=== PATIENT | female | born 1935 | race Caucasian/White ===

== ENCOUNTER 2020-07-17 13:30 | Observation (INO) | payer MEDICARE, SELFPAY ==
[2020-07-17] VITALS (10 sets, daily range): BP systolic 105–162; BP diastolic 58–91; PULSE 61–74; RESP 14–27; TEMP 36.1–36.6; O2SAT 99–100; BMI 19.9
--- NOTE | ~2020-07-17 | XR_ITS ---
EXAMINATION: XR foot RT min 3V DATE: 07/18/2020 15:45 INDICATION: Right foot pain TECHNIQUE: Dorsoplantar, lateral, and 2 oblique views of the right foot were obtained. COMPARISON: None. FINDINGS: The bones are osteopenic which limits the sensitivity for fracture however none is seen. 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 Moderate to severe osteoarthri tis is also noted in the midfoot. The soft tissues are unremarkable. IMPRESSION: 1. No acute osseous abnormality, sensitivity limited by osteopenia. Reviewed, dictated and finalized at location A.
--- NOTE | ~2020-07-17 | CT_ITS ---
EXAMINATION: CT brain wo con DATE: 07/17/2020 14:10 INDICATION: Head injury. TECHNIQUE: Computed tomography (CT) of the head was performed without intravenous contrast. The mA wa s adjusted according to patient size. Iterative reconstruction technique was employed. The dose-lengt h product was 605.33 mGy-cm. COMPARISON: None FINDINGS: There are scattered areas of low attenuation in the cerebral white matter. There is no intr acranial hemorrhage, acute infarction, or abnormal intracranial mass lesion. The ventricles are mariana l in size. There is mild mucosal thickening in the paranasal sinuses. The mastoid air cells are mariana l. There is right lateral scalp soft tissue swelling. IMPRESSION: 1. Extensive nonspecific cerebral white matter disease, which likely represents chronic small vessel ischemic disease. Reviewed, dictated and finalized at location A.
--- NOTE | ~2020-07-17 | XR_ITS ---
EXAMINATION: XR knee RT 3V DATE: 07/18/2020 15:45 INDICATION: Right knee pain TECHNIQUE: Three views of the right knee were obtained. COMPARISON: None. FINDINGS: Alignment is normal. No fracture or osteochondral lesion. There is moderate tricompartmenta l osteoarthritis. No joint effusion/synovitis. Calcified atherosclerosis is noted. IMPRESSION: 1. No acute osseous abnormality. Reviewed, dictated and finalized at location A.
--- NOTE | ~2020-07-17 | CT_ITS ---
EXAMINATION: CT cervical spine wo con EXAM DATE: 07/17/2020 14:10 INDICATION: Head injury with neck pain. TECHNIQUE: Spiral CT of the cervical spine was performed without contrast. Axial images were reviewe d. Coronal and sagittal reformatted images cervical spine were also reviewed. The dose-length produc t (DLP) for this examination was 144.06 mGy-cm. The exposure was tailored according to patient size (auto mA exposure control), and iterative reconstruction (ASIR) was used as additional dose reduction technique. There is no prior study for comparison. FINDINGS: There is mild reversal of the normal cervical lordosis which may be degenerative, positiona l or spasm. 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 There is fusion of the C6-7 vertebral bodies which most likely is degenerative. There is severe d isc disease at C5-6 and C7-T1, moderate to severe at the 2 levels above. Advanced cervical arthropath y. There is no evidence of acute cervical fracture. The odontoid process is intact. Pre-dens space is normal. Prevertebral soft tissue is normal. There are no soft tissue abnormalities identified. The re is no disc space widening or traumatic vertebral body subluxation suspected. Vertebral body and d isc heights are well-maintained. A detailed level by level evaluation of spondylosis can be added a s addendum if requested. IMPRESSION: 1. No acute cervical fracture. 2. Reversal of normal cervical lordosis. 3. Advanced spondylosis. Reviewed, dictated and finalized at location A.
--- NOTE | 2020-07-17 13:34 | ECG_ITS ---
Measurements Intervals [place] Rate: 56 P: -26 MI: 142 QRS: 66 QRSD: 73 T: 40 QT: 408 QTc: 394 Interpretive Statements SINUS BRADYCARDIA WITH SINUS ARRHYTHMIA BASELINE ARTIFACT- I, II, III, AVR, AVL, AVF BORDERLINE ECG Electronically Signed On 07-17-2020 15:46:18 CDT by Dameon Gerard D.O.
--- NOTE | 2020-07-17 14:13 | ED.FALL ---
HPI - Fall General Chief Complaint: Fall Stated Complaint: fall Time Seen by Provider: 07/17/20 13:30 Source: patient Mode of arrival: EMS Limitations: no limitations History of Present Illness HPI Narrative: 85-year-old female Patient indicates that she tripped over a rug in her kitchen and fell and hit the cabinets on the way down She denied being ill before hand, experiencing any dizziness or other distress that might have triggered the episode She seems to have weathered it pretty well, she does have a little bit of neck pain and an increase in the pain of her right leg which has been there for quite a while and which she believes was related to her attempts to repair her garbage disposal But there is no new numbness or weakness, she did not lose consciousness, she does not have a headache, and she does not take blood thinners Related Data Allergies Allergy/AdvReac Type Severity Reaction Status Date / Time aspirin Allergy Unknown Stomach Verified 07/17/20 13:48 cramps iron Allergy Unknown Unknown Verified 07/17/20 13:48 Penicillins Allergy Unknown Blister Verified 07/17/20 13:48 [employer] AdvReac Severe STOMACH Uncoded 07/17/20 13:48 PAIN Review of Systems Review of Systems: All systems reviewed & are unremarkable except as noted in HPI and below Constitutional: Constitutional: Reports no additional constitutional complaints, Denies chills, Denies fever(s) and Denies headache(s) Eyes: Eyes: Reports no additional eye complaints and Denies change in vision ENT: Denies headache(s) and Denies sore throat Cardiovascular: Cardiovascular: Denies chest pain and Denies dyspnea Respiratory: Respiratory: Denies cough and Denies dyspnea Gastrointestinal: Gastrointestinal: Denies abdominal pain, Denies diarrhea and Denies vomiting Genitourinary: Genitourinary: Denies urinary frequency and Denies dysuria Musculoskeletal: Musculoskeletal: Reports back pain, Denies deformity, Reports arthralgias, Reports joint swelling and Denies numbness Integumentary/Breasts: Skin/Breast: Denies rash and Denies wounds Neurologic: Denies headache(s), Denies focal weakness and Denies numbness Psychiatric: Psychiatric: Reports no additional psychiatric complaints Endocrine: Endocrine: Reports no additional endocrine complaints Hematologic/Lymphatic: Hematologic/Lymphatic: Reports no additional hematologic/lymphatic complaints Allergic/Immunologic: Allergic/Immunologic: Reports no additional allergic/immunologic complaints PMFSH Family History Family History Grandparent Family history of cardiovascular disease Cerebrovascular accident Father Family history of malignant neoplasm, Onset Age: 71 Mother Family history of chronic obstructive pulmonary disease, Onset Age: 88 Social History Social History Smoking status: Never smoker Alcohol intake: never Exam Const: General: cooperative, no acute distress and alert Nutritional Appearance: thin Orientation/consciousness: patient oriented x3 (alert) Other: Elderly, frail HENMT: Head: normal to inspection, normocephalic and atraumatic Ears: external ears normal General nose exam: no epistaxis Other: Hard of hearing Eyes: Conjunctivae: conjunctivae normal Pupils: Equal, round and reactive pupils present EOM: EOMs intact bilaterally Neck: Neck: normal visual inspection, supple and no JVD Chest: Other: She has some slight left-sided rib tenderness which is persistent since sustaining a couple fractures a number of years ago Resp: Effort & Inspection: normal respiratory effort and not labored Auscultation: clear to auscultation bilaterally and other (BS =) Cardio: Rate: regular rate Rhythm: regular rhythm Heart sounds: no murmurs GI: GI Palp: Yes Soft to palpation and No Tenderness to palpation present (GI) Other: Soft, nontender :
[2020-07-17 14:59] LABS: Basophils Percent Auto 0.2 % (0.2-1.2); Eosinophils Percent Auto 0.2 % (0-4.4); Hematocrit 40.2 % (37.0-47.0); Hemoglobin 12.8 g/dL (12.0-15.0); Immature Granulocyte Absolute 0.08 K/mm3 (0.00-0.031); Immature Granulocyte Percent A 0.6 % (0-0.5); Lymphocytes Absolute Auto 0.75 K/mm3 (0.9-3.2); Lymphocytes Percent Auto 5.2 % (18.3-44.2); Mean Corpuscular HGB Conc 31.8 g/dl (32-36); Mean Corpuscular Hemoglobin 31.7 pg (26-34); Mean Corpuscular Volume 99.5 fl (80-100); Mean Platelet Volume 9.6 fl (7.4-10.4); Monocytes Absolute Auto 0.9 K/mm3 (0.1-0.6); Monocytes Percent Auto 5.9 % (2.6-8.5); Neutrophils Absolute Auto 12.7 K/mm3 (1.3-6.7); Neutrophils Percent Auto 87.9 % (45.5-73.1); Platelet Count Result 175 k/mm3 (150-375); Red Blood Count 4.04 M/mm3 (4.2-5.4); Red Cell Distribution Width 13.2 % (11.5-14.5); White Blood Count 14.5 K/mm3 (4.5-10.0)
[2020-07-17 15:08] LABS: Anion Gap 2 mmol/L (8-16); Blood Urea Nitrogen 17 mg/dL (7-17); Calcium 8.9 mg/dL (8.4-10.2); Carbon Dioxide 29 mmol/L (22-30); Chloride 106 mmol/L (98-107); Estimated CRCL calculation 29 ml/min; Estimated Glomerular Filt Rate 47; Glucose 102 mg/dL (65-105); Potassium 4.2 mmol/L (3.4-5.0); Sodium 137 mmol/L (137-145)
[2020-07-17 15:27] LABS: Troponin I 0.149 ng/mL (0.000-0.034)
[2020-07-17 16:32] LABS: Add Urine Microscopic? YES; Appearance Urine Cloudy (Clear); Bilirubin Urine Negative (Negative); Blood Urine Negative (Negative); Color Urine Yellow (Yellow); Glucose Urine UA Negative (Negative); Ketones Urine Negative (Negative); Leukocyte Esterase Ur Trace LEU/UL (Negative); Mucus Urine Rare /lpf; Nitrate Urine Positive (Negative); Protein Urine 1+ mg/dL (Negative); RBC Urine 0-2 /hpf (0-2); Squamous Epithelial Cell Urine Occasional /hpf (Few); Urobilinogen Urine Negative mg/dL (<2.0)
[2020-07-17 18:04] LABS: Troponin I 0.255 ng/mL (0.000-0.034)
--- NOTE | 2020-07-17 21:01 | PC.NURSE ---
This patient, Sally Farias, was admitted to IMU Room 207-01. Patient/family oriented to hospital policies and general routines including ID bracelet, bed and alarms, visiting hours, pain management, procedures, bathroom and other care routines, personal items, smoking policy, room service/diet, and visiting hours. Information on how to activate the Rapid Response Team has been discussed. Patient/Family are encouraged to report perceived risks to care and to ask questions if they do not understand what they are told or what they should do.
[2020-07-17 22:06] LABS: Troponin I 0.352 ng/mL (0.000-0.034)
--- NOTE | 2020-07-17 22:31 | PM.IMHP ---
H&P: HPI History of Present Illness Date/Time: 07/17/20 22:31 this is a 85-year-old female patient who resides home alone. The patient stated that she had gotten up and was getting ready to go shopping with her daughter. The patient stated that she grabs some food for the birds and was going to feed him. She said she slipped on a rug and fell down. She was having some back pain and felt that she could get up off the floor. She denies hitting her head or losing any consciousness. She denied any shortness of breath or any chest pain. The patient stated that she was not able to get off the floor and she crawled over to where the phone was not knocked the phone off the hook and was able to call somebody to come help her. Her cervical spine CT was read as no acute cranial fracture reversal of normal cervical lordosis. Advanced spondylosis. Head CT was read as extensive nonspecific cerebral white matter disease, which likely represents chronic small vessel ischemic disease. White count was noted to be 14.5. Creatinine 1.1. GFR 47. Troponin 0.149 at baseline. Second troponin was 0.255. Third troponin 0.352. This could possibly just be from the fall. The patient was not short of breath or having any chest pain. The patient's EKG was read as sinus bradycardia with sinus arrhythmia. The patient is being admitted to observation on the date of service of 07/17/2020. Chief Complaint: Fall Review of Systems Review of Systems: All systems reviewed & are unremarkable except as noted in HPI and below Constitutional: Constitutional: Reports as per HPI and Reports no additional constitutional complaints Eyes: Eyes: Reports as per HPI and Reports no additional eye complaints ENT: Reports system reviewed and no additional complaints, except as documented and Reports Normal hearing present Cardiovascular: Cardiovascular: Reports no additional cardiovascular complaints Respiratory: Respiratory: Reports no additional respiratory complaints and Reports no additional respiratory complaints Gastrointestinal: Gastrointestinal: Reports as per HPI and Reports no additional gastrointestinal complaints Musculoskeletal: Musculoskeletal: Reports no additional musculoskeletal complaints Integumentary/Breasts: Skin/Breast: Reports system reviewed and no additional complaints, except as docu and Reports as per HPI Neurologic: Reports system reviewed and no additional complaints, except as documented, Reports as per HPI and Reports Normal hearing present Psychiatric: Psychiatric: Reports no additional psychiatric complaints and Reports as per HPI Endocrine: Endocrine: Reports no additional endocrine complaints Hematologic/Lymphatic: Hematologic/Lymphatic: Reports no additional hematologic/lymphatic complaints Allergic/Immunologic: Allergic/Immunologic: Reports no additional allergic/immunologic complaints [facility] Past Medical History Medical History (Updated 07/17/20 @ 22:38 by Judi Olivia NP) Basal cell carcinoma Surgical History Surgical History (Updated 07/17/20 @ 22:38 by Judi Olivia NP) History of removal of pigmented skin lesion Right forearm Hx of cholecystectomy Family History Family History Grandparent Family history of cardiovascular disease Cerebrovascular accident Father Family history of malignant neoplasm, Onset Age: 71 Mother Family history of chronic obstructive pulmonary disease, Onset Age: 88 Social History Social History (Updated 07/17/20 @ 22:41 by Judi Olivia NP) Social History: The patient lives home alone. She is . She was a homemaker. She is a lifelong nonsmoker. She does not use any marijuana or illicit drugs. She does use any alcohol. She has 2 children which her daughters. She is listed as a full code. Her daughters are the durable power civil rights attorney for healthcare. Smoking status: Never smoker Alcohol intake: never Subs
[2020-07-17 22:47] LABS: Creatine Kinase 324 U/L (30-135)
[2020-07-18] VITALS (12 sets, daily range): BP systolic 104–134; BP diastolic 49–61; PULSE 54–85; RESP 12–18; TEMP 36.2–37.1; O2SAT 99–100
[2020-07-18 13:14] LABS: Basophils Percent Auto 0.4 % (0.2-1.2); Eosinophils Absolute Auto 0.1 K/mm3 (0-0.3); Eosinophils Percent Auto 1.1 % (0-4.4); Hematocrit 39.7 % (37.0-47.0); Hemoglobin 12.7 g/dL (12.0-15.0); Immature Granulocyte Absolute 0.05 K/mm3 (0.00-0.031); Immature Granulocyte Percent A 0.5 % (0-0.5); Lymphocytes Absolute Auto 1.52 K/mm3 (0.9-3.2); Lymphocytes Percent Auto 16.3 % (18.3-44.2); Mean Corpuscular Hemoglobin 31.8 pg (26-34); Mean Corpuscular Volume 99.3 fl (80-100); Mean Platelet Volume 9.4 fl (7.4-10.4); Monocytes Absolute Auto 0.7 K/mm3 (0.1-0.6); Monocytes Percent Auto 7.9 % (2.6-8.5); Neutrophils Absolute Auto 6.9 K/mm3 (1.3-6.7); Neutrophils Percent Auto 73.8 % (45.5-73.1); Platelet Count Result 177 k/mm3 (150-375); Red Cell Distribution Width 13.2 % (11.5-14.5); White Blood Count 9.3 K/mm3 (4.5-10.0)
[2020-07-18 13:26] LABS: Alanine Aminotransferase 13 U/L (4-35); Albumin Level 3.6 g/dL (3.5-5.1); Alkaline Phosphatase 95 U/L (38-126); Anion Gap 5 mmol/L (8-16); Aspartate Amino Transferase 32 U/L (14-36); Bilirubin,Total 1.3 mg/dL (0.2-1.3); Blood Urea Nitrogen 18 mg/dL (7-17); Calcium 8.8 mg/dL (8.4-10.2); Carbon Dioxide 25 mmol/L (22-30); Chloride 106 mmol/L (98-107); Estimated CRCL calculation 26 ml/min; Estimated Glomerular Filt Rate 43; Glucose 89 mg/dL (65-105); Potassium 4.2 mmol/L (3.4-5.0); Sodium 136 mmol/L (137-145)
[2020-07-18 13:47] LABS: Troponin I 0.685 ng/mL (0.000-0.034)
--- NOTE | 2020-07-18 15:12 | PM.IMPN ---
Progress Note: A&P Assessment and Plan (1) Elevated troponin: Code(s): R77.8 - Other specified abnormalities of plasma proteins Status: Acute Assessment and Plan: Could be related to the fall. Order CK and TRop, Hydrate Pt. Consult cardiology emmy if necessary (2) Fall as cause of accidental injury at home as place of occurrence: Code(s): W19.XXXA - Unspecified fall, initial encounter; Y92.009 - Unspecified place in unspecified non-institutional (private) residence as the place of occurrence of the external cause Status: Acute Assessment and Plan: The patient stated she accidentally slipped on a rug. CT brain negative (3) Vitamin D deficiency: Code(s): E55.9 - Vitamin D deficiency, unspecified Status: Acute Assessment and Plan: Continue with vitamin-D Subjective Date/time seen: 07/18/20 15:12 Interval history: 85-year-old female patient who resides home alone. The patient stated that she had gotten up and was getting ready to go shopping with her daughter. Troponin slightly going up.Tele Shows some bradycardia, Rpt TRop in AM. Some concerns of bursitis I will order xray of foot and knee. Review of Systems Review of Systems: All systems reviewed & are unremarkable except as noted in HPI and below Exam Const: General: cooperative, healthy appearing, comfortable, no acute distress, well developed, alert, awake and Physically active Nutritional Appearance: average body habitus and thin Orientation/consciousness: oriented to person, oriented to place, oriented to time and patient oriented x3 Limitations: no limitations (Hard of hearing) Chest: Chest palpation & inspection: normal inspection of the chest Resp: Effort & Inspection: normal respiratory effort Auscultation: clear to auscultation bilaterally Percussion: percussion normal Cardio: Palpation: normal PMI Rate: regular rate Rhythm: regular rhythm Heart sounds: S1 normal heart sound present and S2 normal heart sound present Peripheral pulses: Peripheral pulses 2+ throughout GI: Inspection: normal to inspection Auscultation: normal bowel sounds Skin: General skin exam: normal color Lesions: no lesions Rashes: no rashes Trauma: no lacerations or abrasions Wounds: no wounds Hair: normal Nails: normal Neuro: General: oriented to person, oriented to place, oriented to time and patient oriented x3 Cranial nerves: Yes Equal, round and reactive pupils present and Yes hard of hearing Cognition (Neuro): normal cognition Speech: normal speech Objective Data Vital Signs Vital Signs: Vital Signs - 24 hr 07/17/20 16:00 07/17/20 18:22 07/17/20 19:00 Temperature Pulse Rate 74 63 68 Respiratory Rate 19 14 27 H Blood Pressure 137/58 L 127/64 Pulse Oximetry 100 100 100 07/17/20 19:01 07/17/20 20:38 07/17/20 20:40 Temperature 36.1 C L Pulse Rate 64 64 61 Respiratory Rate 23 H 19 16 Blood Pressure 159/59 H 162/64 H 130/67 Pulse Oximetry 100 99 100 07/17/20 21:00 07/17/20 22:00 07/18/20 00:00 Temperature 36.2 C L Pulse Rate 66 68 Respiratory Rate 16 Blood Pressure 107/59 L Pulse Oximetry 99 99 07/18/20 02:00 07/18/20 04:00 07/18/20 06:00 Temperature 36.3 C L Pulse Rate 68 61 59 L Respiratory Rate 16 Blood Pressure 133/53 L Pulse Oximetry 99 07/18/20 08:00 07/18/20 10:00 07/18/20 11:48 Temperature 37.1 C 37.1 C Pulse Rate 55 L 79 70 Respiratory Rate 18 12 Blood Pressure 117/59 L 104/49 L Pulse Oximetry 100 100 07/18/20 12:00 07/18/20 14:00 Temperature Pulse Rate 64 74 Respiratory Rate Blood Pressure Pulse Oximetry Intake/Output Intake/Output: Intake & Output 07/15/20 07/16/20 07/17/20 07/18/20 23:59 23:59 23:59 23:59 Intake Total 240 Output Total 300 Balance -60 Meds/Results Medications: Active Medications Generic Name Dose Route Start Last Admin Trade Name Freq PRN Reason Stop Dose Admin Acetaminophen 650
--- NOTE | 2020-07-18 22:09 | PC.NURSE ---
This patient, Sally Farias, was received from IMU on 07/18/20 at 2200. Patient/family oriented to unit policies and routines. Report received from ESTEPHANIA Hill. Pt pleasant and resting comfortably.
--- NOTE | 2020-07-18 22:35 | PC.NURSE ---
This patient, Sally Farias, was transferred to [[id number] ] on 07/18/20 at 2200. Personal belongings sent with patient. Report given to [Mariah BEST ]. Appropriate documentation sent with patient.
[2020-07-19] VITALS (11 sets, daily range): BP systolic 115–153; BP diastolic 52–90; PULSE 57–77; RESP 16–20; TEMP 36.1–36.6; O2SAT 99–100
[2020-07-19 08:29] LABS: Creatine Kinase 184 U/L (30-135)
[2020-07-19 08:46] LABS: Troponin I 0.239 ng/mL (0.000-0.034)
--- NOTE | 2020-07-19 11:51 | PM.IMPN ---
Progress Note: A&P Assessment and Plan (1) Elevated troponin: Code(s): R77.8 - Other specified abnormalities of plasma proteins Status: Acute Assessment and Plan: Could be related to the fall. Order CK and TRop, Hydrate Pt. TRop minimal raise (2) Fall as cause of accidental injury at home as place of occurrence: Code(s): W19.XXXA - Unspecified fall, initial encounter; Y92.009 - Unspecified place in unspecified non-institutional (private) residence as the place of occurrence of the external cause Status: Acute Assessment and Plan: The patient stated she accidentally slipped on a rug. CT brain negative Some bursitis in r knee continue theraphy (3) Vitamin D deficiency: Code(s): E55.9 - Vitamin D deficiency, unspecified Status: Acute Assessment and Plan: Continue with vitamin-D Subjective Date/time seen: 07/19/20 11:51 Interval history: 85-year-old female patient who resides home alone. The patient stated that she had gotten up and was getting ready to go shopping with her daughter. Troponin slightly going up.Trop slightly elevation non cardiac ? after fall. Some concerns of bursitis I will order xray of foot and knee. Ongoing pain in R knee, Pt to have some therapy and hydration today home tomorrow. Review of Systems Review of Systems: All systems reviewed & are unremarkable except as noted in HPI and below Exam Narrative: Exam Narrative: Mild disorientation, TTP over R knee, dry tongue and mouth Const: General: cooperative, healthy appearing, comfortable, no acute distress, well developed, alert, awake and Physically active Nutritional Appearance: average body habitus and thin Orientation/consciousness: oriented to person, oriented to place, oriented to time and patient oriented x3 Limitations: no limitations (Hard of hearing) HENMT: Head: normal to inspection, No palpable skull fracture present and normocephalic Ears: external ears normal and hearing grossly impaired bilaterally General nose exam: Normal external nose present and Normal nares present Eyes: General: appearance normal, both eyes and all related structures Alignment and Position: alignment normal Periorbital: periorbital findings normal Eyelids: eyelids normal Conjunctivae: conjunctivae normal Sclera: sclerae normal Cornea: corneas normal Pupils: Equal, round and reactive pupils present EOM: EOMs intact bilaterally Neck: Neck: normal visual inspection, full ROM, no lymphadenopathy, trachea midline and supple Thyroid: thyroid normal Carotids: normal carotid upstroke Lymphatic: no lymphadenopathy noted Chest: Chest palpation & inspection: normal inspection of the chest Resp: Effort & Inspection: normal respiratory effort Auscultation: clear to auscultation bilaterally Percussion: percussion normal Cardio: Palpation: normal PMI Rate: regular rate Rhythm: regular rhythm Heart sounds: S1 normal heart sound present and S2 normal heart sound present Peripheral pulses: Peripheral pulses 2+ throughout GI: Inspection: normal to inspection Auscultation: normal bowel sounds Neuro: Cranial nerves: Yes hard of hearing Psych: Judgement: Good judgement present (Psych) Objective Data Vital Signs Vital Signs: Vital Signs - 24 hr 07/18/20 12:00 07/18/20 14:00 07/18/20 16:00 Temperature 36.4 C Pulse Rate 64 74 85 Respiratory Rate 12 Blood Pressure 134/61 Pulse Oximetry 100 07/18/20 18:00 07/18/20 20:00 07/19/20 00:00 Temperature 36.2 C L 36.1 C L Pulse Rate 76 68 66 Respiratory Rate 16 20 Blood Pressure 104/50 L 144/58 H Pulse Oximetry 99 100 07/19/20 04:00 07/19/20 08:00 07/19/20 10:00 Temperature 36.3 C L 36.5 C Pulse Rate 70 57 L 75 Respiratory Rate 18 18 Blood Pressure 137/52 L 120/52 L Pulse Oximetry 100 100 Intake/Output Intake/Output: Intake & Output 07/16/20 07/17/20 07/18/20 07/19/20 23:59 23:59 23:59 23:59 Intake Total 490 240 Output
[2020-07-19] MEDS: SODIUM CHLORIDE 0.9% IV 1,000 ML 100 ML IV CONT ×2 (12:18→22:58)
[2020-07-20] VITALS (11 sets, daily range): BP systolic 111–154; BP diastolic 51–69; PULSE 60–74; RESP 14–20; TEMP 36.1–36.6; O2SAT 93–100
[2020-07-20] MEDS: SODIUM CHLORIDE 0.9% IV 1,000 ML 100 ML IV CONT ×2 (09:16→21:08)
--- NOTE | 2020-07-20 12:48 | PM.IMPN ---
Progress Note: A&P Assessment and Plan (1) Elevated troponin: Code(s): R77.8 - Other specified abnormalities of plasma proteins Status: Acute Assessment and Plan: Could be related to the fall. Pt has been hydrated sufficiently. (2) Fall as cause of accidental injury at home as place of occurrence: Code(s): W19.XXXA - Unspecified fall, initial encounter; Y92.009 - Unspecified place in unspecified non-institutional (private) residence as the place of occurrence of the external cause Status: Acute Assessment and Plan: The patient stated she accidentally slipped on a rug. CT brain negative ? early dementia (3) Vitamin D deficiency: Code(s): E55.9 - Vitamin D deficiency, unspecified Status: Acute Assessment and Plan: Continue with vitamin-D (4) Bursitis: Code(s): M71.9 - Bursopathy, unspecified Status: Acute Assessment and Plan: R knee pain and bursitis causing recurrent falls at home, consult orthopedics, cont THeraphy. Subjective Date/time seen: 07/20/20 12:48 Interval history: 85-year-old female patient who resides home alone. The patient stated that she had gotten up and was getting ready to go shopping with her daughter. Troponin slightly going up.Trop slightly elevation non cardiac ? after fall. Some concerns of bursitis I will order xray of foot and knee. Ongoing pain in R knee, Pt to have some therapy will consult orthopedics, daughter concerned that she is not able to walk with knee pain and worried whether she can discharge home. Review of Systems Review of Systems: All systems reviewed & are unremarkable except as noted in HPI and below Exam Narrative: Exam Narrative: Mild disorientation, TTP over R knee, dry tongue and mouth, very confused at times and paranoid Const: General: cooperative, healthy appearing, comfortable, no acute distress, well developed, alert, awake and Physically active Nutritional Appearance: average body habitus and thin Orientation/consciousness: oriented to person, oriented to place, oriented to time and patient oriented x3 Limitations: no limitations (Hard of hearing) Cardio: Palpation: normal PMI Rate: regular rate Rhythm: regular rhythm Heart sounds: S1 normal heart sound present and S2 normal heart sound present Peripheral pulses: Peripheral pulses 2+ throughout GI: Inspection: normal to inspection Auscultation: normal bowel sounds Skin: Hair: normal Nails: normal Neuro: General: oriented to person, oriented to place, oriented to time and patient oriented x3 Cranial nerves: Yes Equal, round and reactive pupils present and Yes hard of hearing Cognition (Neuro): normal cognition Objective Data Vital Signs Vital Signs: Vital Signs - 24 hr 07/19/20 14:00 07/19/20 16:00 07/19/20 17:30 Temperature 36.6 C 36.6 C Pulse Rate 77 71 60 Respiratory Rate 18 20 Blood Pressure 115/90 153/58 H Pulse Oximetry 99 100 07/19/20 18:00 07/19/20 20:00 07/19/20 20:14 Temperature 36.6 C 36.5 C Pulse Rate 76 58 L 69 Respiratory Rate 18 16 Blood Pressure 120/72 147/83 H Pulse Oximetry 99 100 07/20/20 02:00 07/20/20 03:56 07/20/20 04:00 Temperature 36.4 C L Pulse Rate 63 60 61 Respiratory Rate 18 Blood Pressure 154/52 H Pulse Oximetry 99 07/20/20 06:00 07/20/20 08:00 07/20/20 10:00 Temperature 36.5 C 36.4 C Pulse Rate 62 62 69 Respiratory Rate 20 18 Blood Pressure 123/51 L 118/57 L Pulse Oximetry 100 100 Intake/Output Intake/Output: Intake & Output 07/17/20 07/18/20 07/19/20 07/20/20 23:59 23:59 23:59 23:59 Intake Total 490 2010 1320 Output Total 300 250 400 Balance 190 1760 920 Meds/Results Medications: Active Medications Generic Name Dose Route Start Last Admin Trade Name Mikelq PRN Reason Stop Dose Admin Acetaminophen 650 mg 07/17/20 16:09 Acetaminophen 325 Mg Tablet PO Q4H PRN Mild Pain (1-3) or Fever Ceftriaxone Sodium/Dextrose
--- NOTE | 2020-07-20 14:51 | PM.CNOR ---
Assessment and Plan Assessment and plan (1) Degenerative joint disease of knee: Qualifiers: Osteoarthritis type: primary Laterality: right Qualified Code(s): M17.11 - Unilateral primary osteoarthritis, right knee Code(s): M17.10 - Unilateral primary osteoarthritis, unspecified knee Status: Acute Assessment and Plan: Radiographs of the right knee from July 18 reveal moderate tricompartmental osteoarthritis. Alignment is normal. No fracture or osteochondral lesion. No joint effusion/synovitis. On exam, no prepatellar swelling. No redness, warmth. No abrasion. No evidence of prepatellar bursitis at this time. No knee joint effusion noted. Patient does have a notable flexion contracture of 10-15?. She has mild medial joint line tenderness with palpation. Discussed condition, nature, etiology and course of natural history. Conservative and operative treatment options reviewed as well as risks and benefits of each. Today we did discuss cortisone injection of the right knee for pain relief given osteoarthritis on radiographs for the patient declines. She states that her knee does not hurt her enough for an injection at this point. She would benefit from physical therapy for lower extremity strengthening. Recommend use of walker or cane for balance given history of multiple falls. The patient would benefit from quadriceps strengthening. The patient may follow up in the outpatient orthopedic clinic if she would like to proceed with cortisone injection for right knee arthritis. Again, no evidence of active prepatellar bursitis or signs of a prepatellar bursa infection. Thank you for allowing us to assist in the care of this patient. Patient may follow up in our outpatient orthopedic clinic. History of Present Illness HPI Consult date: 07/20/20 Requesting physician: Gladys Mon MD Consult reason: other (Right Knee Bursitis ) Chief complaint: nstemi Narrative: 85-year-old female admitted [facility] status post fall at July 17. Orthopedic consult requested today by hospitalist Dr. Mon for right knee bursitis and pain. Per patient and medical record, the patient fell at home after slipping on a rug when getting ready to go shopping with her daughter. The patient denies loss of consciousness. Negative cervical spine CT. Per the medical record, the patient attributes her recurrent falls to right knee pain. A right knee and right foot radiograph was obtained on July 18. Right foot radiographs reveals advanced osteoarthritis at the first metatarsophalangeal joint, moderate to severe osteoarthritis noted in the midfoot and no evidence of fracture. Radiographs of the right knee revealed moderate tricompartmental osteoarthritis., no joint effusion/synovitis. patient reports intermittent right knee pain. She reports having recently had a right knee bursitis after hitting her knee on something in her kitchen. Per patient report, she did her primary care physician who diagnosed her with a bursitis and told her to rub the area. There is no evidence of this visit within the chart. No previous indication for right knee prepatellar bursitis. Today, the patient reports mild knee pain. She denies difficulty with ambulation due to her knee pain. Review of Systems Constitutional: Constitutional: Reports no additional constitutional complaints, Denies excessive sweating, Denies fever(s) and Denies weight gain Eyes: Eyes: Reports no additional eye complaints and Denies change in vision ENT: Reports system reviewed and no additional complaints, except as documented and Reports Normal hearing present Cardiovascular: Cardiovascular: Denies chest pain, Denies diaphoresis, Denies leg ulcers and Denies dyspnea on exertion Respiratory: Respiratory: Reports no additional respiratory complaints, Denies cough and Denies dyspnea on exertion Gastrointestinal: Gastrointestinal: Reports no additional gastrointestinal complaints
[2020-07-21 02:00] VITALS: BP 140/67; PULSE 70; RESP 14; TEMP 36.7; O2SAT 96
[2020-07-21 05:47] VITALS: BP 149/69; PULSE 90; RESP 14; TEMP 37.1; O2SAT 97
[2020-07-21] MEDS: SODIUM CHLORIDE 0.9% IV 1,000 ML 100 ML IV CONT (08:03)
[2020-07-21 10:00] VITALS: BP 115/53; PULSE 61; RESP 18; TEMP 35.9; O2SAT 100
--- NOTE | 2020-07-21 13:37 | PM.DS ---
DS: Admitting Diagnosis Admitting Diagnosis Admitting Diagnosis: Chief Complaint: Fall DS: Discharge Diagnosis Discharge Diagnosis (1) Elevated troponin: Code(s): R77.8 - Other specified abnormalities of plasma proteins Status: Acute Assessment and Plan: Could be related to the fall. Pt has been hydrated sufficiently. (2) Fall as cause of accidental injury at home as place of occurrence: Code(s): W19.XXXA - Unspecified fall, initial encounter; Y92.009 - Unspecified place in unspecified non-institutional (private) residence as the place of occurrence of the external cause Status: Acute Assessment and Plan: The patient stated she accidentally slipped on a rug. CT brain negative ? early dementia (3) Vitamin D deficiency: Code(s): E55.9 - Vitamin D deficiency, unspecified Status: Acute Assessment and Plan: Continue with vitamin-D (4) Bursitis: Code(s): M71.9 - Bursopathy, unspecified Status: Deleted Assessment and Plan: R knee pain and bursitis causing recurrent falls at home, consult orthopedics, cont THeraphy. DS: Summary Hospital Course Reason for hospitalization: this is a 85-year-old female patient who resides home alone. The patient stated that she had gotten up and was getting ready to go shopping with her daughter. The patient stated that she grabs some food for the birds and was going to feed him. She said she slipped on a rug and fell down. She was having some back pain and felt that she could get up off the floor. She denies hitting her head or losing any consciousness. She denied any shortness of breath or any chest pain. The patient stated that she was not able to get off the floor and she crawled over to where the phone was not knocked the phone off the hook and was able to call somebody to come help her. Her cervical spine CT was read as no acute cranial fracture reversal of normal cervical lordosis. Advanced spondylosis. Head CT was read as extensive nonspecific cerebral white matter disease, which likely represents chronic small vessel ischemic disease. White count was noted to be 14.5. Creatinine 1.1. GFR 47. Troponin 0.149 at baseline. Second troponin was 0.255. Third troponin 0.352. This could possibly just be from the fall. The patient was not short of breath or having any chest pain. The patient's EKG was read as sinus bradycardia with sinus arrhythmia. The patient is being admitted to observation on the date of service of 07/17/2020. Chief Complaint: Fall Hospital Course: Patient remained clinically stable was able to participate physical therapy, discharge the patient to nursing patient to follow-up with primary care as soon as possible Status at Discharge Functional status at discharge: uses cane/walker Overall status at discharge: patient is back to baseline Time Spent with Patient Time attestation: Total time spent providing and/or coordinating discharge services: Patient was seen and examined at the time of the discharge Condition at discharge is stable Code status: Full code. Time spent preparing discharge summary, discharge medications, discussing discharge planning with correctional case manager and patient is 35 minutes. Time spent: Greater than 30 minutes Exam Narrative: Exam Narrative: Elderly frail Patient is comfortable, NAD HEENT: eyes are clear and none icteric LUNGS:CTA HEART: RR S1S2 ABD: BS+, Soft and nontender Lower extremities: no edema SKIN: nonjaundiced Neuro: grossly intact. DS: Data Data Completed and Pending Labs on day of discharge: Labs from last 24 hours 07/20/20 17:33 SARS-CoV-2 RNA (RT-PCR) Pending Discharge Plan Discharge Attending physician on discharge: Brielle Loyd Consulting providers: Brielle Loyd ; Lily Engel ; Raheem Callahan ; Judi Olivia ; Silvestre Zhang ; Michael Hines V. ; Dameon Gerard ; Jonathan Bianchi Discharging Clinician: Brielle Loyd
[2020-07-21 14:00] VITALS: BP 126/51; PULSE 68; RESP 18; TEMP 36.1; O2SAT 98
[2020-07-21 14:36] LABS: EDCOVIDSCREEN Negative (Negative)
== END 2020-07-21 16:00 ==
LOC: ANHED 16:17 → ANHIMU 07-18 04:39 → ANH2MED 07-19 11:50 → ANHIMU 07-23 13:15
PROVIDERS: Nurse Practitioner; Admitting Provider Family Medicine; Emergency Provider Emergency Medicine; PCP Internal Medicine; Visit Provider Family Medicine
DX: R77.8 Other specified abnormalities of plasma proteins (principal); M17.11 Unilateral primary osteoarthritis, right knee; W01.198A Fall on same level from slipping, tripping and stumbling with subsequent striking against other object, initial encounter; E55.9 Vitamin D deficiency, unspecified; M71.9 Bursopathy, unspecified; M47.812 Spondylosis without myelopathy or radiculopathy, cervical region; Z79.899 Other long term (current) drug therapy; Z20.822 Contact with and (suspected) exposure to COVID-19
CPT/HCPCS: 36415; 70450; 72125; 73562; 73630; 80048; 80053; 81001; 82550; 83735; 83874; 84443; 84484; 85025; 87077; 87086; 87088; 87186; 87426; 93005; 96361; 96365; 97110; 97116; 97161; 99285; A9270; C9803; G0378; J0696; J7030; U0003; U0005

== ENCOUNTER 2021-04-28 20:47 | Inpatient (IN) | payer MEDICARE, SELFPAY ==
--- NOTE | ~2021-04-28 | CT_ITS ---
EXAMINATION: CT brain wo con DATE: 04/30/2021 08:57 INDICATION: Confusion. TECHNIQUE: Computed tomography (CT) of the head was performed without intravenous contrast. The mA wa s adjusted according to patient size. Iterative reconstruction technique was employed. The dose-lengt h product was 908.00 mGy-cm. COMPARISON: Head CT 04/28/2021 FINDINGS: There are scattered areas of low attenuation in the cerebral white matter. There is no intr acranial hemorrhage, acute infarction, or abnormal intracranial mass lesion. The ventricles are mariana l in size. There is mild mucosal thickening in the paranasal sinuses. The mastoid air cells are mariana l. The orbits are normal. IMPRESSION: 1. Stable extensive nonspecific cerebral white matter disease, which likely represents chronic small vessel ischemic disease. Reviewed, dictated and finalized at location A. CLEANER IMPRESSION: 1. Stable extensive nonspecific cerebral white matter disease, which likely rep resents chronic small vessel ischemic disease.
--- NOTE | ~2021-04-28 | XR_ITS ---
EXAMINATION: XR chest 2V 04/28/2021 23:09 INDICATION: Fever and cough PROCEDURE: 2 view chest COMPARISON: 03/28/2018 FINDINGS: The lungs are clear. The cardiomediastinal silhouette is within normal limits. There are no pleural effusions. There is no pneumothorax suspected. Generalized osteopenia. There is polyarti cular osteoarthritis of the shoulders. IMPRESSION: 1: NO ACUTE CARDIOPULMONARY DISEASE. Reviewed, dictated and finalized at location A. SANDER
--- NOTE | ~2021-04-28 | CT_ITS ---
EXAMINATION: CT brain wo con DATE: 04/28/2021 22:19 INDICATION: Altered mental status TECHNIQUE: Computed tomography (CT) of the head was performed without intravenous contrast. The dose- length product was 605.33 mGy-cm. Automated exposure control and iterative reconstruction technique w ere employed. COMPARISON: CT dated 07/17/2020 FINDINGS: Generalized atrophy. There are scattered severe periventricular and subcortical white matte r changes, most likely related to small vessel ischemic disease (microangiopathy). No ventriculomegal y or midline shift. Basilar cisterns are patent. No acute intracranial hemorrhage, infarction, mass o r mass effect. Paranasal sinuses and mastoids are pneumatized. No depressed skull fractures. IMPRESSION: 1. No acute intracranial abnormality. 2: Chronic age-related findings. Reviewed, dictated and finalized at location A. SPERSON ART OBJECTS
--- NOTE | 2021-04-28 20:56 | ECG_ITS ---
Measurements Intervals Navarro Rate: 80 P: -12 HI: 155 QRS: 67 QRSD: 59 T: 22 QT: 342 QTc: 395 Interpretive Statements SINUS RHYTHM WITH SINUS ARRHYTHMIA LOW QRS VOLTAGE IN PRECORDIAL LEADS [QRS DEFLECTION < 1.0 mV IN CHEST LEADS] BASELINE ARTIFACT LIMITS INTERPRETABILITY ABNORMAL ECG NO SIGNIFICANT CHANGE FROM PREVIOUS STUDY Electronically Signed On 04-29-2021 9:49:29 LIFE EDUCATOR by Rohith Domínguez M.D.
[2021-04-28 20:57] VITALS: BP 111/60; PULSE 78; RESP 17; TEMP 36.7; O2SAT 97
--- NOTE | 2021-04-28 21:06 | PC.NURSE ---
Pt here for AMS and weakness, A&Ox2 on arrival to ED. Pt placed on bed alarm, yellow clasp applied to bracelet, fall precautions initiated. Pt has soiled underwear - pt cleaned and dried w/ depends placed. Pt given warm blanket.
[2021-04-28 21:08] LABS: Basophils Absolute Auto 0.1 K/mm3 (0.0-0.1); Basophils Percent Auto 0.3 % (0.2-1.2); Eosinophils Percent Auto 0.2 % (0-4.4); Immature Granulocyte Percent A 0.6 % (0-0.5); Lymphocytes Absolute Auto 1.54 K/mm3 (0.9-3.2); Lymphocytes Percent Auto 9.4 % (18.3-44.2); Mean Corpuscular HGB Conc 31.6 g/dl (32-36); Mean Corpuscular Hemoglobin 32.1 pg (26-34); Mean Corpuscular Volume 101.6 fl (80-100); Mean Platelet Volume 9.6 fl (7.4-10.4); Monocytes Absolute Auto 1.5 K/mm3 (0.1-0.6); Monocytes Percent Auto 8.9 % (2.6-8.5); Neutrophils Absolute Auto 13.1 K/mm3 (1.3-6.7); Neutrophils Percent Auto 80.6 % (45.5-73.1); Platelet Count Result 208 k/mm3 (150-375); Red Blood Count 3.74 M/mm3 (4.2-5.4); Red Cell Distribution Width 13.5 % (11.5-14.5); White Blood Count 16.3 K/mm3 (4.5-10.0)
--- NOTE | 2021-04-28 21:11 | PC.NURSE ---
BS 146
[2021-04-28 21:12] LABS: Glucose Point of Care 146 mg/dl (65-105)
[2021-04-28 21:13] LABS: Add Urine Microscopic? YES; Appearance Urine Clear (Clear); Bacteria Urine Trace /hpf; Bilirubin Urine Negative (Negative); Blood Urine Negative (Negative); Color Urine Yellow (Yellow); Glucose Urine UA Negative (Negative); Ketones Urine Negative (Negative); Leukocyte Esterase Ur Trace LEU/UL (Negative); Mucus Urine Rare /lpf; Nitrate Urine Negative (Negative); Protein Urine Negative (Negative); RBC Urine 0-2 /hpf (0-2); Specific Grav Ur 1.014 (1.001-1.035); Squamous Epithelial Cell Urine Rare /hpf (Few); Urobilinogen Urine Negative mg/dL (<2.0)
[2021-04-28 21:17] LABS: INR 1.1; Prothrombin Time 14.1 Seconds (11.1-14.7)
[2021-04-28 21:18] LABS: Partial Thromboplastin Time 29.2 SECONDS (22.3-36.8)
[2021-04-28 21:21] LABS: Alanine Aminotransferase 10 U/L (4-35); Albumin Level 3.8 g/dL (3.5-5.1); Alkaline Phosphatase 96 U/L (38-126); Anion Gap 6 mmol/L (8-16); Aspartate Amino Transferase 22 U/L (14-36); Bilirubin,Total 1.1 mg/dL (0.2-1.3); Blood Urea Nitrogen 19 mg/dL (7-17); Calcium 8.2 mg/dL (8.4-10.2); Carbon Dioxide 26 mmol/L (22-30); Chloride 104 mmol/L (98-107); Estimated CRCL calculation 24 ml/min; Estimated Glomerular Filt Rate 43; Glucose 129 mg/dL (65-110); Sodium 136 mmol/L (137-145)
--- NOTE | 2021-04-28 22:07 | ED.AMS ---
HPI - Altered Mental Status General Chief Complaint: Altered Mental Status Stated Complaint: AMS, WEAKNESS (UTI?) Time Seen by Provider: 04/28/21 20:59 Source: patient History of Present Illness HPI narrative: Patient presents with change in mental status. Patient has aides that were evaluating her today and felt she was acting abnormal they notified the family who also felt she was acting abnormal center to the ER for evaluation. Patient normally lives alone and is able to care for self. She is normally alert and oriented x3 but family thought she was more confused family was concerned she had a UTI as this is happened previously. Related Data Allergies Allergy/AdvReac Type Severity Reaction Status Date / Time aspirin Allergy Unknown Stomach Verified 08/03/20 14:53 cramps iron Allergy Unknown Unknown Verified 08/03/20 14:53 Penicillins Allergy Unknown Blister Verified 08/03/20 14:53 [employer] AdvReac Severe STOMACH Uncoded 08/03/20 14:53 PAIN Review of Systems Review of Systems: ROS unobtainable: Yes unobtainable due to medical condition PMFSH Past Medical History Medical History Basal cell carcinoma Claustrophobia Degenerative joint disease of knee Dysthymia Elevated troponin Fall as cause of accidental injury at home as place of occurrence Hearing loss Right knee DJD Right knee pain UTI (urinary tract infection) Vitamin D deficiency Surgical History Surgical History History of hysterectomy History of laparoscopy History of removal of pigmented skin lesion Right forearm Hx of cholecystectomy Family History Family History Grandparent Family history of cardiovascular disease Cerebrovascular accident Father Family history of malignant neoplasm, Onset Age: 71 Mother Family history of chronic obstructive pulmonary disease, Onset Age: 88 Aneurysm Other Hypertension Social History Social History Social History: The patient lives home alone. She is . She was a homemaker. She is a lifelong nonsmoker. She does not use any marijuana or illicit drugs. She does use any alcohol. She has 2 children which her daughters. She is listed as a full code. Her daughters are the durable power deputy commonwealth's attorney for healthcare. Smoking status: Never smoker Alcohol intake: never Substance use: never Spiritual care concerns: No Exam Narrative: GENERAL: Well-appearing, well-nourished, and in no acute distress. HEAD: Normocephalic, atraumatic. EYES: PERRLA and EOMI. ENT: Nares clear, no rhinorrhea or epistaxis. Mucous membranes moist. NECK: Supple. No masses. No JVD CHEST: Clear to auscultation. No respiratory distress. No wheezes rales or rhonchi HEART: Regular rate and rhythm. No murmur heard. Normal peripheral pulses. ABDOMEN: Soft, nontender, nondistended, normal active bowel sounds. EXTREMITIES: Normal range of motion. No edema. SKIN: Warm, dry, no rash. NEURO: No focal deficits. Alert PSYCH: Normal mood and affect. Course Reevaluation(s) Reevaluation #1: Patient resting comfortably results and plan reviewed with family. Patient and family are comfortable inpatient plan. Date: 04/28/21 Time: 23:17 Vital Signs Vital signs: Vital Signs Temperature 36.7 C 04/28/21 20:57 Pulse Rate 78 04/28/21 20:57 Respiratory Rate 17 04/28/21 20:57 Blood Pressure 111/60 04/28/21 20:57 Pulse Oximetry 97 04/28/21 20:57 Temperature 36.7 C 04/28/21 20:57 Pulse Rate 70 04/28/21 23:29 Respiratory Rate 15 04/28/21 23:29 Blood Pressure 128/62 04/28/21 23:29 Pulse Oximetry 100 04/28/21 23:29 MDM - Altered Mental Status MDM Narrative Medical decision making narrative: Patient presents with change in mental status and urinary inconti
--- NOTE | 2021-04-28 23:17 | PM.IMHP ---
H&P: HPI History of Present Illness Date/Time: 04/28/21 23:17 Chief Complaint: Altered mental status Narrative: This is an 85-year-old female with past medical history significant for dementia, recurrent urinary tract infection. Degenerative joint disease, hearing loss. Patient liver is by herself has a caregiver that comes to the house 3 days a week for 3 hours when caregiver was visiting today noticed that the patient was not her usual it was noted that she was incontinent of urine and not making sense daughter was called and patient was brought to the emergency room at the time of my visit patient is pleasantly confused oriented to person only unable to give any history. According to daughter patient has been in her usual did days before this even. Most of the history has been obtained from medical records and daughter who is at bedside according to daughter they have been looking at places for placement in assisted living facility. Preliminary workup was significant for urinalysis with numerous wbc's present Review of Systems Review of Systems: ROS unobtainable: Yes unobtainable due to mental status (Delirium) PMFSH Past Medical History Medical History Basal cell carcinoma Claustrophobia Degenerative joint disease of knee Dysthymia Elevated troponin Fall as cause of accidental injury at home as place of occurrence Hearing loss Right knee DJD Right knee pain UTI (urinary tract infection) Vitamin D deficiency Surgical History Surgical History History of hysterectomy History of laparoscopy History of removal of pigmented skin lesion Right forearm Hx of cholecystectomy Family History Family History Grandparent Family history of cardiovascular disease Cerebrovascular accident Father Family history of malignant neoplasm, Onset Age: 71 Mother Family history of chronic obstructive pulmonary disease, Onset Age: 88 Aneurysm Other Hypertension Social History Social History Social History: The patient lives home alone. She is . She was a homemaker. She is a lifelong nonsmoker. She does not use any marijuana or illicit drugs. She does use any alcohol. She has 2 children which her daughters. She is listed as a full code. Her daughters are the durable power senior trial attorney for healthcare. Smoking status: Never smoker Alcohol intake: never Substance use: never Spiritual care concerns: No Meds Home Medications and Allergies Home Medications Medication Instructions Recorded Confirmed Type ergocalciferol (vitamin D2) 1,250 50,000 unit PO WEEKLY #6 cap 07/17/20 04/29/21 Rx mcg (50,000 unit) capsule Allergies Allergy/AdvReac Type Severity Reaction Status Date / Time aspirin Allergy Unknown Stomach Verified 08/03/20 14:53 cramps iron Allergy Unknown Unknown Verified 08/03/20 14:53 Penicillins Allergy Unknown Blister Verified 08/03/20 14:53 [employer] AdvReac Severe STOMACH Uncoded 08/03/20 14:53 PAIN Vital Signs Vital Signs - 24 hr 04/28/21 20:57 Temperature 98.0 F Pulse Rate 78 Respiratory Rate 17 Blood Pressure 111/60 Pulse Oximetry 97 Exam Narrative: Patient is laying in stretcher. Const: General: comfortable, no acute distress, well developed, alert, awake and other (Delirious) Nutritional Appearance: average body habitus Orientation/consciousness: oriented to person HENMT: Head: normal to inspection, normocephalic and atraumatic Ears: hearing grossly normal bilaterally General nose exam: Normal external nose present Face and sinus: normal facial exam Mouth: Yes Normal oral and palatal mucosa present Eyes: General: appearance normal, both eyes and all related structures Alignment and Position: alignment normal Sclera: scler
[2021-04-28 23:29] VITALS: BP 128/62; PULSE 70; RESP 15; O2SAT 100
[2021-04-28] MEDS: SODIUM CHLORIDE 0.9% IV 1,000 ML 999 ML IV CONT (23:29)
[2021-04-29 00:22] LABS: SARS-CoV-2 RNA PCR Negative
[2021-04-29 02:38] VITALS: BP 169/82; PULSE 68; RESP 16; O2SAT 100
--- NOTE | 2021-04-29 02:45 | ADMGEN ---
This patient, Sally Farias, was admitted to Medical Room 245-. Patient/family oriented to hospital policies and general routines including ID bracelet, bed and alarms, visiting hours, pain management, procedures, bathroom and other care routines, personal items, smoking policy, room service/diet, and visiting hours. Information on how to activate the Rapid Response Team has been discussed. Patient/Family are encouraged to report perceived risks to care and to ask questions if they do not understand what they are told or what they should do.
[2021-04-29 02:50] VITALS: BP 122/55; PULSE 63; RESP 18; TEMP 36.4; O2SAT 100
[2021-04-29 02:55] VITALS: BMI 22.9
[2021-04-29] MEDS: SODIUM CHLORIDE 0.9% IV 1,000 ML 125 ML IV CONT ×2 (03:47→16:56)
--- NOTE | 2021-04-29 15:47 | PM.IMPN ---
Progress Note: A&P Assessment and Plan (1) Altered mental status, unspecified: Onset Date: ~04/29/21 Qualifiers: Altered mental status type: unspecified Qualified Code(s): R41.82 - Altered mental status, unspecified Code(s): R41.82 - Altered mental status, unspecified Status: Acute Assessment and Plan: - Likely secondary to UTI vs Worsening of baseline forgetfulness vs Dementia - Monitor. - Continue to treat infection and monitor encephalopathy. Additional Plan Assessment and plan (1) UTI (urinary tract infection): Qualifiers: Hematuria presence: without hematuria Urinary tract infection type: site unspecified Qualified Code(s): N39.0 - Urinary tract infection, site not specified Code(s): N39.0 - Urinary tract infection, site not specified Status: Acute Assessment and Plan: - Continue Rocephin 1 Gram Daily. - Await Urine Culture results. (2) Leukocytosis (leucocytosis): Qualifiers: Leukocytosis type: unspecified Qualified Code(s): D72.829 - Elevated white blood cell count, unspecified Code(s): D72.829 - Elevated white blood cell count, unspecified Status: Acute Assessment and Plan: - Likely secondary to urinary tract infection and probable dehydration - Daily CBC trending. (3) Right knee DJD: Qualifiers: Osteoarthritis type: primary Qualified Code(s): M17.11 - Unilateral primary osteoarthritis, right knee Code(s): M17.11 - Unilateral primary osteoarthritis, right knee Status: Acute Assessment and Plan: - Uses assistive devices of cane or walker at home. - PT evaluation for discharge needs. Time Spent With Patient Time with patient: 15 - 25 minutes Subjective Date/time seen: 04/29/21 1230 This pt. was assessed at the bedside today in interval assessment. She was sleeping upon my entry into the room and her daughter was at the bedside. The pt. was gently awakened and after giving time to wake up, she was assessed and was noted to be alert and oriented to person and the Month only. She is currently receiving Rocephin for her current dx of UTI with Leukocytosis. She does have a history of being forgetful according to the daughter, but has never been formally diagnosed with Dementia. Her Urine culture is pending. Pt. pulled out her urinary catheter this morning when she was confused. She denies any current pain, dyspnea or any symptoms that she can verbalize. Previous Urine culture results from prior UTI's were reviewed and it is noted that the pt. had a UTI back in 06/2020 that grew out E. coli with pansensitivity. Review of Systems Review of Systems: A 12 point ROS was obtained and is otherwise negative with exception of what is noted in HPI. All systems reviewed & are unremarkable except as noted in HPI and below Exam Const: General: comfortable and no acute distress HENMT: Mouth: Yes moist mucous membranes Neck: Neck: supple and no JVD Lymphatic: lymphadenopathy not noted Resp: Effort & Inspection: normal respiratory effort Auscultation: clear to auscultation bilaterally Cardio: Rate: regular rate Rhythm: regular rhythm GI: GI Palp: Yes Soft to palpation and No Tenderness to palpation present (GI) Auscultation: normal bowel sounds Skin: General skin exam: normal color and no erythema Neuro: General: gait normal Cognition (Neuro): abnormal cognition (A&Ox1-2) Speech: normal speech Motor exam (neuro): 5/5 motor strength present throughout and Normal motor muscle tone present throughout Other: Knows that it is April and also knows her name. Extrem: General: normal to inspection Right upper extremity: normal to inspection Left upper extremity: normal to inspection Right lower extremity: normal to inspection Left lower extremity: normal to inspection Psych: Mental Status: mental status grossly abnormal (Confused) Other: Confused Objective Data Vital Signs Vital Si
[2021-04-29 19:40] VITALS: O2SAT 99
[2021-04-30] MEDS: SODIUM CHLORIDE 0.9% IV 1,000 ML 125 ML IV CONT ×3 (01:44→16:25)
[2021-04-30 04:40] LABS: Basophils Percent Auto 0.4 % (0.2-1.2); Eosinophils Absolute Auto 0.1 K/mm3 (0-0.3); Eosinophils Percent Auto 1.5 % (0-4.4); Hematocrit 33.5 % (37.0-47.0); Hemoglobin 10.5 g/dL (12.0-15.0); Immature Granulocyte Absolute 0.06 K/mm3 (0.00-0.031); Immature Granulocyte Percent A 0.6 % (0-0.5); Lymphocytes Percent Auto 14.7 % (18.3-44.2); Mean Corpuscular HGB Conc 31.3 g/dl (32-36); Mean Corpuscular Hemoglobin 32.4 pg (26-34); Mean Corpuscular Volume 103.4 fl (80-100); Mean Platelet Volume 9.8 fl (7.4-10.4); Monocytes Percent Auto 10.5 % (2.6-8.5); Neutrophils Absolute Auto 6.9 K/mm3 (1.3-6.7); Neutrophils Percent Auto 72.3 % (45.5-73.1); Platelet Count Result 182 k/mm3 (150-375); Red Blood Count 3.24 M/mm3 (4.2-5.4); Red Cell Distribution Width 13.5 % (11.5-14.5); White Blood Count 9.5 K/mm3 (4.5-10.0)
[2021-04-30 05:24] LABS: Anion Gap 3 mmol/L (8-16); Blood Urea Nitrogen 12 mg/dL (7-17); Calcium 7.6 mg/dL (8.4-10.2); Carbon Dioxide 24 mmol/L (22-30); Chloride 111 mmol/L (98-107); Estimated CRCL calculation 30 ml/min; Estimated Glomerular Filt Rate 59; Glucose 86 mg/dL (65-110); Potassium 4.4 mmol/L (3.4-5.0); Sodium 138 mmol/L (137-145)
[2021-04-30 06:00] VITALS: BP 123/47; PULSE 57; RESP 15; TEMP 36.8; O2SAT 100
[2021-04-30] MEDS: ENOXAPARIN 40 MG/0.4 ML SYRINGE SUB-Q (08:24)
--- NOTE | 2021-04-30 09:06 | PM.IMPN ---
Progress Note: A&P Additional Plan Assessment and Plan (1) Altered mental status, unspecified: Onset Date: ~04/29/21 Qualifiers: Altered mental status type: unspecified Qualified Code(s): R41.82 - Altered mental status, unspecified Code(s): R41.82 - Altered mental status, unspecified Status: Acute Assessment and Plan: - Likely secondary to UTI vs Worsening of baseline forgetfulness vs Dementia - Urine cx negative for any acute growth of bacteria. Will discontinue abx. - Level of confusion acutely worsened today. Suspect baseline dementia, and acute exacerbation from being outside of her normal routine/environment. - Monitor. - Continue to monitor encephalopathy. - CT brain ordered based upon acute worsening of mental status and is negative for acute findings, however, is notable for extensive white matter disease that is likely chronic in nature. - Pt. is unable to go home at this time to her normal level of functioning which is independent at home with apartment property manager caregivers. Care Coordination will be contacted to help assist with possible placement. (2) UTI (urinary tract infection): Qualifiers: Hematuria presence: without hematuria Urinary tract infection type: site unspecified Qualified Code(s): N39.0 - Urinary tract infection, site not specified Code(s): N39.0 - Urinary tract infection, site not specified Status: Acute Assessment and Plan: - D/C antibiotics as Urine culture is negative for any growth. - Continue IV Hydration. (3) Leukocytosis (leucocytosis): Qualifiers: Leukocytosis type: unspecified Qualified Code(s): D72.829 - Elevated white blood cell count, unspecified Code(s): D72.829 - Elevated white blood cell count, unspecified Status: Acute Assessment and Plan: - Resolved today with WBC at 9.5. Suspect that the original elevation was instead secondary to dehydration. (3) Right knee DJD: Qualifiers: Osteoarthritis type: primary Qualified Code(s): M17.11 - Unilateral primary osteoarthritis, right knee Code(s): M17.11 - Unilateral primary osteoarthritis, right knee Status: Acute Assessment and Plan: - Uses assistive devices of cane or walker at home. - PT evaluation for discharge needs. Time Spent With Patient Time with patient: 15 - 25 minutes Subjective Date/time seen: 04/30/21 0715 This pt. was examined at the bedside today in interval assessment. She appears to be acutely confused and appears worse today. She has been speaking of events that occurred long ago and is very difficult to redirect. The sitter who sat with her last evening cites that she became very upset with watching television early this morning and has been very impulsive. As this appears to be a change as compared to yesterday, a CT of her head was performed and it was negative for acute findings, however, it was positive for extensive chronic changes. Pt. does not appear to be in any distress. Review of Systems Review of Systems: A 12 point ROS was completed and is otherwise negative with exception of what is noted in HPI. All systems reviewed & are unremarkable except as noted in HPI and below Exam Narrative: Const: General: comfortable and no acute distress HENMT: Mouth: Yes moist mucous membranes Neck: Neck: supple and no JVD Lymphatic: lymphadenopathy not noted Resp: Effort & Inspection: normal respiratory effort Auscultation: clear to auscultation bilaterally Cardio: Rate: regular rate Rhythm: regular rhythm GI: GI Palp: Yes Soft to palpation and No Tenderness to palpation present (GI) Auscultation: normal bowel sounds Skin: General skin exam: normal color and no erythema Neuro: General: gait normal Cognition (Neuro): abnormal cognition (A&O to self only) Speech: normal speech Motor exam (neuro): 5/5 motor strength present throughout and Normal motor muscle tone present throughout Other: Know
[2021-04-30 14:18] VITALS: BP 147/56; PULSE 59; RESP 16; TEMP 36.2; O2SAT 100
[2021-04-30 17:07] VITALS: O2SAT 97
[2021-04-30 22:00] VITALS: BP 151/65; PULSE 66; RESP 21; TEMP 36.7; O2SAT 100
[2021-05-01] MEDS: SODIUM CHLORIDE 0.9% IV 1,000 ML 125 ML IV CONT (01:05)
[2021-05-01 04:57] LABS: Basophils Percent Auto 0.6 % (0.2-1.2); Eosinophils Absolute Auto 0.2 K/mm3 (0-0.3); Eosinophils Percent Auto 2.6 % (0-4.4); Hematocrit 32.5 % (37.0-47.0); Hemoglobin 10.2 g/dL (12.0-15.0); Immature Granulocyte Absolute 0.06 K/mm3 (0.00-0.031); Immature Granulocyte Percent A 0.8 % (0-0.5); Lymphocytes Absolute Auto 1.38 K/mm3 (0.9-3.2); Lymphocytes Percent Auto 19.1 % (18.3-44.2); Mean Corpuscular HGB Conc 31.4 g/dl (32-36); Mean Corpuscular Hemoglobin 32.1 pg (26-34); Mean Corpuscular Volume 102.2 fl (80-100); Mean Platelet Volume 9.6 fl (7.4-10.4); Monocytes Absolute Auto 0.7 K/mm3 (0.1-0.6); Neutrophils Absolute Auto 4.9 K/mm3 (1.3-6.7); Neutrophils Percent Auto 67.9 % (45.5-73.1); Platelet Count Result 174 k/mm3 (150-375); Red Blood Count 3.18 M/mm3 (4.2-5.4); Red Cell Distribution Width 13.4 % (11.5-14.5); White Blood Count 7.2 K/mm3 (4.5-10.0)
[2021-05-01 05:11] LABS: Anion Gap 5 mmol/L (8-16); Blood Urea Nitrogen 8 mg/dL (7-17); Calcium 7.4 mg/dL (8.4-10.2); Carbon Dioxide 20 mmol/L (22-30); Chloride 114 mmol/L (98-107); Estimated CRCL calculation 38 ml/min; Estimated Glomerular Filt Rate > 60; Glucose 79 mg/dL (65-110); Potassium 3.7 mmol/L (3.4-5.0); Sodium 139 mmol/L (137-145)
[2021-05-01 06:00] VITALS: BP 150/59; PULSE 55; RESP 20; TEMP 36.2; O2SAT 98
[2021-05-01] MEDS: ENOXAPARIN 40 MG/0.4 ML SYRINGE SUB-Q (08:26)
--- NOTE | 2021-05-01 09:37 | PM.IMPN ---
Progress Note: A&P Additional Plan Assessment and Plan (1) Altered mental status, unspecified: Onset Date: ~04/29/21 Qualifiers: Altered mental status type: unspecified Qualified Code(s): R41.82 - Altered mental status, unspecified Code(s): R41.82 - Altered mental status, unspecified Status: Acute Assessment and Plan: - Waxing and waning. Today the patient's level of orientation is A&O to person, place and she knows it is April. She does not know the year or the situation. - Urine cx negative for any acute growth of bacteria. ABX were discontinued yesterday. - Continue to monitor encephalopathy. - CT brain ordered based upon acute worsening of mental status and is negative for acute findings, however, is notable for extensive white matter disease that is likely chronic in nature. - Pt. 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 Care Coordination will be contacted to help assist with possible placement. (2) UTI (urinary tract infection): Qualifiers: Hematuria presence: without hematuria Urinary tract infection type: site unspecified Qualified Code(s): N39.0 - Urinary tract infection, site not specified Code(s): N39.0 - Urinary tract infection, site not specified Status: Resolved Assessment and Plan: - D/C antibiotics as Urine culture is negative for any growth. - IVF discontinued today. (3) Leukocytosis (leucocytosis): Qualifiers: Leukocytosis type: unspecified Qualified Code(s): D72.829 - Elevated white blood cell count, unspecified Code(s): D72.829 - Elevated white blood cell count, unspecified Status: Resolved. Assessment and Plan: - Resolved today with WBC at 9.5. Suspect that the original elevation was instead secondary to dehydration. (4) Right knee DJD: Qualifiers: Osteoarthritis type: primary Qualified Code(s): M17.11 - Unilateral primary osteoarthritis, right knee Code(s): M17.11 - Unilateral primary osteoarthritis, right knee Status: Acute Assessment and Plan: - Uses assistive devices of cane or walker at home. - PT evaluation for discharge needs. Time Spent With Patient Time with patient: 15 - 25 minutes Subjective Date/time seen: 05/01/21 0740 This pt. was examined at the bedside in interval assessment. She has no acute complaints and is more oriented today to Person, place and knows it is April. She does not know the year or the situation. There are no new obvious complaints or discomfort. She currently has a posey catheter and she will be having bladder training today in an attempt to have posey discontinued. She is eating and drinking on her own, so we are stopping IVF. Patient's daughter is working along with Care Coordination to get pt. into an assisted living facility or Memory care. Review of Systems Review of Systems: A 12 point ROS was completed and is otherwise negative with exception of what is noted in HPI. All systems reviewed & are unremarkable except as noted in HPI and below All systems reviewed & are unremarkable except as noted in HPI and below Exam Narrative: Const: General: comfortable and no acute distress HENMT: Mouth: Yes moist mucous membranes Neck: Neck: supple and no JVD Lymphatic: lymphadenopathy not noted Resp: Effort & Inspection: normal respiratory effort Auscultation: clear to auscultation bilaterally Cardio: Rate: regular rate Rhythm: regular rhythm GI: GI Palp: Yes Soft to palpation and No Tenderness to palpation present (GI) Auscultation: normal bowel sounds Skin: General skin exam: normal color and no erythema Neuro: General: gait normal Cognition (Neuro): abnormal cognition (A&O to self only) Speech: normal speech Motor exam (neuro): 5/5 motor strength present throughout and Normal motor muscle tone present throughout Other: Knows that it is April and
[2021-05-01 14:00] VITALS: BP 141/55; PULSE 65; RESP 14; TEMP 36.3; O2SAT 100
--- NOTE | 2021-05-01 18:01 | PCCCNOTE ---
[facility] approval for [place] start 05/01 to 05/04; after 05/04 additional clinicals needed [facility]# [id number] residential leasing manager Miky Carson [phone]
[2021-05-01] MEDS: MENTHOL 10% / METHYL SALICYLATE 15% 57 GM TUBE 1 APPLIC TOPICAL (19:37)
[2021-05-01 21:50] VITALS: BP 149/53; PULSE 98; RESP 16; TEMP 36.7; O2SAT 98
[2021-05-02 04:58] LABS: Basophils Percent Auto 0.6 % (0.2-1.2); Eosinophils Absolute Auto 0.2 K/mm3 (0-0.3); Eosinophils Percent Auto 2.4 % (0-4.4); Hematocrit 35.4 % (37.0-47.0); Hemoglobin 11.3 g/dL (12.0-15.0); Immature Granulocyte Absolute 0.04 K/mm3 (0.00-0.031); Immature Granulocyte Percent A 0.6 % (0-0.5); Lymphocytes Absolute Auto 1.43 K/mm3 (0.9-3.2); Lymphocytes Percent Auto 20.2 % (18.3-44.2); Mean Corpuscular HGB Conc 31.9 g/dl (32-36); Mean Corpuscular Hemoglobin 32.3 pg (26-34); Mean Corpuscular Volume 101.1 fl (80-100); Mean Platelet Volume 9.4 fl (7.4-10.4); Monocytes Absolute Auto 0.7 K/mm3 (0.1-0.6); Neutrophils Absolute Auto 4.7 K/mm3 (1.3-6.7); Neutrophils Percent Auto 66.2 % (45.5-73.1); Platelet Count Result 224 k/mm3 (150-375); Red Cell Distribution Width 13.4 % (11.5-14.5); White Blood Count 7.1 K/mm3 (4.5-10.0)
[2021-05-02 05:31] VITALS: BP 156/52; PULSE 52; RESP 16; TEMP 36.4; O2SAT 98
[2021-05-02 08:18] VITALS: BP 151/62; PULSE 75
[2021-05-02 09:29] LABS: EDCOVIDSCREEN Negative (Negative)
--- NOTE | 2021-05-02 10:01 | PM.DS ---
DS: Admitting Diagnosis Discharge Date 05/02/2021 Admitting Diagnosis 1) UTI 2) Leukocytosis 3) Right Knee DJD DS: Discharge Diagnosis Discharge Diagnosis (1) UTI (urinary tract infection): Qualifiers: Hematuria presence: without hematuria Urinary tract infection type: site unspecified Qualified Code(s): N39.0 - Urinary tract infection, site not specified Code(s): N39.0 - Urinary tract infection, site not specified Status: Resolved Assessment and Plan: - Pt. received several days of Rocephin IVPB that was later discontinued as she did not have any growth on her Urine Cx. - No abx necessary for discharge. (2) Altered mental status, unspecified: Onset Date: ~04/29/21 Qualifiers: Altered mental status type: unspecified Qualified Code(s): R41.82 - Altered mental status, unspecified Code(s): R41.82 - Altered mental status, unspecified Status: Acute Assessment and Plan: - Continued, waxes and wanes. (3) Leukocytosis (leucocytosis): Qualifiers: Leukocytosis type: unspecified Qualified Code(s): D72.829 - Elevated white blood cell count, unspecified Code(s): D72.829 - Elevated white blood cell count, unspecified Status: Resolved Assessment and Plan: - No further abnormality of WBC's. (4) Right knee DJD: Qualifiers: Osteoarthritis type: primary Qualified Code(s): M17.11 - Unilateral primary osteoarthritis, right knee Code(s): M17.11 - Unilateral primary osteoarthritis, right knee Status: Chronic Assessment and Plan: - Treat pain as needed. - Chronic in nature (5) Elevated BP without diagnosis of hypertension: Onset Date: ~05/02/21 Code(s): R03.0 - Elevated blood-pressure reading, without diagnosis of hypertension Status: Acute Assessment and Plan: - Pt's BP's consistently running slightly out of range in the high 140s-150s Systolic. - Low dose Norvasc started today, but pt. refusing the medication. Will recommend that she have a cardiac diet on discharge with follow up with PCP. DS: Summary Hospital Course Reason for hospitalization: Altered Mental Status Hospital Course: This pleasantly confused 85 year old female patient with significant PMH of dementia, recurrent UTI, DJD of knee, and hearing loss was admitted to the hospital on 04/28/21 after presenting to the ER with complaints of having increased confusion at home. At baseline, this patient lives by herself and has a caregiver come into the home three times weekly. It was noticed on the day of admission that the pt. was not up and dressed as normal and she seemed increasingly confused, which is out of character for her. Her daughter notes that prior to this day, she was acting her usual normal self. Upon arrival to the ER the pt. was A&O to self only. Workup was essentially unremarkable with exception of what appeared to be the beginnings of a UTI. She was given Rocephin in the ER and then admitted to the hospital for continued assessment and treatment. Her mentation here has waxed and waned and her Urine culture grew out nothing. She had received three days of abx treatment and that was stopped. The pt. is not safe to return home at this point. The patient's daughter has been working to get her into Assisted Living. In the meantime, they are agreeable to her going to [facility]. Those arrangements have been made and the facility has accepted. Also during this admission, her Blood pressure has ran high with SBP in the 140s-150s. She was started on Norvasc, but refuses to take the medication, citing, I don't take any medicine. The recommendation for discharge will be that she continue to have a cardiac diet with low sodium and to be re-evaluated for her BP by her PCP. Pt. had a negative COVID test prior to discharge. Time Spent with Patient Time attestation: Total time spent providing and/or coordinating discharge services: 40 m
== END 2021-05-02 14:00 | DRG 690 ==
LOC: ANHED 23:22 → ANH2MED 23:42
PROVIDERS: Admitting Provider Internal Medicine; Emergency Provider Emergency Medicine; PCP Internal Medicine; Visit Provider Nurse Practitioner Adult Health
DX: N39.0 Urinary tract infection, site not specified (principal); F03.90 Unspecified dementia, unspecified severity, without behavioral disturbance, psychotic disturbance, mood disturbance, and anxiety; R03.0 Elevated blood-pressure reading, without diagnosis of hypertension; Z20.822 Contact with and (suspected) exposure to COVID-19; R41.82 Altered mental status, unspecified; D72.829 Elevated white blood cell count, unspecified; M17.11 Unilateral primary osteoarthritis, right knee; E55.9 Vitamin D deficiency, unspecified; H91.90 Unspecified hearing loss, unspecified ear; F40.240 Claustrophobia; Z28.21 Immunization not carried out because of patient refusal; Z79.899 Other long term (current) drug therapy; Z85.828 Personal history of other malignant neoplasm of skin; Z91.81 History of falling; Z87.440 Personal history of urinary (tract) infections
CPT/HCPCS: 36415; 51701; 70450; 71046; 80048; 80053; 81001; 82948; 85025; 85610; 85730; 87086; 87426; 93005; 96361; 96365; 96372; 97110; 97116; 97161; 97165; 97535; 99285; A9270; C9803; G0378; J0696; J1650; J7030; U0003; U0005

== ENCOUNTER 2021-08-09 10:26 | Emergency (ER) | payer MEDICARE, SELFPAY ==
[2021-08-09] VITALS (9 sets, daily range): BP systolic 122–168; BP diastolic 63–96; PULSE 61–79; RESP 12–27; TEMP 36.2; O2SAT 98–100
--- NOTE | ~2021-08-09 | CT_ITS ---
EXAMINATION: CT brain wo con DATE: 08/09/2021 11:01 INDICATION: Fall. Head injury. TECHNIQUE: Computed tomography (CT) of the head was performed without intravenous contrast. The mA wa s adjusted according to patient size. Iterative reconstruction technique was employed. Exam dose: 60 5.33 mGy-cm total exam DLP. COMPARISON: 04/30/2021 CT brain FINDINGS: There is central and cortical cerebral atrophy and moderate cerebral volume loss. There is nonspecific diminished attenuation of the cerebral white matter, likely due to chronic small vessel ischemic change. There is cerebral atherosclerotic calcification. Minimal right basal ganglia calcification, chronic. No subdural or epidural hematoma. Included paranasal sinuses and mastoid air cells are normally developed and aerated. No fracture or bone destruction of the cranial vault. IMPRESSION: Cerebral atherosclerosis and chronic small vessel ischemic changes of the cerebral white matter No acute intracranial finding Reviewed, dictated and finalized at [facility]. Reviewed, dictated and finalized at [facility].
--- NOTE | ~2021-08-09 | XR_ITS ---
EXAMINATION: XR chest 1V DATE: 08/09/2021 11:21 INDICATION: Fall. TECHNIQUE: A single frontal view of the chest was obtained. COMPARISON: Chest 2 views 04/28/2021 FINDINGS: Skinfolds overlie left hemithorax. No pneumonia, pleural effusion, or pneumothorax. The hea rt size is normal. There are old healed left rib fractures. IMPRESSION: 1. No acute cardiopulmonary disease. Reviewed, dictated and finalized at [facility].
--- NOTE | ~2021-08-09 | CT_ITS ---
EXAMINATION: CT cervical spine wo con DATE: 08/09/2021 11:01 INDICATION: Neck injury. Neck pain. TECHNIQUE: Computed tomography (CT) of the cervical spine was performed without intravenous contrast. Automated exposure control and iterative reconstruction technique were employed. The dose-length pro duct was 127.27 mGy-cm. COMPARISON: CT cervical spine 07/17/2020 FINDINGS: There is 6 degrees dextrocurvature of cervicothoracic spine. There is 2 mm anterolisthesis of C3 on C4. There is kyphosis of cervical spine. There is moderately decreased disc height at C3-C4. There is severely decreased disc height from C4-C5 through C7-T1 with interbody fusion at C6-C7. The re is interbody fusion and facet joint fusion from T1 to T3. The morphology of the vertebral bodies s uggests this finding is developmental. The following disc levels are specifically discussed: C2-C3: There is ankylosis of left uncovertebral joint without hypertrophy. There is ankylosis of the facet joints with mild hypertrophy. There is mild bilateral neural foraminal stenosis. There is no ce ntral canal stenosis. C3-C4: There is mild bilateral uncovertebral joint osteoarthritis. There is severe right and moderate left facet joint osteoarthritis. There is moderate right and mild left neural foraminal stenosis. Th ere is mild central canal stenosis. C4-C5: There is severe bilateral uncovertebral joint osteoarthritis. There is mild right and severe l eft facet joint osteoarthritis. There is mild bilateral neural foraminal stenosis. There is mild cent ral canal stenosis. C5-C6: There is severe bilateral uncovertebral joint osteoarthritis. There is moderate bilateral face t joint osteoarthritis. There is moderate right and mild left neural foraminal stenosis. There is mil d central canal stenosis. C6-C7: There is mild bilateral uncovertebral joint hypertrophy. There is mild right and moderate left facet joint osteoarthritis. There is mild bilateral neural foraminal stenosis. There is mild central canal stenosis. C7-T1: There is severe bilateral uncovertebral joint osteoarthritis. There is severe bilateral facet joint osteoarthritis. There is moderate right and mild left neural foraminal stenosis. There is mild central canal stenosis. IMPRESSION: 1. No fracture. 2. Severe cervical spondylosis. Reviewed, dictated and finalized at location [facility].
--- NOTE | ~2021-08-09 | XR_ITS ---
EXAMINATION: XR hip BI 2V w AP pelvis DATE: 08/09/2021 11:21 INDICATION: Pelvis injury. TECHNIQUE: An anteroposterior view of the pelvis and 2 views of each hip were obtained. COMPARISON: None. FINDINGS: There is lumbar levoscoliosis and severe spondylosis. No fracture. There is moderate right hip osteoarthritis and severe left hip osteoarthritis. IMPRESSION: 1. Moderate right hip osteoarthritis and severe left hip osteoarthritis. Reviewed, dictated and finalized at location B.
--- NOTE | ~2021-08-09 | XR_ITS ---
XR knee LT min 4V DATE: 08/09/2021 13:16 INDICATION: Left knee pain after a fall TECHNIQUE: 4 views including crosstable lateral COMPARISON: None FINDINGS: Osteopenia. Superior pole patellar enthesopathy. There is chondrocalcinosis at the medial and lateral compartments. There is mild periarticular spurri ng and moderate loss of joint space at the medial compartment. No fracture or dislocation or joint effusion. No periosteal reaction or bone destruction. IMPRESSION: Osteopenia Osteoarthritis at the medial compartment Chondrocalcinosis No fracture or dislocation or joint effusion is detected Reviewed, dictated and finalized at location A.
--- NOTE | 2021-08-09 10:36 | ECG_ITS ---
Measurements Intervals [place] Rate: 67 P: 14 MD: 154 QRS: 56 QRSD: 66 T: 49 QT: 388 QTc: 411 Interpretive Statements BASELINE ARTIFACT REDUCES ECG QUALITY SINUS RHYTHM WITH SINUS ARRHYTHMIA OTHERWISE WITHIN NORMAL LIMITS COMPARED TO ECG 04/28/2021 21:16:06 NO SIGNIFICANT DIFFERENCE Electronically Signed On 08-09-2021 16:25:30 CDT by Kane Cr M.D.
[2021-08-09 10:53] LABS: Basophils Absolute Auto 0.1 K/mm3 (0.0-0.1); Basophils Percent Auto 0.6 % (0.2-1.2); Eosinophils Absolute Auto 0.2 K/mm3 (0-0.3); Hematocrit 38.8 % (37.0-47.0); Immature Granulocyte Absolute 0.04 K/mm3 (0.00-0.031); Immature Granulocyte Percent A 0.5 % (0-0.5); Lymphocytes Absolute Auto 1.16 K/mm3 (0.9-3.2); Lymphocytes Percent Auto 13.8 % (18.3-44.2); Mean Corpuscular HGB Conc 30.9 g/dl (32-36); Mean Corpuscular Hemoglobin 29.2 pg (26-34); Mean Corpuscular Volume 94.4 fl (80-100); Mean Platelet Volume 9.2 fl (7.4-10.4); Monocytes Absolute Auto 0.7 K/mm3 (0.1-0.6); Monocytes Percent Auto 8.7 % (2.6-8.5); Neutrophils Absolute Auto 6.2 K/mm3 (1.3-6.7); Neutrophils Percent Auto 74.4 % (45.5-73.1); Platelet Count Result 221 k/mm3 (150-375); Red Blood Count 4.11 M/mm3 (4.2-5.4); Red Cell Distribution Width 12.8 % (11.5-14.5); White Blood Count 8.4 K/mm3 (4.5-10.0)
[2021-08-09 11:09] LABS: Alanine Aminotransferase 9 U/L (6-35); Albumin Level 3.5 g/dL (3.5-5.1); Alkaline Phosphatase 102 U/L (38-126); Anion Gap 6 mmol/L (8-16); Aspartate Amino Transferase 17 U/L (14-36); Bilirubin,Total 0.6 mg/dL (0.2-1.3); Blood Urea Nitrogen 15 mg/dL (7-17); Calcium 8.1 mg/dL (8.4-10.2); Carbon Dioxide 24 mmol/L (22-30); Chloride 105 mmol/L (98-107); Estimated CRCL calculation 39 ml/min; Estimated Glomerular Filt Rate > 60; Glucose 103 mg/dL (65-110); Potassium 4.3 mmol/L (3.4-5.0); Sodium 135 mmol/L (137-145)
--- NOTE | 2021-08-09 11:34 | ED.FALL ---
HPI - Fall General Chief Complaint: Fall Stated Complaint: pain s/p fall out of bed Source: patient, EMS, RN notes reviewed and old records reviewed Mode of arrival: EMS Limitations: dementia History of Present Illness HPI Narrative: This is an 86 year old female who presents for evaluation of an unwitnessed fall. Patient states she was sitting on the edge of the bed when she fell . She reports she hit her head. She denies nausea, vomiting, dizziness, sob, or chest pain. She is complaining about neck pain and hip pain. Related Data Home Medications Medication Instructions Recorded Confirmed calcium 500 mg tablet mg 08/09/21 calcium carbonate 200 mg calcium mg 08/09/21 (500 mg) chewable tablet (Wilber-Gest Antacid) diclofenac sodium 1 % topical gel 2 g topical QID 08/09/21 08/09/21 fosfomycin tromethamine 3 gram packet 08/09/21 oral packet memantine 5 mg tablet 5 mg PO BID 08/09/21 08/09/21 sertraline 50 mg tablet 50 mg PO DAILY 08/09/21 08/09/21 vitamin B complex (B 1 tablet PO DAILY 08/09/21 08/09/21 Complex-Vitamin B12 tablet) Allergies Allergy/AdvReac Type Severity Reaction Status Date / Time aspirin Allergy Unknown Stomach Verified 08/09/21 10:40 cramps iron Allergy Unknown Unknown Verified 08/09/21 10:40 Penicillins Allergy Unknown Blister Verified 08/09/21 10:40 [employer] AdvReac Severe STOMACH Uncoded 08/09/21 10:40 PAIN Review of Systems Review of Systems: All systems reviewed & are unremarkable except as noted in HPI and below Constitutional: Constitutional: Denies chills and Denies fatigue Cardiovascular: Cardiovascular: Denies chest pain Respiratory: Respiratory: Denies cough Gastrointestinal: Gastrointestinal: Denies abdominal pain, Denies bloating, Denies nausea and Denies vomiting Musculoskeletal: Musculoskeletal: Reports back pain and Reports arthralgias Neurologic: Denies focal weakness and Denies numbness PMFSH Past Medical History Medical History Basal cell carcinoma Claustrophobia Degenerative joint disease of knee Dysthymia Elevated troponin Fall as cause of accidental injury at home as place of occurrence Hearing loss Right knee DJD Right knee pain UTI (urinary tract infection) Vitamin D deficiency Surgical History Surgical History History of hysterectomy History of laparoscopy History of removal of pigmented skin lesion Right forearm Hx of cholecystectomy Family History Family History Grandparent Family history of cardiovascular disease Cerebrovascular accident Father Family history of malignant neoplasm, Onset Age: 71 Mother Family history of chronic obstructive pulmonary disease, Onset Age: 88 Aneurysm Other Hypertension Social History Social History Social History: The patient lives home alone. She is . She was a homemaker. She is a lifelong nonsmoker. She does not use any marijuana or illicit drugs. She does use any alcohol. She has 2 children which her daughters. She is listed as a full code. Her daughters are the durable power banking attorney for healthcare. Smoking status: Never smoker Alcohol intake: never Substance use: never Spiritual care concerns: No Exam Const: General: no acute distress and alert Nutritional Appearance: thin Other: oriented to person and place HENMT: Head: normal to inspection Mouth: Yes dry mucous membranes Eyes: Conjunctivae: conjunctivae normal EOM: EOMs intact bilaterally Chest: Chest palpation & inspection: normal inspection of the chest Resp: Effort & Inspection: normal respiratory effort Auscultation: clear to auscultation bilaterally Cardio: Rate: regular rate Rhythm: regular rhythm Heart sounds: no murmurs GI: GI Pa
[2021-08-09] MEDS: SODIUM CHLORIDE 0.9% IV 1,000 ML 999 ML IV CONT (11:53)
[2021-08-09 12:13] LABS: Appearance Urine Clear (Clear); Bilirubin Urine Negative (Negative); Blood Urine Negative (Negative); Color Urine Yellow (Yellow); Glucose Urine UA Negative (Negative); Ketones Urine Negative (Negative); Leukocyte Esterase Ur 1+ LEU/UL (Negative); Nitrate Urine Negative (Negative); Protein Urine Negative (Negative); Urobilinogen Urine 0.2 mg/dL (<2.0)
[2021-08-09 12:24] LABS: Mucus Urine Rare /lpf; RBC Urine 0-2 /hpf (0-2); Squamous Epithelial Cell Urine Moderate /hpf (Few)
[2021-08-09 12:25] LABS: Add Urine Microscopic? YES
--- NOTE | 2021-08-09 13:21 | PC.NURSE ---
Called [facility], they state that she does not normally walk, she states she uses a wheelchair at all times
== END 2021-08-09 14:31 ==
PROVIDERS: Emergency Provider General Practice; PCP Internal Medicine
DX: M16.12 Unilateral primary osteoarthritis, left hip (principal); N39.0 Urinary tract infection, site not specified; S09.90XA Unspecified injury of head, initial encounter; W06.XXXA Fall from bed, initial encounter
CPT/HCPCS: 36415; 51701; 70450; 71045; 72125; 73521; 73564; 80053; 81001; 85025; 87077; 87086; 87186; 93005; 96361; 96365; 99284; J0131; J7030

== ENCOUNTER 2021-08-29 07:01 | Emergency (ER) | payer MEDICARE, SELFPAY ==
--- NOTE | ~2021-08-29 | XR_ITS ---
XR hip BI 2V w AP pelvis DATE: 08/29/2021 07:26 INDICATION: Fall. TECHNIQUE: AP pelvis. AP and lateral views of both hips COMPARISON: 08/09/2021 pelvis and bilateral hips FINDINGS: Osteopenia. Levoscoliosis and multilevel degenerative disc disease of the lumbar spine. The pubic symphysis and sacroiliac joints are intact. No pelvic fracture or bone destruction is detec angeli. Moderate right hip osteoid arthritis and severe left hip osteoarthritis. No fracture or dislocation, avascular necrosis or bone destruction of either hip is evident. IMPRESSION: Moderate right and severe left hip osteoarthritis Osteopenia Levoscoliosis and multilevel degenerative disc disease of the lumbar spine Reviewed, dictated and finalized at location A.
--- NOTE | ~2021-08-29 | CT_ITS ---
EXAMINATION: CT cervical spine wo con DATE: 08/29/2021 07:44 INDICATION: Unwitnessed fall TECHNIQUE: Computed tomography (CT) of the cervical spine was performed without intravenous contrast. Automated exposure control and iterative reconstruction technique were employed. Exam dose: 128.59 mGy-cm total exam DLP. COMPARISON: None FINDINGS: There is reversal cervical curvature. C1 and C2 are normally aligned and the odontoid process is intact. No fracture or dislocation or lock ed facet or prevertebral soft tissue swelling. There is fusion at the C6-7 intervertebral disc spaces. There is moderately severe degenerative disc disease at C2-3, C3-4 and C4-5 and severe degenerative d isc disease at C5-6 with prominent posterior spurring at C4-5 and C5-6. Approximately 1.5 mm anterolisthesis at C3-4. There is fusion of the bilateral C2-3 apophyseal joints and severe degenerative change at the remaini ng apophyseal joints. Uncovertebral joint spurring throughout the cervical spine, most severe at C5-6 IMPRESSION: Reversal cervical curvature; no fracture or dislocation or locked facet 1.5 mm anterolisthesis at C3-4 Moderately severe degenerative disc disease at C2-3, C3-4 and C4-5 Severe degenerative disc disease at C5-6 Fusion at C6-7 intervertebral disc spaces Fusion of the apophyseal joints bilaterally at C2-3; prominent degenerative change at the remaining a pophyseal joints Uncovertebral joint spurring, most severe at C5-6 Reviewed, dictated and finalized at Location A. Reviewed, dictated and finalized at location A. IMPRESSION: Reversal cervical curvature; no fracture or dislocation or locked facet 1.5 mm anterolisthesis at C3-4 Moderately severe degenerative disc disease at C2-3, C3-4 and C4-5 Severe degenerative disc disease at C5-6 Fusion at C6-7 intervertebral disc spaces Fusion of the apophyseal joints bilaterally at C2-3; prominent degenerative janel nge at the remaining apophyseal joints Uncovertebral joint spurring, most severe at C5-6
--- NOTE | ~2021-08-29 | CT_ITS ---
EXAMINATION: CT brain wo con DATE: 08/29/2021 07:43 INDICATION: Unwitnessed fall TECHNIQUE: Computed tomography (CT) of the head was performed without intravenous contrast. The mA wa s adjusted according to patient size. Iterative reconstruction technique was employed. Exam dose: 60 5.33 mGy-cm total exam DLP. COMPARISON: 08/09/2021 CT brain FINDINGS: Intracranial cerebral atherosclerosis. Nonspecific diminished attenuation of the cerebral w gem matter. Central and cortical cerebral and moderate cerebellar atrophy. Minimal right basal gangl ia calcification. No intracranial mass lesion or hemorrhage, midline shift or mass effect or cerebrovascular accident. No subdural or epidural hematoma. Mastoid air cells are normally developed and aerated. Included paranasal sinuses are unremarkable. No fracture or bone destruction of the cranial vault. IMPRESSION: Cerebral atherosclerosis and chronic small vessel ischemic changes of the cerebral white matter Cerebral and cerebellar atrophy No acute intracranial finding Reviewed, dictated and finalized at Location A. Reviewed, dictated and finalized at location A.
[2021-08-29 07:05] VITALS: BP 152/66; PULSE 60; RESP 18; TEMP 36.8; O2SAT 99
--- NOTE | 2021-08-29 07:18 | ED.FALL ---
HPI - Fall General Chief Complaint: Fall Stated Complaint: glf - entire body hurts Time Seen by Provider: 08/29/21 09:47 History of Present Illness HPI Narrative: pt found lying on floor beside bed unwitnessed fall has dementia alert to baseline no c/o anything per ems moved to stretcher no c/o pain then when he asked her she c/o hurting everywhere. no other loc/neuro chganes or issues per staff otherwise pt is DNR Related Data Home Medications Medication Instructions Recorded Confirmed calcium 500 mg tablet mg 08/09/21 calcium carbonate 200 mg calcium mg 08/09/21 (500 mg) chewable tablet (Wilber-Gest Antacid) diclofenac sodium 1 % topical gel 2 g topical QID 08/09/21 08/09/21 fosfomycin tromethamine 3 gram packet 08/09/21 oral packet memantine 5 mg tablet 5 mg PO BID 08/09/21 08/09/21 sertraline 50 mg tablet 50 mg PO DAILY 08/09/21 08/09/21 vitamin B complex (B 1 tablet PO DAILY 08/09/21 08/09/21 Complex-Vitamin B12 tablet) Allergies Allergy/AdvReac Type Severity Reaction Status Date / Time aspirin Allergy Unknown Stomach Verified 08/29/21 07:28 cramps iron Allergy Unknown Unknown Verified 08/29/21 07:28 Penicillins Allergy Unknown Blister Verified 08/29/21 07:28 [employer] AdvReac Severe STOMACH Uncoded 08/29/21 07:28 PAIN Review of Systems Constitutional: Comments: CONSTITUTIONAL: Denies fever, chills, or sweats. EYES: Denies visual changes, redness, or discharge. ENT: Denies rhinorrhea, congestion, sore throat, or otalgia. CARDIOVASCULAR: Denies chest pain, palpitations, or edema. RESPIRATORY: Denies cough or dyspnea. GASTROINTESTINAL: Denies abdominal pain, nausea, vomiting, or diarrhea. GENITOURINARY: Denies dysuria or hematuria. SKIN: Denies rash or itching. MUSCULOSKELETAL: Denies back pain, joint pain, or myalgia. NEUROLOGIC: Denies headache, numbness, or weakness. PSYCHIATRIC: Denies anxiety or depression. [facility] Past Medical History Medical History Basal cell carcinoma Claustrophobia Degenerative joint disease of knee Dysthymia Elevated troponin Fall as cause of accidental injury at home as place of occurrence Hearing loss Right knee DJD Right knee pain UTI (urinary tract infection) Vitamin D deficiency Surgical History Surgical History History of hysterectomy History of laparoscopy History of removal of pigmented skin lesion Right forearm Hx of cholecystectomy Family History Family History Grandparent Family history of cardiovascular disease Cerebrovascular accident Father Family history of malignant neoplasm, Onset Age: 71 Mother Family history of chronic obstructive pulmonary disease, Onset Age: 88 Aneurysm Other Hypertension Social History Social History Social History: The patient lives home alone. She is . She was a homemaker. She is a lifelong nonsmoker. She does not use any marijuana or illicit drugs. She does use any alcohol. She has 2 children which her daughters. She is listed as a full code. Her daughters are the durable power assistant district attorney for healthcare. Smoking status: Never smoker Alcohol intake: never Substance use: never Spiritual care concerns: No Exam Const: Other: APPEARANCE: Well appearing, no pain in distress, well-nourished. Head normocephalic atraumtaic. EYES: PERRLA/EOMI, conjunctivae very clear. NOSE: Normal no drainage EARS:TMS clear Мария Luciano, with good light reflex. THROAT: Pharynx clear, no exudate. NECK: Supple. No adenopathy, no masses. RESPIRATORY: Airway patent, repsirations nonlabored. Clear to auscultation bilaterally, no rales, rhonchi, wheezing. CARDIOVASCULAR: Regular rate and rhythm without murmurs rubs or gallops. ABDOMINAL: Soft, nontender, nondistended, no hepat
[2021-08-29 08:09] VITALS: BP 144/87; PULSE 68; RESP 20; O2SAT 95
--- NOTE | 2021-08-29 08:40 | PC.NURSE ---
C Collar removed per EDP Dr Cristal GUTIERREZ following neg scans.
[2021-08-29 10:24] LABS: Basophils Absolute Auto 0.1 K/mm3 (0.0-0.1); Basophils Percent Auto 0.9 % (0.2-1.2); Eosinophils Absolute Auto 0.3 K/mm3 (0-0.3); Eosinophils Percent Auto 3.3 % (0-4.4); Hematocrit 37.2 % (37.0-47.0); Hemoglobin 11.8 g/dL (12.0-15.0); Immature Granulocyte Absolute 0.04 K/mm3 (0.00-0.031); Immature Granulocyte Percent A 0.4 % (0-0.5); Lymphocytes Percent Auto 19.6 % (18.3-44.2); Mean Corpuscular HGB Conc 31.7 g/dl (32-36); Mean Corpuscular Volume 91.4 fl (80-100); Mean Platelet Volume 9.3 fl (7.4-10.4); Monocytes Absolute Auto 0.9 K/mm3 (0.1-0.6); Monocytes Percent Auto 9.3 % (2.6-8.5); Neutrophils Absolute Auto 6.1 K/mm3 (1.3-6.7); Neutrophils Percent Auto 66.5 % (45.5-73.1); Platelet Count Result 216 k/mm3 (150-375); Red Blood Count 4.07 M/mm3 (4.2-5.4); Red Cell Distribution Width 12.8 % (11.5-14.5); White Blood Count 9.2 K/mm3 (4.5-10.0)
[2021-08-29 10:36] LABS: Alanine Aminotransferase 10 U/L (6-35); Albumin Level 3.3 g/dL (3.5-5.1); Alkaline Phosphatase 97 U/L (38-126); Anion Gap 4 mmol/L (8-16); Aspartate Amino Transferase 20 U/L (14-36); Bilirubin,Total 0.5 mg/dL (0.2-1.3); Blood Urea Nitrogen 17 mg/dL (7-17); Calcium 8.1 mg/dL (8.4-10.2); Carbon Dioxide 27 mmol/L (22-30); Chloride 106 mmol/L (98-107); Estimated CRCL calculation 39 ml/min; Estimated Glomerular Filt Rate > 60; Glucose 89 mg/dL (65-110); Potassium 4.5 mmol/L (3.4-5.0); Sodium 137 mmol/L (137-145)
[2021-08-29 10:50] LABS: Appearance Urine Clear (Clear); Bilirubin Urine Negative (Negative); Blood Urine Negative (Negative); Color Urine Yellow (Yellow); Glucose Urine UA Negative (Negative); Ketones Urine Negative (Negative); Leukocyte Esterase Ur Trace LEU/UL (Negative); Nitrate Urine Negative (Negative); Protein Urine Negative (Negative); Specific Grav Ur 1.015 (1.001-1.035); Urobilinogen Urine 0.2 mg/dL (<2.0)
[2021-08-29 10:53] VITALS: BP 140/94; PULSE 68; RESP 15; O2SAT 99
[2021-08-29 10:55] LABS: Add Urine Microscopic? YES
[2021-08-29 12:03] LABS: Bacteria Urine 4+ /hpf; Mucus Urine Few /lpf; RBC Urine 0-2 /hpf (0-2); Renal Epithelial Cells Urine Rare /hpf (None Seen); Squamous Epithelial Cell Urine Rare /hpf (Few); WBC Urine 0-3 /hpf
== END 2021-08-29 12:45 ==
PROVIDERS: Physician Assistant; Emergency Provider Emergency Medicine; PCP Nurse Practitioner Family
DX: Z04.3 Encounter for examination and observation following other accident (principal); F03.90 Unspecified dementia, unspecified severity, without behavioral disturbance, psychotic disturbance, mood disturbance, and anxiety; M17.11 Unilateral primary osteoarthritis, right knee; E55.9 Vitamin D deficiency, unspecified; Z87.442 Personal history of urinary calculi; Z85.828 Personal history of other malignant neoplasm of skin; M16.0 Bilateral primary osteoarthritis of hip; M51.36 Other intervertebral disc degeneration, lumbar region; M50.31 Other cervical disc degeneration, high cervical region; I67.2 Cerebral atherosclerosis; M85.88 Other specified disorders of bone density and structure, other site; W19.XXXA Unspecified fall, initial encounter
CPT/HCPCS: 36415; 51701; 70450; 72125; 73521; 80053; 81001; 85025; 99284

== ENCOUNTER 2021-10-25 09:20 | Observation (INO) | payer MEDICARE, SELFPAY ==
[2021-10-25] VITALS (7 sets, daily range): BP systolic 116–164; BP diastolic 81–91; PULSE 56–78; RESP 16–22; TEMP 36.7–37.1; O2SAT 96–100; BMI 18.5
--- NOTE | 2021-10-25 10:06 | ED.AMS ---
HPI - Altered Mental Status General Chief Complaint: Altered Mental Status Stated Complaint: increased confusion and jitteriness Time Seen by Provider: 10/25/21 09:46 History of Present Illness HPI narrative: 86-year-old female history of dementia accompanied by her daughter presents the emergency room with increased confusion. Daughter states that patient lives in assisted living memory care, and was told by staff earlier today that her mother was displaying a altered mental status. group home stated that they were concerned the patient might of developed a urinary tract infection. Patient is afebrile, and complaining of lower back pain. However states that patient has a history of chronic back pain. Patient's baseline mental status is A+Ox2 Related Data Home Medications Medication Instructions Recorded Confirmed calcium 500 mg tablet mg 08/09/21 calcium carbonate 200 mg calcium mg 08/09/21 (500 mg) chewable tablet (Wilber-Gest Antacid) diclofenac sodium 1 % topical gel 2 g topical QID 08/09/21 08/09/21 fosfomycin tromethamine 3 gram packet 08/09/21 oral packet memantine 5 mg tablet 5 mg PO BID 08/09/21 08/09/21 sertraline 50 mg tablet 50 mg PO DAILY 08/09/21 08/09/21 vitamin B complex (B 1 tablet PO DAILY 08/09/21 08/09/21 Complex-Vitamin B12 tablet) Allergies Allergy/AdvReac Type Severity Reaction Status Date / Time aspirin Allergy Unknown Stomach Verified 10/25/21 09:21 cramps iron Allergy Unknown Unknown Verified 10/25/21 09:21 Penicillins Allergy Unknown Blister Verified 10/25/21 12:32 Review of Systems Review of Systems: CONSTITUTIONAL: Denies fever, chills, or sweats. EYES: Denies visual changes, redness, or discharge. ENT: Denies rhinorrhea, congestion, sore throat, or otalgia. CARDIOVASCULAR: Denies chest pain, palpitations, or edema. RESPIRATORY: Denies cough or dyspnea. GASTROINTESTINAL: Denies abdominal pain, nausea, vomiting, or diarrhea. GENITOURINARY: Denies dysuria or hematuria. SKIN: Denies rash or itching. MUSCULOSKELETAL: Denies back pain, joint pain, or myalgia. NEUROLOGIC: Denies headache, numbness, dizziness, or weakness. PSYCHIATRIC: Denies anxiety or depression. [facility] Past Medical History Medical History (Updated 10/25/21 @ 13:08 by Tiera Kaur PA-C) Basal cell carcinoma Degenerative joint disease Dementia Depression with anxiety Hearing loss Transient ischemic attack Vitamin D deficiency Surgical History Surgical History (Updated 10/25/21 @ 13:08 by Tiera Kaur PA-C) History of basal cell carcinoma excision Neck and right forearm. History of cholecystectomy History of hysterectomy History of laparoscopy Family History Family History Grandparent Family history of cardiovascular disease Cerebrovascular accident Father Family history of malignant neoplasm, Onset Age: 71 Mother Family history of chronic obstructive pulmonary disease, Onset Age: 88 Aneurysm Other Hypertension Social History Social History Social History: Healthcare power of board catcher: Code status: Smoking status: Never smoker Alcohol intake: never Substance use: never Additional living arrangements comments: Resident of [facility]. with 2 grown daughters. Spiritual care concerns: No Exam Narrative: GENERAL: Well-appearing, well-nourished, no physical limitations, and in no acute distress. HEAD: Normocephalic, atraumatic. EYES: Conjunctivae normal, PERRLA and EOMI. CHEST: Clear to auscultation. No respiratory distress. No wheezes rales or rhonchi. No tenderness. HEART: Regular rate and rhythm. No murmur heard. Normal peripheral pulses. ABDOMEN: Soft, nontender, nondistended, normal active bowel sounds. BACK: No CVA tenderness EXTREMITIES: Normal range of motion. No edema. No clubbing or cyanosis SKIN: Warm, dry,
[2021-10-25 10:17] LABS: Basophils Percent Auto 0.4 % (0.2-1.2); Eosinophils Absolute Auto 0.1 K/mm3 (0-0.3); Eosinophils Percent Auto 1.3 % (0-4.4); Hematocrit 41.8 % (37.0-47.0); Hemoglobin 12.9 g/dL (12.0-15.0); Immature Granulocyte Absolute 0.03 K/mm3 (0.00-0.031); Immature Granulocyte Percent A 0.3 % (0-0.5); Lymphocytes Absolute Auto 2.34 K/mm3 (0.9-3.2); Mean Corpuscular HGB Conc 30.9 g/dl (32-36); Mean Corpuscular Hemoglobin 28.1 pg (26-34); Mean Corpuscular Volume 91.1 fl (80-100); Mean Platelet Volume 9.5 fl (7.4-10.4); Monocytes Absolute Auto 0.8 K/mm3 (0.1-0.6); Monocytes Percent Auto 8.3 % (2.6-8.5); Neutrophils Absolute Auto 6.4 K/mm3 (1.3-6.7); Neutrophils Percent Auto 65.7 % (45.5-73.1); Platelet Count Result 236 k/mm3 (150-375); Red Blood Count 4.59 M/mm3 (4.2-5.4); Red Cell Distribution Width 13.5 % (11.5-14.5); White Blood Count 9.7 K/mm3 (4.5-10.0)
[2021-10-25 10:29] LABS: Alanine Aminotransferase 12 U/L (6-35); Alkaline Phosphatase 118 U/L (38-126); Anion Gap 5 mmol/L (8-16); Aspartate Amino Transferase 20 U/L (14-36); Bilirubin,Total 0.7 mg/dL (0.2-1.3); Blood Urea Nitrogen 15 mg/dL (7-17); Calcium 8.6 mg/dL (8.4-10.2); Carbon Dioxide 24 mmol/L (22-30); Chloride 105 mmol/L (98-107); Estimated CRCL calculation 34 ml/min; Estimated Glomerular Filt Rate > 60; Glucose 87 mg/dL (65-110); Lactic Acid Reflex 3.4 mmol/L (0.7-2.0); Potassium 4.4 mmol/L (3.4-5.0); Sodium 134 mmol/L (137-145)
[2021-10-25 11:05] LABS: Appearance Urine Cloudy (Clear); Bilirubin Urine Negative (Negative); Blood Urine Negative (Negative); Color Urine Yellow (Yellow); Glucose Urine UA Negative (Negative); Ketones Urine Negative (Negative); Leukocyte Esterase Ur Negative LEU/UL (Negative); Nitrate Urine Positive (Negative); Protein Urine Negative (Negative); Urobilinogen Urine 0.2 mg/dL (<2.0)
[2021-10-25 11:10] LABS: Bacteria Urine 3+ /hpf; RBC Urine 0-2 /hpf (0-2); WBC Urine 0-3 /hpf
[2021-10-25 11:11] LABS: Add Urine Microscopic? YES
[2021-10-25] MEDS: SODIUM CHLORIDE 0.9% IV 1,000 ML 999 ML IV CONT (11:20)
[2021-10-25] MEDS: SODIUM CHLORIDE 0.9% IV 1,000 ML 125 ML IV CONT (12:48)
--- NOTE | 2021-10-25 13:00 | PM.IMHP ---
H&P: HPI History of Present Illness Date/Time: 10/25/21 13:00 Chief Complaint: Increased confusion today. Narrative: This is an 86-year-old female with history of TIA, dementia, depression, anxiety, and UTIs who presented to the ED from [facility] accompanied by her daughter for evaluation of increased confusion that began today. History is obtained via a review of her electronic medical records as well as information obtained from her daughter. At baseline she is alert and oriented to self only and she is not a reliable historian. According to the daughter, the patient is more confused today than usual and she has been ?jittery? which is apparently how she has presented previously when she had a urinary tract infection. The patient was afebrile on arrival to the emergency department with stable vital signs. Pertinent labs include a white blood cell count of 9.7, sodium 134, lactic acid 3.4, and CRP less than 0.5. Urinalysis done on a clean-catch specimen was positive for nitrates and 3+ bacteria with 0 to 3 wbc's and negative leukocyte esterase. Due to her increasing confusion and these abnormalities in her UA, she was admitted overnight for presumed UTI. At the time my evaluation she is agitated about having to stay in the bed and she complains of low back and buttocks pain due to the bed. Review of Systems Review of Systems: A review of systems was attempted but unable to be completed as the patient is distracted and perseverates on the fact that she is not being allowed to get out of bed. She does specifically say no to having fever, headache, chest pain, shortness breast, abdominal pain, nausea, vomiting, and dysuria. [facility] Past Medical History Medical History (Updated 10/25/21 @ 16:56 by Tiera Kaur PA-C) Basal cell carcinoma Degenerative joint disease Dementia Depression with anxiety Hearing loss Transient ischemic attack Vitamin D deficiency Surgical History Surgical History (Updated 10/25/21 @ 13:08 by Tiera Kaur PA-C) History of basal cell carcinoma excision Neck and right forearm. History of cholecystectomy History of hysterectomy History of laparoscopy Family History Family History Grandparent Family history of cardiovascular disease Cerebrovascular accident Father Family history of malignant neoplasm, Onset Age: 71 Mother Family history of chronic obstructive pulmonary disease, Onset Age: 88 Aneurysm Other Hypertension Social History Social History (Updated 10/25/21 @ 16:47 by Tiera Kaur PA-C) Social History: Healthcare power of criminal attorney: Nena Giron, daughter. Code status: Do not resuscitate. Smoking status: Never smoker Alcohol intake: never Substance use: never Additional living arrangements comments: Resident of [facility]. with 2 grown daughters. Spiritual care concerns: No Meds Home Medications and Allergies Home Medications Medication Instructions Recorded Confirmed Type diclofenac sodium 1 % topical gel 2 g topical QID PRN Pain 08/09/21 10/25/21 History memantine 5 mg tablet 5 mg PO BID 08/09/21 10/25/21 History sertraline 50 mg tablet 50 mg PO DAILY 08/09/21 10/25/21 History acetaminophen 650 mg tablet 650 mg PO Q6H PRN Pain 10/25/21 10/25/21 History cyanocobalamin (vitamin B-12) 1,000 mcg PO DAILY 10/25/21 10/25/21 History 1,000 mcg tablet ergocalciferol (vitamin D2) 1,250 50,000 unit PO [id number] 10/25/21 10/25/21 History mcg (50,000 unit) capsule (Vitamin D2) mirtazapine 7.5 mg tablet 7.5 mg PO HS 10/25/21 10/25/21 History Allergies Allergy/AdvReac Type Severity Reaction Status Date / Time aspirin Allergy Unknown Stomach Verified 10/25/21 09:21 cramps iron Allergy Unknown Unknown Verified 10/25/21 09:21 Penicillins Allergy Unknown Blister Verified 10/25/21 12:32 Vital Signs Vital Signs - 24 hr 10/25/21 09:22 10/25/21 11:25
[2021-10-25 13:14] LABS: Reflex Lactic Acid Yes or No Add Lactic
[2021-10-25 13:47] LABS: Lactic Acid Reflex 1.2 mmol/L (0.7-2.0)
[2021-10-25 13:49] LABS: CRP < 0.5 mg/dL (<1.0)
[2021-10-25 14:00] LABS: Ammonia < 9 umol/L (9-30)
[2021-10-25 14:54] LABS: Folic Acid 7.6 ng/mL (2.76->20)
[2021-10-25 17:13] LABS: Appearance Urine Clear (Clear); Bilirubin Urine Negative (Negative); Blood Urine 1+ (Negative); Color Urine Yellow (Yellow); Glucose Urine UA Negative (Negative); Ketones Urine Negative (Negative); Leukocyte Esterase Ur Negative LEU/UL (NEGATIVE); Nitrate Urine Positive (Negative); Protein Urine Negative (Negative); Urobilinogen Urine 0.2 mg/dL (<2.0); pH Urine 7.5 (5.0-9.0)
[2021-10-25 17:24] LABS: Bacteria Urine Trace /hpf; Mucus Urine Rare /lpf; Squamous Epithelial Cell Urine Rare /hpf (Few); WBC Urine 0-3 /hpf (0-3)
[2021-10-25 17:27] LABS: Add Urine Microscopic? YES
[2021-10-25] MEDS: MEMANTINE 5 MG TABLET PO (17:40)
[2021-10-25] MEDS: MIRTAZAPINE 7.5 MG TABLET PO (20:39)
[2021-10-26] VITALS (8 sets, daily range): BP systolic 103–138; BP diastolic 44–62; PULSE 66–109; RESP 16–22; TEMP 36.4–36.7; O2SAT 92–100
[2021-10-26 05:02] LABS: Hematocrit 37.7 % (37.0-47.0); Hemoglobin 11.4 g/dL (12.0-15.0); Mean Corpuscular HGB Conc 30.2 g/dl (32-36); Mean Corpuscular Hemoglobin 28.3 pg (26-34); Mean Corpuscular Volume 93.5 fl (80-100); Mean Platelet Volume 9.3 fl (7.4-10.4); Platelet Count Result 191 k/mm3 (150-375); Red Blood Count 4.03 M/mm3 (4.2-5.4); Red Cell Distribution Width 13.4 % (11.5-14.5); White Blood Count 8.7 K/mm3 (4.5-10.0)
[2021-10-26 05:27] LABS: Anion Gap 1 mmol/L (8-16); Blood Urea Nitrogen 13 mg/dL (7-17); Carbon Dioxide 24 mmol/L (22-30); Chloride 107 mmol/L (98-107); Estimated CRCL calculation 29 ml/min; Estimated Glomerular Filt Rate 59; Glucose 98 mg/dL (65-110); Magnesium 2.1 mg/dL (1.6-2.3); Sodium 132 mmol/L (137-145)
[2021-10-26] MEDS: MEMANTINE 5 MG TABLET PO ×2 (08:27→16:39)
[2021-10-26] MEDS: ENOXAPARIN 30 MG/0.3 ML SYRINGE SUB-Q (08:27)
[2021-10-26] MEDS: CYANOCOBALAMIN 1,000 MCG TABLET 1000 MCG PO (08:27)
[2021-10-26] MEDS: SERTRALINE HCL 50 MG TABLET PO (08:27)
--- NOTE | 2021-10-26 09:15 | P.PNIM_ITS ---
Progress Note: A&P Assessment and Plan (1) Abnormal urinalysis: Code(s): R82.90 - Unspecified abnormal findings in urine Status: Acute Assessment and Plan: * Urine is nitrate positive with 3+ bacteria though there were little to no white blood cells * no signs or symptoms at this time to suggest active infection * Continue ceftriaxone * repeat urinalysis on a catheterized specimen * Adjust per urine culture (2) Dementia: Code(s): F03.90 - Unspecified dementia without behavioral disturbance Status: Acute Assessment and Plan: * Seems to be at her baseline, which is A&O x 1 * Get into a chair today * higher risk for developing delirium while in the hospital * minimize nocturnal disturbances * promote regular sleep-wake cycle * Notable urine retention * Continue namenda, mirtazapine, sertraline (3) Hyponatremia: Code(s): E87.1 - Hypo-osmolality and hyponatremia Status: Acute Assessment and Plan: * resolved * NA is 132 * mild hyponatremia * normal saline in the emergency department * Trend labs (4) Depression with anxiety: Code(s): F41.8 - Other specified anxiety disorders Status: Acute Assessment and Plan: * Continue home medications (5) Sepsis: Code(s): A41.9 - Sepsis, unspecified organism Status: Acute Assessment and Plan: * Meets sepsis criteria with tachycardia, tachypnea, and elevated lactic acid * WBC is 8.7 * Blood cultures pending * Urine cultures pending * Lactic acid 3.4 upon arrival, currently 1.2 * Ceftriaxone in the ED, continue for now * Appears to be related to possible UTI or urinary retention * Trend labs * IV hydration in the ED * De-escalate as appropriate (6) Acute urinary retention: Code(s): R33.8 - Other retention of urine Status: Acute Assessment and Plan: * Noted on bladder scan * Urinary catheter inserted * Trend urine output * Voiding trial as indicated Time Spent With Patient Time with patient: Greater than 35 minutes Subjective Date/time seen: 10/26/21914 Interval history: 10/26/21914 Patient seems to be doing well this morning. She stated that she has not been eating as she does not like the food they have been giving her. She also thinks that standard time. She denies any chest pain, shortness of breath, nausea, vomiting, diarrhea, constipation. She did state that her food was really good. And she also organized all her trash into 1 area. Catheter is still in and draining a yellow clear urine. Urine culture and blood cultures are still pending 10/25/21? 13:00 This is an 86-year-old female with history of TIA, dementia, depression, anxiety, and UTIs who presented to the ED from [facility] accompanied by her daughter for evaluation of increased confusion that began today. History is obtained via a review of her electronic medical records as well as information obtained from her daughter. At baseline she is alert and oriented to self only and she is not a reliable historian. According to the daughter, the patient is more confused today than usual and she has been ?jittery? which is apparently how she has presented previously when she had a urinary tract infection. The patient was afebrile on arrival to the emergency department with stable vital signs. Pertinent labs include a white blood cell count of 9.7, sodium 134, lac tic ac
--- NOTE | 2021-10-26 09:15 | PM.IMPN ---
Progress Note: A&P Assessment and Plan (1) Abnormal urinalysis: Code(s): R82.90 - Unspecified abnormal findings in urine Status: Acute Assessment and Plan: Urine is nitrate positive with 3+ bacteria though there were little to no white blood cells no signs or symptoms at this time to suggest active infection Continue ceftriaxone repeat urinalysis on a catheterized specimen Adjust per urine culture (2) Dementia: Code(s): F03.90 - Unspecified dementia without behavioral disturbance Status: Acute Assessment and Plan: Seems to be at her baseline, which is A&O x 1 Get into a chair today higher risk for developing delirium while in the hospital minimize nocturnal disturbances promote regular sleep-wake cycle Notable urine retention Continue namenda, mirtazapine, sertraline (3) Hyponatremia: Code(s): E87.1 - Hypo-osmolality and hyponatremia Status: Acute Assessment and Plan: resolved NA is 132 mild hyponatremia normal saline in the emergency department Trend labs (4) Depression with anxiety: Code(s): F41.8 - Other specified anxiety disorders Status: Acute Assessment and Plan: Continue home medications (5) Sepsis: Code(s): A41.9 - Sepsis, unspecified organism Status: Acute Assessment and Plan: Meets sepsis criteria with tachycardia, tachypnea, and elevated lactic acid WBC is 8.7 Blood cultures pending Urine cultures pending Lactic acid 3.4 upon arrival, currently 1.2 Ceftriaxone in the ED, continue for now Appears to be related to possible UTI or urinary retention Trend labs IV hydration in the ED De-escalate as appropriate (6) Acute urinary retention: Code(s): R33.8 - Other retention of urine Status: Acute Assessment and Plan: Noted on bladder scan Urinary catheter inserted Trend urine output Voiding trial as indicated Time Spent With Patient Time with patient: Greater than 35 minutes Subjective Date/time seen: 10/26/21914 Interval history: 10/26/21914 Patient seems to be doing well this morning. She stated that she has not been eating as she does not like the food they have been giving her. She also thinks that standard time. She denies any chest pain, shortness of breath, nausea, vomiting, diarrhea, constipation. She did state that her food was really good. And she also organized all her trash into 1 area. Catheter is still in and draining a yellow clear urine. Urine culture and blood cultures are still pending 10/25/21? 13:00 This is an 86-year-old female with history of TIA, dementia, depression, anxiety, and UTIs who presented to the ED from [facility] accompanied by her daughter for evaluation of increased confusion that began today. History is obtained via a review of her electronic medical records as well as information obtained from her daughter. At baseline she is alert and oriented to self only and she is not a reliable historian. According to the daughter, the patient is more confused today than usual and she has been ?jittery? which is apparently how she has presented previously when she had a urinary tract infection. The patient was afebrile on arrival to the emergency department with stable vital signs. Pertinent labs include a white blood cell count of 9.7, sodium 134, lactic acid 3.4, and CRP less than 0.5. Urinalysis done on a clean-catch specimen was positive for nitrates and 3+ bacteria with 0 to 3 wbc's and negative leukocyte esterase. Due to her increasing confusion and these abnormalities in her UA, she was admitted overnight for presumed UTI. At the time my evaluation she is agitated about having to stay in the bed and she complains of low back and buttocks pain due to the bed. Review of Systems Review of Systems: All systems reviewed & are unremarkable except as noted in
--- NOTE | 2021-10-26 10:43 | PCDIET ---
Dietitian screen for BMI: 18.1. Patient ate 100% of a regular diet for breakfast today and tolerating diet since admit. Agree with diet orders. No further nutritional needs.
[2021-10-26] MEDS: MIRTAZAPINE 7.5 MG TABLET PO (20:22)
[2021-10-27 03:51] VITALS: BP 120/55; PULSE 66; RESP 17; TEMP 36.9; O2SAT 97
[2021-10-27 05:37] LABS: Basophils Absolute Auto 0.1 K/mm3 (0.0-0.1); Basophils Percent Auto 0.7 % (0.2-1.2); Eosinophils Absolute Auto 0.2 K/mm3 (0-0.3); Eosinophils Percent Auto 2.7 % (0-4.4); Hematocrit 34.5 % (37.0-47.0); Hemoglobin 10.9 g/dL (12.0-15.0); Immature Granulocyte Absolute 0.04 K/mm3 (0.00-0.031); Immature Granulocyte Percent A 0.5 % (0-0.5); Lymphocytes Absolute Auto 1.49 K/mm3 (0.9-3.2); Lymphocytes Percent Auto 19.9 % (18.3-44.2); Mean Corpuscular HGB Conc 31.6 g/dl (32-36); Mean Corpuscular Hemoglobin 28.6 pg (26-34); Mean Corpuscular Volume 90.6 fl (80-100); Mean Platelet Volume 9.8 fl (7.4-10.4); Monocytes Absolute Auto 0.8 K/mm3 (0.1-0.6); Monocytes Percent Auto 11.2 % (2.6-8.5); Neutrophils Absolute Auto 4.9 K/mm3 (1.3-6.7); Platelet Count Result 209 k/mm3 (150-375); Red Blood Count 3.81 M/mm3 (4.2-5.4); Red Cell Distribution Width 13.6 % (11.5-14.5); White Blood Count 7.5 K/mm3 (4.5-10.0)
[2021-10-27 05:48] LABS: Alanine Aminotransferase 10 U/L (6-35); Albumin Level 2.9 g/dL (3.5-5.1); Alkaline Phosphatase 99 U/L (38-126); Anion Gap 9 mmol/L (8-16); Aspartate Amino Transferase 18 U/L (14-36); Bilirubin,Total 0.4 mg/dL (0.2-1.3); Blood Urea Nitrogen 12 mg/dL (7-17); Carbon Dioxide 25 mmol/L (22-30); Chloride 106 mmol/L (98-107); Estimated CRCL calculation 29 ml/min; Estimated Glomerular Filt Rate 59; Glucose 95 mg/dL (65-110); Potassium 3.7 mmol/L (3.4-5.0); Sodium 140 mmol/L (137-145)
[2021-10-27] MEDS: CYANOCOBALAMIN 1,000 MCG TABLET 1000 MCG PO (08:27)
[2021-10-27] MEDS: MEMANTINE 5 MG TABLET PO ×2 (08:27→16:44)
[2021-10-27] MEDS: SERTRALINE HCL 50 MG TABLET PO (08:27)
[2021-10-27] MEDS: ENOXAPARIN 30 MG/0.3 ML SYRINGE SUB-Q (08:27)
[2021-10-27 08:28] VITALS: RESP 18; O2SAT 97
[2021-10-27] MEDS: TAMSULOSIN HCL 0.4 MG CAPSULE PO (08:47)
[2021-10-27 09:03] LABS: Transferrin 136 mg/dL (206-381)
[2021-10-27 09:12] LABS: Iron 39 ug/dL (37-170)
[2021-10-27 09:21] LABS: Percent Iron Saturation 18 % (20-50)
--- NOTE | 2021-10-27 10:30 | P.PNIM_ITS ---
Progress Note: A&P Assessment and Plan (1) Abnormal urinalysis: Code(s): R82.90 - Unspecified abnormal findings in urine Status: Acute Assessment and Plan: * Urine is nitrate positive with 3+ bacteria though there were little to no white blood cells * no signs or symptoms at this time to suggest active infection * Continue ceftriaxone, DC'd due to no growth on culture * repeat urinalysis on a catheterized specimen did not indicate infection * Adjust per urine culture (2) Dementia: Code(s): F03.90 - Unspecified dementia without behavioral disturbance Status: Acute Assessment and Plan: * Seems to be at her baseline, which is A&O x 1 * Get into a chair today * higher risk for developing delirium while in the hospital * minimize nocturnal disturbances * promote regular sleep-wake cycle * Notable urine retention * Continue namenda, mirtazapine, sertraline (3) Hyponatremia: Code(s): E87.1 - Hypo-osmolality and hyponatremia Status: Acute Assessment and Plan: * resolved * NA is 140 * mild hyponatremia * normal saline in the emergency department * Trend labs (4) Depression with anxiety: Code(s): F41.8 - Other specified anxiety disorders Status: Acute Assessment and Plan: * Continue home medications (5) Sepsis: Code(s): A41.9 - Sepsis, unspecified organism Status: Acute Assessment and Plan: * Meets sepsis criteria with tachycardia, tachypnea, and elevated lactic acid * WBC is 7.5 * Blood cultures pending * Urine cultures no growth * Lactic acid 3.4 upon arrival, currently 1.2 * Ceftriaxone in the ED, DC'd at this time * Appears to be related to possible UTI or urinary retention * Trend labs * IV hydration in the ED * De-escalate as appropriate (6) Acute urinary retention: Code(s): R33.8 - Other retention of urine Status: Acute Assessment and Plan: * Noted on bladder scan * Urinary catheter inserted * Trend urine output * Voiding trial probably tomorrow * Start Flomax Time Spent With Patient Time with patient: Greater than 35 minutes Subjective Date/time seen: 10/27/21 1030 Interval history: 10/27/21 1030 Patient is doing better today. She knows that she is at the hospital. She is confused on which one. She knew the answer when choices were given. She also stated at the end that her head is on right. She denies any chest pain, shortness of breath, nausea, vomiting, diarrhea, constipation. She is very hard of hearing so it really is difficult to obtain a review of systems. 10/26/21 0915 Patient seems to be doing well this morning. She stated that she has not been eating as she does not like the food they have been giving her. She also thinks that standard time. She denies any chest pain, shortness of breath, nausea, vomiting, diarrhea, constipation. She did state that her food was really good. And she also organized all her trash into 1 area. Catheter is still in and jamison abarcag a yellow clear urine. Urine culture and blood cultures are still pending 10/25/21? 13:00 This is an 86-year-old female with history of TIA, dementia, depression, anx iety, and UTIs who presented to the ED from [facility] accompanied by her daughter for evaluation of increased confusion that began today. History is obtained via a review of her electronic medical records as well as in
--- NOTE | 2021-10-27 10:30 | PM.IMPN ---
Progress Note: A&P Assessment and Plan (1) Abnormal urinalysis: Code(s): R82.90 - Unspecified abnormal findings in urine Status: Acute Assessment and Plan: Urine is nitrate positive with 3+ bacteria though there were little to no white blood cells no signs or symptoms at this time to suggest active infection Continue ceftriaxone, DC'd due to no growth on culture repeat urinalysis on a catheterized specimen did not indicate infection Adjust per urine culture (2) Dementia: Code(s): F03.90 - Unspecified dementia without behavioral disturbance Status: Acute Assessment and Plan: Seems to be at her baseline, which is A&O x 1 Get into a chair today higher risk for developing delirium while in the hospital minimize nocturnal disturbances promote regular sleep-wake cycle Notable urine retention Continue namenda, mirtazapine, sertraline (3) Hyponatremia: Code(s): E87.1 - Hypo-osmolality and hyponatremia Status: Acute Assessment and Plan: resolved NA is 140 mild hyponatremia normal saline in the emergency department Trend labs (4) Depression with anxiety: Code(s): F41.8 - Other specified anxiety disorders Status: Acute Assessment and Plan: Continue home medications (5) Sepsis: Code(s): A41.9 - Sepsis, unspecified organism Status: Acute Assessment and Plan: Meets sepsis criteria with tachycardia, tachypnea, and elevated lactic acid WBC is 7.5 Blood cultures pending Urine cultures no growth Lactic acid 3.4 upon arrival, currently 1.2 Ceftriaxone in the ED, DC'd at this time Appears to be related to possible UTI or urinary retention Trend labs IV hydration in the ED De-escalate as appropriate (6) Acute urinary retention: Code(s): R33.8 - Other retention of urine Status: Acute Assessment and Plan: Noted on bladder scan Urinary catheter inserted Trend urine output Voiding trial probably tomorrow Start Flomax Time Spent With Patient Time with patient: Greater than 35 minutes Subjective Date/time seen: 10/27/21 1030 Interval history: 10/27/21 103 Patient is doing better today. She knows that she is at the hospital. She is confused on which one. She knew the answer when choices were given. She also stated at the end that her head is on right. She denies any chest pain, shortness of breath, nausea, vomiting, diarrhea, constipation. She is very hard of hearing so it really is difficult to obtain a review of systems. 10/26/21 0915 Patient seems to be doing well this morning. She stated that she has not been eating as she does not like the food they have been giving her. She also thinks that standard time. She denies any chest pain, shortness of breath, nausea, vomiting, diarrhea, constipation. She did state that her food was really good. And she also organized all her trash into 1 area. Catheter is still in and draining a yellow clear urine. Urine culture and blood cultures are still pending 10/25/21? 13:00 This is an 86-year-old female with history of TIA, dementia, depression, anxiety, and UTIs who presented to the ED from [facility] accompanied by her daughter for evaluation of increased confusion that began today. History is obtained via a review of her electronic medical records as well as information obtained from her daughter. At baseline she is alert and oriented to self only and she is not a reliable historian. According to the daughter, the patient is more confused today than usual and she has been ?jittery? which is apparently how she has presented previously when she had a urinary tract infection. The patient was afebrile on arrival to the emergency department with stable vital signs. Pertinent labs include a white blood cell count of 9.7, sodium 134, lactic acid 3.4, and CRP less than 0.5. Urinal
[2021-10-27 10:54] VITALS: BP 118/40; PULSE 76; RESP 12; TEMP 36.9; O2SAT 100
[2021-10-27 14:38] VITALS: BP 103/53; PULSE 83; RESP 20; TEMP 37.4; O2SAT 100
[2021-10-27 18:45] VITALS: BP 122/50; PULSE 74; RESP 24; TEMP 37.1; O2SAT 98
[2021-10-27] MEDS: MIRTAZAPINE 7.5 MG TABLET PO (20:46)
[2021-10-27 20:56] VITALS: BP 118/50; PULSE 70; RESP 14; TEMP 36.4; O2SAT 99
--- NOTE | 2021-10-28 04:09 | PC.NURSE ---
Pt had episodes of hollering out early in the shift. Pt settled down and went to sleep. Pt resting comfortably. Pt was not disturbed overnight per physician communication. Will continue to monitor pt.
[2021-10-28 04:34] LABS: Basophils Percent Auto 0.4 % (0.2-1.2); Eosinophils Absolute Auto 0.2 K/mm3 (0-0.3); Eosinophils Percent Auto 3.1 % (0-4.4); Hematocrit 33.2 % (37.0-47.0); Hemoglobin 10.4 g/dL (12.0-15.0); Immature Granulocyte Absolute 0.03 K/mm3 (0.00-0.031); Immature Granulocyte Percent A 0.4 % (0-0.5); Lymphocytes Absolute Auto 1.79 K/mm3 (0.9-3.2); Lymphocytes Percent Auto 22.9 % (18.3-44.2); Mean Corpuscular HGB Conc 31.3 g/dl (32-36); Mean Corpuscular Hemoglobin 28.2 pg (26-34); Mean Platelet Volume 9.2 fl (7.4-10.4); Monocytes Absolute Auto 0.8 K/mm3 (0.1-0.6); Monocytes Percent Auto 10.4 % (2.6-8.5); Neutrophils Absolute Auto 4.9 K/mm3 (1.3-6.7); Neutrophils Percent Auto 62.8 % (45.5-73.1); Platelet Count Result 199 k/mm3 (150-375); Red Blood Count 3.69 M/mm3 (4.2-5.4); Red Cell Distribution Width 13.5 % (11.5-14.5); White Blood Count 7.8 K/mm3 (4.5-10.0)
[2021-10-28 04:52] LABS: Alanine Aminotransferase 10 U/L (6-35); Albumin Level 2.8 g/dL (3.5-5.1); Alkaline Phosphatase 95 U/L (38-126); Anion Gap 8 mmol/L (8-16); Aspartate Amino Transferase 17 U/L (14-36); Bilirubin,Total 0.3 mg/dL (0.2-1.3); Blood Urea Nitrogen 15 mg/dL (7-17); Carbon Dioxide 23 mmol/L (22-30); Chloride 107 mmol/L (98-107); Estimated CRCL calculation 32 ml/min; Estimated Glomerular Filt Rate > 60; Glucose 96 mg/dL (65-110); Magnesium 2.1 mg/dL (1.6-2.3); Potassium 3.8 mmol/L (3.4-5.0); Sodium 138 mmol/L (137-145)
[2021-10-28 07:19] VITALS: BP 123/54; PULSE 65; RESP 16; TEMP 36.4; O2SAT 100
--- NOTE | 2021-10-28 07:27 | P.DS_ITS ---
DS: Admitting Diagnosis Discharge Date 10/28/2021 Admitting Diagnosis Abnormal UA Dementia Hyponatremia Urinary Retention Elevated lactic Acid Altered Mental Status DS: Discharge Diagnosis Discharge Diagnosis (1) Abnormal urinalysis: Code(s): R82.90 - Unspecified abnormal findings in urine Status: Acute Assessment and Plan: * Urine is nitrate positive with 3+ bacteria though there were little to no white blood cells * no signs or symptoms at this time to suggest active infection * Continue ceftriaxone, DC'd due to no growth on culture * repeat urinalysis on a catheterized specimen did not indicate infection (2) Dementia: Code(s): F03.90 - Unspecified dementia without behavioral disturbance Status: Chronic Assessment and Plan: * Seems to be at her baseline, which is A&O x 1 * Get into a chair today * higher risk for developing delirium while in the hospital * minimize nocturnal disturbances * promote regular sleep-wake cycle * Notable urine retention * Continue namenda, mirtazapine, sertraline (3) Hyponatremia: Code(s): E87.1 - Hypo-osmolality and hyponatremia Status: Resolved Assessment and Plan: * resolved * NA is 138 * mild hyponatremia * normal saline in the emergency department * Trend labs (4) Depression with anxiety: Code(s): F41.8 - Other specified anxiety disorders Status: Chronic Assessment and Plan: * Continue home medications (5) Sepsis: Code(s): A41.9 - Sepsis, unspecified organism Status: Resolved Assessment and Plan: * Meets sepsis criteria with tachycardia, tachypnea, and elevated lactic acid * WBC is 7.5 * Blood cultures resulted no growth. * Urine cultures no growth * Lactic acid 3.4 upon arrival, currently 1.2 * Ceftriaxone in the ED, DC'd at this time * Appears to be related to possible UTI or urinary retention * Trend labs * IV hydration in the ED * De-escalate as appropriate (6) Acute urinary retention: Code(s): R33.8 - Other retention of urine Status: Acute Assessment and Plan: * Noted on bladder scan * Urinary catheter inserted * Trend urine output * Voiding trial today and passed. * Start Flomax DS: Summary Hospital Course Reason for hospitalization: Increased Confusion beyond normal level of confusion Hospital Course: This very pleasant 86 year old female with history of TIA, Dementia, Depression, Anxiety, and multiple UTI's presented to the ER on 10/25/21 accompanied by her daughter who claimed she was more confused than normal. In addition, she had been jittery. At baseline she is alert and oriented to self only, and is not a reliable historian. Significant findings on her ER workup included a Lactic acid of 3.4 with UA positive for nitrates with 3+ Bacteria and 0-3 WBC's. Pt. was started on empiric abx pending urine culture, that ultimately grew out no abnormal findings. During the course of the hospitalization, the patient was found to have negative blood and urine cultures and her lactic acid returned to normal. In addition, she remained afebrile. It was found that she had some urinary retention and had a posey placed and was started on Flomax. The pt's labs have been stable and her posey catheter was removed this morning with the patient able to urinate on her own. She will be discharged on flomax. Status at Discharge
--- NOTE | 2021-10-28 07:27 | PM.DS ---
DS: Admitting Diagnosis Discharge Date 10/28/2021 Admitting Diagnosis Abnormal UA Dementia Hyponatremia Urinary Retention Elevated lactic Acid Altered Mental Status DS: Discharge Diagnosis Discharge Diagnosis (1) Abnormal urinalysis: Code(s): R82.90 - Unspecified abnormal findings in urine Status: Acute Assessment and Plan: Urine is nitrate positive with 3+ bacteria though there were little to no white blood cells no signs or symptoms at this time to suggest active infection Continue ceftriaxone, DC'd due to no growth on culture repeat urinalysis on a catheterized specimen did not indicate infection (2) Dementia: Code(s): F03.90 - Unspecified dementia without behavioral disturbance Status: Chronic Assessment and Plan: Seems to be at her baseline, which is A&O x 1 Get into a chair today higher risk for developing delirium while in the hospital minimize nocturnal disturbances promote regular sleep-wake cycle Notable urine retention Continue namenda, mirtazapine, sertraline (3) Hyponatremia: Code(s): E87.1 - Hypo-osmolality and hyponatremia Status: Resolved Assessment and Plan: resolved NA is 138 mild hyponatremia normal saline in the emergency department Trend labs (4) Depression with anxiety: Code(s): F41.8 - Other specified anxiety disorders Status: Chronic Assessment and Plan: Continue home medications (5) Sepsis: Code(s): A41.9 - Sepsis, unspecified organism Status: Resolved Assessment and Plan: Meets sepsis criteria with tachycardia, tachypnea, and elevated lactic acid WBC is 7.5 Blood cultures resulted no growth. Urine cultures no growth Lactic acid 3.4 upon arrival, currently 1.2 Ceftriaxone in the ED, DC'd at this time Appears to be related to possible UTI or urinary retention Trend labs IV hydration in the ED De-escalate as appropriate (6) Acute urinary retention: Code(s): R33.8 - Other retention of urine Status: Acute Assessment and Plan: Noted on bladder scan Urinary catheter inserted Trend urine output Voiding trial today and passed. Start Flomax DS: Summary Hospital Course Reason for hospitalization: Increased Confusion beyond normal level of confusion Hospital Course: This very pleasant 86 year old female with history of TIA, Dementia, Depression, Anxiety, and multiple UTI's presented to the ER on 10/25/21 accompanied by her daughter who claimed she was more confused than normal. In addition, she had been jittery. At baseline she is alert and oriented to self only, and is not a reliable historian. Significant findings on her ER workup included a Lactic acid of 3.4 with UA positive for nitrates with 3+ Bacteria and 0-3 WBC's. Pt. was started on empiric abx pending urine culture, that ultimately grew out no abnormal findings. During the course of the hospitalization, the patient was found to have negative blood and urine cultures and her lactic acid returned to normal. In addition, she remained afebrile. It was found that she had some urinary retention and had a posey placed and was started on Flomax. The pt's labs have been stable and her posey catheter was removed this morning with the patient able to urinate on her own. She will be discharged on flomax. Status at Discharge Functional status at discharge: uses cane/walker Time Spent with Patient Time attestation: Total time spent providing and/or coordinating discharge services: Time spent: Greater than 30 minutes Exam Const: General: cooperative, healthy appearing, no acute distress, well developed, alert, awake and confusion Nutritional Appearance: well nourished Orientation/consciousness: oriented to person, patient oriented x3 and confusion Limitations: no limitations and altered mental status HENMT: Head: normal to inspectio
[2021-10-28 07:47] VITALS: RESP 16; O2SAT 98
[2021-10-28] MEDS: TAMSULOSIN HCL 0.4 MG CAPSULE PO (09:19)
[2021-10-28] MEDS: CYANOCOBALAMIN 1,000 MCG TABLET 1000 MCG PO (09:19)
[2021-10-28] MEDS: ENOXAPARIN 30 MG/0.3 ML SYRINGE SUB-Q (09:19)
[2021-10-28] MEDS: MEMANTINE 5 MG TABLET PO (09:19)
[2021-10-28] MEDS: SERTRALINE HCL 50 MG TABLET PO (09:19)
[2021-10-28 10:13] VITALS: BP 133/59; PULSE 71; RESP 16; TEMP 36.4; O2SAT 95
[2021-10-28 11:19] LABS: EDCOVIDSCREEN Negative (Negative)
== END 2021-10-28 14:30 ==
LOC: ANHED 11:47 → ANH2MED 12:05
PROVIDERS: Nurse Practitioner; Physician Assistant; Admitting Provider Family Medicine; Emergency Provider Nurse Practitioner Family; PCP Nurse Practitioner Family; Visit Provider Nurse Practitioner Adult Health
DX: A41.9 Sepsis, unspecified organism (principal); R82.90 Unspecified abnormal findings in urine; F03.90 Unspecified dementia, unspecified severity, without behavioral disturbance, psychotic disturbance, mood disturbance, and anxiety; E87.1 Hypo-osmolality and hyponatremia; F41.8 Other specified anxiety disorders; R33.8 Other retention of urine; M54.89 Other dorsalgia; E55.9 Vitamin D deficiency, unspecified; H91.93 Unspecified hearing loss, bilateral; Z20.822 Contact with and (suspected) exposure to COVID-19; Z87.440 Personal history of urinary (tract) infections; Z86.73 Personal history of transient ischemic attack (TIA), and cerebral infarction without residual deficits; Z85.9 Personal history of malignant neoplasm, unspecified; Z79.1 Long term (current) use of non-steroidal anti-inflammatories (NSAID); Z79.899 Other long term (current) drug therapy
CPT/HCPCS: 36415; 80048; 80053; 81001; 82140; 82607; 82728; 82746; 83540; 83550; 83605; 83735; 84443; 84466; 85025; 85027; 86140; 87040; 87086; 87426; 96361; 96365; 96366; 96372; 97161; 99285; A9270; C9803; G0378; J0696; J1650; J7030

== ENCOUNTER 2021-11-06 13:19 | Emergency (ER) | payer MEDICARE, SELFPAY ==
--- NOTE | ~2021-11-06 | XR_ITS ---
EXAMINATION: XR chest 2V Exam Date/Time: 11/06/2021 14:00 CDT HISTORY: Weakness Comparison: 08/09/2021, 04/28/2021, and 03/01/2018. RESULT: Lines, tubes, and devices: None. Lungs and pleura: Subsegmental linear and patchy opacities in the lung bases. Senescent changes. Cardiomediastinal silhouette: Stable. Other: No acute osseous or upper abdominal finding. IMPRESSION: Subsegmental bibasilar atelectasis/consolidation. Reviewed, dictated and finalized at location K.
[2021-11-06 13:23] VITALS: BP 151/78; PULSE 69; RESP 18; TEMP 36.9; O2SAT 98
--- NOTE | 2021-11-06 13:31 | ED.GENADULT ---
HPI - General Adult General Chief complaint: Unspecified Stated complaint: pain all over Time Seen by Provider: 11/06/21 13:27 Source: patient, EMS and RN notes reviewed Mode of arrival: EMS Limitations: dementia History of Present Illness HPI narrative: Patient is 86 years old white female [facility] because of possible general body pain patient is awake and oriented to her name only. History of dementia. Related Data Home Medications Medication Instructions Recorded Confirmed diclofenac sodium 1 % topical gel 2 g topical QID PRN Pain 08/09/21 10/25/21 memantine 5 mg tablet 5 mg PO BID 08/09/21 10/25/21 sertraline 50 mg tablet 50 mg PO DAILY 08/09/21 10/25/21 acetaminophen 650 mg tablet 650 mg PO Q6H PRN Pain 10/25/21 10/25/21 cyanocobalamin (vitamin B-12) 1,000 mcg PO DAILY 10/25/21 10/25/21 1,000 mcg tablet ergocalciferol (vitamin D2) 1,250 50,000 unit PO [id number] 10/25/21 10/25/21 mcg (50,000 unit) capsule (Vitamin D2) mirtazapine 7.5 mg tablet 7.5 mg PO HS 10/25/21 10/25/21 Allergies Allergy/AdvReac Type Severity Reaction Status Date / Time aspirin Allergy Unknown Stomach Verified 11/06/21 13:40 cramps iron Allergy Unknown Unknown Verified 11/06/21 13:40 Penicillins Allergy Unknown Blister Verified 11/06/21 13:40 Review of Systems Review of Systems: All systems reviewed & are unremarkable except as noted in HPI and below PMFSH Past Medical History Medical History Basal cell carcinoma Degenerative joint disease Dementia Depression with anxiety Hearing loss Transient ischemic attack Vitamin D deficiency Surgical History Surgical History History of basal cell carcinoma excision Neck and right forearm. History of cholecystectomy History of hysterectomy History of laparoscopy Family History Family History Grandparent Family history of cardiovascular disease Cerebrovascular accident Father Family history of malignant neoplasm, Onset Age: 71 Mother Family history of chronic obstructive pulmonary disease, Onset Age: 88 Aneurysm Other Hypertension Social History Social History Social History: Healthcare power of civil litigation attorney: Nena Giron, daughter. Code status: Do not resuscitate. Smoking status: Never smoker Alcohol intake: never Substance use: never Additional living arrangements comments: Resident of [facility]. with 2 grown daughters. Spiritual care concerns: No Exam Narrative: General appearance: Well-developed, well-nourished, does not look in pain or distress Skin: Normal color Head: Normocephalic, nontraumatic Eyes: Clear conjunctiva ENT: Oropharynx normal, ears normal, nose normal Neck: Supple, nontender Chest and respiratory: Airway patent, no respiratory distress, no accessory muscle use Heart: Regular rate/rhythm Abdomen: Soft, nontender, no organomegaly, quiet bowel sounds Vascular: Normal peripheral pulses, normal capillary refill. Musculoskeletal: Normal range of motion, nontender back Neurologic: Alert and oriented to her name only Course Course Emergency Course: Patient presents with possible body aches, Work-up today showed no significant finding to explain patient condition. Physical examination did not show any significant findings to explain her condition. Patient is awake, alert, talking nonsense which is her baseline of dementia. Does not look in pain or distress. My diagnosis is symptoms of unknown etiology. Vital Sig
[2021-11-06 13:39] VITALS: PULSE 69
[2021-11-06 13:46] VITALS: BP 137/69; PULSE 73; RESP 15; O2SAT 100
[2021-11-06 14:01] VITALS: BP 139/64; PULSE 74; RESP 12; O2SAT 100
[2021-11-06] MEDS: LORazepam INJ (*CRX) 2 MG/ML VIAL 0.25 MG IV PUSH (14:39)
--- NOTE | 2021-11-06 14:40 | PC.NURSE ---
Pt very agitated, yelling and hitting staff, refusing care. Pt very confuse.
[2021-11-06 15:13] LABS: Basophils Absolute Auto 0.1 K/mm3 (0.0-0.1); Basophils Percent Auto 0.7 % (0.2-1.2); Eosinophils Absolute Auto 0.2 K/mm3 (0-0.3); Eosinophils Percent Auto 1.9 % (0-4.4); Hematocrit 40.1 % (37.0-47.0); Hemoglobin 12.3 g/dL (12.0-15.0); Immature Granulocyte Absolute 0.05 K/mm3 (0.00-0.031); Immature Granulocyte Percent A 0.5 % (0-0.5); Lymphocytes Absolute Auto 2.38 K/mm3 (0.9-3.2); Lymphocytes Percent Auto 22.6 % (18.3-44.2); Mean Corpuscular HGB Conc 30.7 g/dl (32-36); Mean Corpuscular Hemoglobin 28.3 pg (26-34); Mean Corpuscular Volume 92.4 fl (80-100); Mean Platelet Volume 9.2 fl (7.4-10.4); Monocytes Absolute Auto 0.8 K/mm3 (0.1-0.6); Monocytes Percent Auto 7.6 % (2.6-8.5); Neutrophils Percent Auto 66.7 % (45.5-73.1); Platelet Count Result 281 k/mm3 (150-375); Red Blood Count 4.34 M/mm3 (4.2-5.4); Red Cell Distribution Width 13.8 % (11.5-14.5); White Blood Count 10.5 K/mm3 (4.5-10.0)
[2021-11-06 15:22] LABS: Appearance Urine Clear (Clear); Bilirubin Urine Negative (Negative); Blood Urine Negative (Negative); Color Urine Yellow (Yellow); Glucose Urine UA Negative (Negative); Ketones Urine Trace mg/dL (Negative); Leukocyte Esterase Ur Negative LEU/UL (Negative); Nitrate Urine Negative (Negative); Protein Urine Negative (Negative); Specific Grav Ur 1.025 (1.001-1.035); Urobilinogen Urine 0.2 mg/dL (<2.0)
[2021-11-06 15:24] LABS: INR 1.2; Prothrombin Time 14.5 Seconds (11.1-14.7)
[2021-11-06 15:25] LABS: Partial Thromboplastin Time 35.3 SECONDS (22.3-36.8)
[2021-11-06 15:26] LABS: Influenza A QL RT-PCR Negative (Negative); Influenza B QL RT-PCR Negative (Negative); SARS-CoV-2 RNA PCR Negative
[2021-11-06 15:27] LABS: Lactic Acid Reflex 1.1 mmol/L (0.7-2.0)
[2021-11-06 15:28] LABS: Mucus Urine Rare /lpf; RBC Urine 0-2 /hpf (0-2); Squamous Epithelial Cell Urine Few /hpf (Few); WBC Urine 0-3 /hpf
[2021-11-06 15:30] LABS: Add Urine Microscopic? YES
[2021-11-06 15:31] LABS: Alanine Aminotransferase 14 U/L (6-35); Albumin Level 3.9 g/dL (3.5-5.1); Alkaline Phosphatase 124 U/L (38-126); Anion Gap 11 mmol/L (8-16); Aspartate Amino Transferase 21 U/L (14-36); Bilirubin,Total 0.3 mg/dL (0.2-1.3); Blood Urea Nitrogen 16 mg/dL (7-17); CRP < 0.5 mg/dL (<1.0); Carbon Dioxide 24 mmol/L (22-30); Chloride 107 mmol/L (98-107); Estimated CRCL calculation 33 ml/min; Estimated Glomerular Filt Rate 59; Glucose 97 mg/dL (65-110); Potassium 4.2 mmol/L (3.4-5.0); Sodium 142 mmol/L (137-145)
[2021-11-06 15:39] LABS: Troponin I < 0.012 ng/mL (0.000-0.034)
[2021-11-06 15:53] VITALS: BP 142/82; PULSE 80; RESP 16; O2SAT 97
--- NOTE | 2021-11-06 15:59 | PC.NURSE ---
Pt confuse, keeps trying to get up and to get out of bed. Pt placed closer to the nursing station.
[2021-11-06 16:25] VITALS: BP 144/87; PULSE 74; RESP 20; O2SAT 99
--- NOTE | 2021-11-06 17:57 | PC.NURSE ---
Talked with pt's daughter on the phone, undated her on pt conditions and behavior. Pt calm and resting at this time.
== END 2021-11-06 19:59 ==
PROVIDERS: Emergency Provider Emergency Medicine; PCP Nurse Practitioner Family
DX: F03.90 Unspecified dementia, unspecified severity, without behavioral disturbance, psychotic disturbance, mood disturbance, and anxiety (principal); F41.8 Other specified anxiety disorders; E55.9 Vitamin D deficiency, unspecified; Z86.73 Personal history of transient ischemic attack (TIA), and cerebral infarction without residual deficits; Z20.822 Contact with and (suspected) exposure to COVID-19
CPT/HCPCS: 36415; 71046; 80053; 81001; 83605; 84484; 85025; 85610; 85730; 86140; 87040; 87502; 96374; 99284; C9803; J2060; U0003; U0005

== ENCOUNTER 2022-01-11 15:56 | Emergency (ER) | payer MEDICARE, SELFPAY ==
--- NOTE | ~2022-01-11 | CT_ITS ---
EXAMINATION: CT cervical spine wo con DATE: 01/11/2022 17:30 INDICATION: Head injury TECHNIQUE: Computed tomography (CT) of the cervical spine was performed without intravenous contrast. The dose-length product (DLP) was 117.43 mGy-cm. Automated exposure control and iterative reconstruc tion technique were employed. COMPARISON: 08/29/2021 FINDINGS: There are 2 mm of unchanged anterolisthesis of C3 on C4 there is severe loss of interverteb ral disc space height from C4 through C7 T1. There is interbody fusion at C6-7. The odontoid is intac t. There is no fracture. There is multilevel severe facet and uncovertebral joint osteoarthritis. The re is interbody fusion from T1 through T3. The prevertebral soft tissues are normal. IMPRESSION: 1. Severe cervical spondylosis without acute findings or significant interval change. Reviewed, dictated and finalized at location F. D WINDER IMPRESSION: 1. Severe cervical spondylosis without acute findings or significant interval c giovanny.
--- NOTE | ~2022-01-11 | XR_ITS ---
XR hip LT 2V w AP pelvis DATE: 01/11/2022 17:34 INDICATION: Posterior left hip pain after fall today TECHNIQUE: AP pelvis. AP and lateral views of left hip. COMPARISON: 09/15/2021 pelvis and bilateral hip FINDINGS: Diffuse osteopenia. Levoscoliosis and degenerative disc disease of the lumbar spine. The pubic symphysis and sacroiliac joints are intact. No pelvic fracture or bone destruction is evident. There is severe joint space narrowing and very prominent spurring at the left hip consistent with sev ere left hip osteoarthritis. No fracture or dislocation is detected. Mild to moderate right hip osteoarthritis. IMPRESSION: Severe left hip osteoarthritis with: No fracture or dislocation of the left hip or pelvis is detected Reviewed, dictated and finalized at location A. VALUE TESTER
--- NOTE | ~2022-01-11 | XR_ITS ---
EXAMINATION: XR shoulder LT min 2V INDICATION: Left shoulder pain TECHNIQUE: Four views of the left shoulder are submitted. COMPARISON: None FINDINGS: Normal alignment. No fracture. There is advanced osteoarthritis of the glenohumeral joint a nd moderate osteoarthritis of the acromioclavicular joint. Soft tissues are unremarkable. IMPRESSION: 1. Osteoarthritis without acute osseous abnormality. Reviewed, dictated and finalized at location F. GNER
--- NOTE | ~2022-01-11 | CT_ITS ---
EXAMINATION: CT thoracic spine wo con DATE: 01/11/2022 17:31 INDICATION: Head injury, upper back pain TECHNIQUE: Computed tomography (CT) of the thoracic spine was performed without intravenous contrast. The dose-length product (DLP) was 612.07 mGy-cm. Iterative reconstruction was used. COMPARISON: None FINDINGS: There are changes of interbody fusion from T1 through T4. There is no fracture. There is se jon loss of intervertebral disc space height at multiple levels in the thoracic spine. The vertebral body heights are maintained. Small degenerative osteophytes project from the anterior endplates of m ultiple vertebral bodies. There are multiple fused left-sided ribs. IMPRESSION: 1. Severe thoracic spondylosis without acute findings. Reviewed, dictated and finalized at location F. EDWARDS CONSULTANT
--- NOTE | ~2022-01-11 | XR_ITS ---
XR chest 1V DATE: 01/11/2022 17:34 INDICATION: Fall today. Upper back pain. TECHNIQUE: AP chest COMPARISON: 11/06/2021 2 view chest FINDINGS: There is diffuse osteopenia. There are chronic left rib deformities. Bilateral glenohumeral osteoarthritis. Degenerative changes of the thoracic and lumbar spine. Heart size appears within normal range. No pulmonary infiltrate or consolidation, pleural effusion or pulmonary vascular congestion or pneumothorax. Surgical clips, right upper quadrant, consistent with cholecystectomy. IMPRESSION: No active cardiopulmonary disease Reviewed, dictated and finalized at location A. RGLASSER
--- NOTE | ~2022-01-11 | CT_ITS ---
EXAMINATION: CT brain wo con INDICATION: Head injury COMPARISON: 08/29/2021 TECHNIQUE: Standard unenhanced head CT. The dose-length product (DLP) was 605.33 mGy-cm. The mA was a djusted according to patient size. Iterative reconstruction technique was employed. FINDINGS: There is no acute intraparenchymal hemorrhage. No evidence of mass lesion. No evidence of a cute infarction. There is mild periventricular and subcortical hypodensity probably related to small vessel ischemic disease. There is mild prominence of the sulci and ventricles related to cerebral atr ophy. Intracranial calcified cerebral atherosclerosis is noted. There are no extra-axial collections. There is no mass effect or midline shift. The orbits and soft tissues are unremarkable. The visualiz ed sinuses and mastoid air cells are well aerated. IMPRESSION: 1. No acute intracranial abnormality. 2. Age related findings. Reviewed, dictated and finalized at location F. RVISOR INSTRUMENT REPAIR
[2022-01-11 15:58] VITALS: BP 151/72; PULSE 66; RESP 18; TEMP 37.1; O2SAT 100
--- NOTE | 2022-01-11 16:45 | PC.NURSE ---
patient removed cervical collar and threw it at this RN stating your are the dumbest bitch Zully ever seen hostile and swing at this nurse
--- NOTE | 2022-01-11 16:47 | ED.FALL ---
HPI - Fall General Chief Complaint: Fall Stated Complaint: fall head injury Time Seen by Provider: 01/11/22 16:06 Source: patient Mode of arrival: EMS Limitations: dementia History of Present Illness HPI Narrative: Patient is an 86 y/o female who presents the ED via EMS with report of a fall. Patient is a resident of [facility]. Per nursing staff, patient had a witnessed fall this afternoon in the bathroom in which she struck her head against the sink. No LOC. Patient complains of pain to her head, neck, upper back, shoulders, left hip. Patient has a history of dementia. She is very agitated upon my evaluation and will not tell me further what happened. Related Data Home Medications Medication Instructions Recorded Confirmed diclofenac sodium 1 % topical gel 2 g topical QID PRN Pain 08/09/21 10/25/21 memantine 5 mg tablet 5 mg PO BID 08/09/21 10/25/21 sertraline 50 mg tablet 50 mg PO DAILY 08/09/21 10/25/21 acetaminophen 650 mg tablet 650 mg PO Q6H PRN Pain 10/25/21 10/25/21 cyanocobalamin (vitamin B-12) 1,000 mcg PO DAILY 10/25/21 10/25/21 1,000 mcg tablet ergocalciferol (vitamin D2) 1,250 50,000 unit PO [id number] 10/25/21 10/25/21 mcg (50,000 unit) capsule (Vitamin D2) mirtazapine 7.5 mg tablet 7.5 mg PO HS 10/25/21 10/25/21 Allergies Allergy/AdvReac Type Severity Reaction Status Date / Time aspirin Allergy Unknown Stomach Verified 11/06/21 13:40 cramps iron Allergy Unknown Unknown Verified 11/06/21 13:40 Penicillins Allergy Unknown Blister Verified 11/06/21 13:40 Review of Systems Review of Systems: ROS unobtainable: Yes unobtainable due to mental status PMFSH Past Medical History Medical History Basal cell carcinoma Degenerative joint disease Dementia Depression with anxiety Hearing loss Transient ischemic attack Vitamin D deficiency Surgical History Surgical History History of basal cell carcinoma excision Neck and right forearm. History of cholecystectomy History of hysterectomy History of laparoscopy Family History Family History Grandparent Family history of cardiovascular disease Cerebrovascular accident Father Family history of malignant neoplasm, Onset Age: 71 Mother Family history of chronic obstructive pulmonary disease, Onset Age: 88 Aneurysm Other Hypertension Social History Social History Social History: Healthcare power of collections attorney: Nena Giron, daughter. Code status: Do not resuscitate. Smoking status: Never smoker Alcohol intake: never Substance use: never Additional living arrangements comments: Resident of [facility]. with 2 grown daughters. Spiritual care concerns: No Exam Narrative: GENERAL: Elderly, well-nourished, non-toxic, in no acute distress. HEAD: Normocephalic, atraumatic. NECK: Supple. No adenopathy, no masses. Mild lower midline spinal tenderness and bilateral paraspinal muscle tenderness. RESPIRATORY: Airway patent, respirations nonlabored. Clear to auscultation bilaterally, no rales, rhonchi, wheezing. CARDIOVASCULAR: Regular rate and rhythm without murmurs, rubs, or gallops. Peripheral pulses 2+ and equal bilaterally. MUSCULOSKELETAL: Strength/ROM intact without gross deformities. Moves all extremities. No appreciable midline thoracic or lumbar spinal tenderness, though difficult to assess tenderness due to patient's agitation. SKIN: Warm, dry, normal color. No rashes. NEURO: Alert. Speech clear. Confused and slightly agitated. Difficult to direct. Unable to assess orientation. Moving all extremities. No ataxic movements. Cranial nerves II-XII grossly intact. Steady gait. Course Vital Signs Vital signs: Vital Signs Temperature 98.7 F 01/11/22 15:58 Pulse
[2022-01-11] MEDS: LORazepam INJ (*CRX) 2 MG/ML VIAL 0.5 MG IM (17:32)
[2022-01-11 22:00] VITALS: BP 115/62; PULSE 84; RESP 15; O2SAT 97
== END 2022-01-11 23:14 ==
PROVIDERS: Emergency Provider Emergency Medicine; PCP Nurse Practitioner Family
DX: S09.90XA Unspecified injury of head, initial encounter (principal); F03.911 Unspecified dementia, unspecified severity, with agitation; E55.9 Vitamin D deficiency, unspecified; F41.8 Other specified anxiety disorders; Z90.710 Acquired absence of both cervix and uterus; Z66 Do not resuscitate; Z85.828 Personal history of other malignant neoplasm of skin; Z86.73 Personal history of transient ischemic attack (TIA), and cerebral infarction without residual deficits; M47.812 Spondylosis without myelopathy or radiculopathy, cervical region; M47.814 Spondylosis without myelopathy or radiculopathy, thoracic region; M16.12 Unilateral primary osteoarthritis, left hip; M19.012 Primary osteoarthritis, left shoulder; W01.198A Fall on same level from slipping, tripping and stumbling with subsequent striking against other object, initial encounter
CPT/HCPCS: 70450; 71045; 72125; 72128; 73030; 73502; 96372; 99284; J2060

== ENCOUNTER 2022-01-12 14:24 | Emergency (ER) | payer MEDICARE, SELFPAY ==
[2022-01-12] VITALS (7 sets, daily range): BP systolic 107–139; BP diastolic 47–80; PULSE 74–88; RESP 13–20; TEMP 36.8; O2SAT 95–100
--- NOTE | ~2022-01-12 | CT_ITS ---
EXAMINATION: CT brain wo con INDICATION: Head injury COMPARISON: 01/11/2022 TECHNIQUE: Standard unenhanced head CT. The dose-length product (DLP) was 983.67 mGy-cm. The mA was a djusted according to patient size. Iterative reconstruction technique was employed. FINDINGS: Motion artifact degrades the examination. There is no acute intraparenchymal hemorrhage. No evidence of mass lesion. No evidence of acute infarction. There is mild periventricular and subcorti gee hypodensity probably related to small vessel ischemic disease. There is mild prominence of the arora lci and ventricles related to cerebral atrophy. Intracranial calcified cerebral atherosclerosis is no angeli. There are no extra-axial collections. There is no mass effect or midline shift. The orbits and s oft tissues are unremarkable. The visualized sinuses and mastoid air cells are well aerated. IMPRESSION: 1. No acute intracranial abnormality, sensitivity mildly limited by motion artifact. 2. Age related findings. Reviewed, dictated and finalized at location F. TURE MASK ETCHER IMPRESSION: 1. No acute intracranial abnormality, sensitivity mildly limited by motion danny fact. 2. Age related findings.
--- NOTE | ~2022-01-12 | CT_ITS ---
EXAMINATION: CT hip LT wo con DATE: 01/12/2022 17:36 INDICATION: Left hip pain after fall TECHNIQUE: Computed tomography (CT) of the left hip was performed without intravenous contrast. The d ose-length product (DLP) was 111.55 mGy-cm. Automated exposure control and iterative reconstruction t echnique were employed. COMPARISON: None FINDINGS: There is advanced osteoarthritis of the left hip. The bones are osteopenic which limits the sensitivity for fracture however none is seen. There are phleboliths of the pelvis. The soft tissues are unremarkable. Colonic diverticulosis is present without evidence of diverticulitis. IMPRESSION: 1. Advanced osteoarthritis of the left hip without acute osseous abnormality identified, sensitivity slightly limited by osteopenia. If there is persistent high clinical suspicion for occult fracture, c onsider MRI. Reviewed, dictated and finalized at location F. SQUAD AUTOTECH IMPRESSION: 1. Advanced osteoarthritis of the left hip without acute osseous abnormality id entified, sensitivity slightly limited by osteopenia. If there is persistent hi gh clinical suspicion for occult fracture, consider MRI.
--- NOTE | ~2022-01-12 | XR_ITS ---
EXAMINATION: XR pelvis 1-2V INDICATION: Pain after fall TECHNIQUE: AP view the pelvis is obtained. COMPARISON: 01/11/2022 FINDINGS: There is advanced osteoarthritis of the left hip. Bone alignment is normal. There is a ques tionable intertrochanteric lucency of the left femur. Phleboliths are noted in the pelvis. IMPRESSION: 1. Possible intertrochanteric lucency of the left femur could reflect nondisplaced fracture. Further evaluation with CT is recommended. Reviewed, dictated and finalized at location F. TRANSPORTATION TABELER IMPRESSION: 1. Possible intertrochanteric lucency of the left femur could reflect nondispla sanjuana fracture. Further evaluation with CT is recommended.
--- NOTE | ~2022-01-12 | CT_ITS ---
EXAMINATION: CT cervical spine wo con DATE: 01/12/2022 17:15 INDICATION: Head injury TECHNIQUE: Computed tomography (CT) of the cervical spine was performed without intravenous contrast. The dose-length product (DLP) was 142.94 mGy-cm. Automated exposure control and iterative reconstruc tion technique were employed. COMPARISON : 01/11/2022 FINDINGS: Motion artifact slightly limits the examination. There are 2 mm of stable anterolisthesis o f C3 on C4. There is interbody fusion at C6-7. There is severe loss of intervertebral disc space heig ht from C3-4 through C7-T1. The odontoid is intact. There is no fracture. There is multilevel severe facet and uncovertebral joint osteoarthritis. Interbody fusion is again noted from T1 through T4. The prevertebral soft tissues are normal. IMPRESSION: 1. Severe cervical spondylosis without acute findings or significant interval change. Reviewed, dictated and finalized at location F. ETS SALESPERSON IMPRESSION: 1. Severe cervical spondylosis without acute findings or significant interval c giovanny.
--- NOTE | 2022-01-12 14:32 | ECG_ITS ---
Measurements Intervals [place] Rate: 79 P: 7 PA: 155 QRS: 34 QRSD: 74 T: 16 QT: 343 QTc: 393 Interpretive Statements SINUS RHYTHM WITH SINUS ARRHYTHMIA LOW QRS VOLTAGE IN LIMB LEADS BASELINE ARTIFACT- I, II, III, AVR, AVL, AVF BORDERLINE ECG COMPARED TO ECG 08/09/2021 10:46:43 NO SIGNIFICANT CHANGES Electronically Signed On 01-12-2022 15:13:17 PREP COOK by Dameon Gerard D.O.
--- NOTE | 2022-01-12 16:44 | ED.FALL ---
HPI - Fall General Chief Complaint: Fall Stated Complaint: fall Time Seen by Provider: 01/12/22 16:12 History of Present Illness HPI Narrative: Pt had a ground level fall again today at local [place]. Pt has no specific complaints but was sent here again to be evaluated. Pt seen yesterday after a fall and had extensive work up. Related Data Home Medications Medication Instructions Recorded Confirmed diclofenac sodium 1 % topical gel 2 g topical QID PRN Pain 08/09/21 10/25/21 memantine 5 mg tablet 5 mg PO BID 08/09/21 10/25/21 sertraline 50 mg tablet 50 mg PO DAILY 08/09/21 10/25/21 acetaminophen 650 mg tablet 650 mg PO Q6H PRN Pain 10/25/21 10/25/21 cyanocobalamin (vitamin B-12) 1,000 mcg PO DAILY 10/25/21 10/25/21 1,000 mcg tablet ergocalciferol (vitamin D2) 1,250 50,000 unit PO [id number] 10/25/21 10/25/21 mcg (50,000 unit) capsule (Vitamin D2) mirtazapine 7.5 mg tablet 7.5 mg PO HS 10/25/21 10/25/21 Allergies Allergy/AdvReac Type Severity Reaction Status Date / Time aspirin Allergy Unknown Stomach Verified 11/06/21 13:40 cramps iron Allergy Unknown Unknown Verified 11/06/21 13:40 Penicillins Allergy Unknown Blister Verified 11/06/21 13:40 Review of Systems Review of Systems: ROS unobtainable: Yes unobtainable due to mental status PMFSH Past Medical History Medical History Basal cell carcinoma Degenerative joint disease Dementia Depression with anxiety Hearing loss Transient ischemic attack Vitamin D deficiency Surgical History Surgical History History of basal cell carcinoma excision Neck and right forearm. History of cholecystectomy History of hysterectomy History of laparoscopy Family History Family History Grandparent Family history of cardiovascular disease Cerebrovascular accident Father Family history of malignant neoplasm, Onset Age: 71 Mother Family history of chronic obstructive pulmonary disease, Onset Age: 88 Aneurysm Other Hypertension Social History Social History Social History: Healthcare power of state's attorney: Nena Giron, daughter. Code status: Do not resuscitate. Smoking status: Never smoker Alcohol intake: never Substance use: never Additional living arrangements comments: Resident of [facility]. with 2 grown daughters. Spiritual care concerns: No Exam Const: General: no acute distress Other: pt drowsy but awakens when she her legs are moved and tells me to quit moving her and quit touching her. Neck: Neck: normal visual inspection and no lymphadenopathy Resp: Effort & Inspection: normal respiratory effort Auscultation: clear to auscultation bilaterally Cardio: Rate: regular rate Rhythm: regular rhythm GI: Auscultation: normal bowel sounds Skin: General skin exam: normal color Wounds: no wounds Neuro: Other: pt sleeping, pt won't answer questions but awakens to any type of movement and gets angry Extrem: General: normal to inspection and no clubbing, cyanosis or edema Course Vital Signs Vital signs: Vital Signs Temperature 98.2 F 01/12/22 14:28 Pulse Rate 81 01/12/22 14:28 Respiratory Rate 18 01/12/22 14:28 Blood Pressure 138/69 01/12/22 14:28 Pulse Oximetry 100 01/12/22 14:28 Temperature 98.2 F 01/12/22 14:28 Pulse Rate 88 01/12/22 18:58 Respiratory Rate 18 01/12/22 18:58 Blood Pressure 121/63 01/12/22 18:58 Pulse Oximetry 98 01/12/22 18:58 Discharge Plan Discharge Clinical Impression: Fall Patient Disposition: Home, Self-Care Condition: Stable Instructions: Antibiotic Form, Head Injury (ED), Fall Prevention (ED) Prescriptions: No Action acetaminophen 650 mg Tablet 650 mg PO Q6H PRN (Reason: Pain) mirtazap
--- NOTE | 2022-01-12 19:18 | PC.NURSE ---
assumed care of pt. pt in bed resting waiting for transport.
== END 2022-01-12 20:46 ==
PROVIDERS: Emergency Provider Emergency Medicine; PCP Nurse Practitioner Family
DX: Z04.89 Encounter for examination and observation for other specified reasons (principal); W19.XXXA Unspecified fall, initial encounter; F03.90 Unspecified dementia, unspecified severity, without behavioral disturbance, psychotic disturbance, mood disturbance, and anxiety; F41.9 Anxiety disorder, unspecified; F32.9 Major depressive disorder, single episode, unspecified; Z86.73 Personal history of transient ischemic attack (TIA), and cerebral infarction without residual deficits
CPT/HCPCS: 70450; 72125; 72170; 73700; 93005; 99284

== ENCOUNTER 2022-02-25 08:21 | Emergency (ER) | payer MEDICARE, SELFPAY ==
--- NOTE | ~2022-02-25 | XR_ITS ---
Portable chest x-ray Comparison: 01/11/2022 Clinical History: Weakness Findings: Lungs are clear, without focal consolidation or pleural effusion. Cardiomediastinal silho uette is stable. Bones and soft tissues are unremarkable. Impression: Clear lungs. Reviewed, dictated and finalized at location . ROLL MAN Impression: Clear lungs.
--- NOTE | 2022-02-25 08:31 | ECG_ITS ---
Measurements Intervals [place] Rate: 72 P: 95 HI: 158 QRS: 87 QRSD: 62 T: 56 QT: 360 QTc: 396 Interpretive Statements SINUS RHYTHM CONSIDER SEPTAL MYOCARDIAL INFARCTION , OLD [40+ ms Q WAVE IN V1/V2] BORDERLINE ECG COMPARED TO ECG 01/12/2022 14:40:13 NO DIFFERENCE Electronically Signed On 02-25-2022 14:50:16 HIDE SPREADER by Kane Cr M.D.
[2022-02-25 08:35] VITALS: BP 128/58; PULSE 81; RESP 14; TEMP 36.7; O2SAT 100
[2022-02-25 08:41] VITALS: PULSE 75
[2022-02-25 09:04] LABS: Basophils Percent Auto 0.4 % (0.2-1.2); Eosinophils Absolute Auto 0.1 K/mm3 (0-0.3); Eosinophils Percent Auto 1.5 % (0-4.4); Hemoglobin 12.8 g/dL (12.0-15.0); Immature Granulocyte Absolute 0.08 K/mm3 (0.00-0.031); Immature Granulocyte Percent A 1.2 % (0-0.5); Lymphocytes Percent Auto 24.7 % (18.3-44.2); Mean Corpuscular HGB Conc 31.2 g/dl (32-36); Mean Corpuscular Hemoglobin 28.6 pg (26-34); Mean Corpuscular Volume 91.5 fl (80-100); Mean Platelet Volume 9.7 fl (7.4-10.4); Monocytes Absolute Auto 0.8 K/mm3 (0.1-0.6); Monocytes Percent Auto 10.9 % (2.6-8.5); Neutrophils Absolute Auto 4.2 K/mm3 (1.3-6.7); Neutrophils Percent Auto 61.3 % (45.5-73.1); Platelet Count Result 162 k/mm3 (150-375); Red Blood Count 4.48 M/mm3 (4.2-5.4); White Blood Count 6.9 K/mm3 (4.5-10.0)
[2022-02-25 09:07] LABS: Add Urine Microscopic? YES; Appearance Urine Clear (Clear); Bilirubin Urine Negative (Negative); Blood Urine Trace-Intact (Negative); Color Urine Yellow (Yellow); Glucose Urine UA Negative (Negative); Ketones Urine 1+ mg/dL (Negative); Leukocyte Esterase Ur Trace LEU/UL (Negative); Nitrate Urine Positive (Negative); Protein Urine Negative (Negative); Specific Grav Ur 1.025 (1.001-1.035); pH Urine 5.5 (5.0-9.0)
[2022-02-25 09:10] LABS: Bacteria Urine 3+ /hpf; Mucus Urine Few /lpf; RBC Urine 0-2 /hpf (0-2); Squamous Epithelial Cell Urine Rare /hpf (Few); WBC Urine 21-30 /hpf
[2022-02-25 09:17] LABS: Alanine Aminotransferase 12 U/L (6-35); Albumin Level 3.6 g/dL (3.5-5.1); Alkaline Phosphatase 76 U/L (38-126); Anion Gap 5 mmol/L (8-16); Aspartate Amino Transferase 21 U/L (14-36); Bilirubin,Total 0.5 mg/dL (0.2-1.3); Blood Urea Nitrogen 20 mg/dL (7-17); Calcium 8.2 mg/dL (8.4-10.2); Carbon Dioxide 26 mmol/L (22-30); Chloride 104 mmol/L (98-107); Estimated CRCL calculation 33 ml/min; Estimated Glomerular Filt Rate > 60; Glucose 90 mg/dL (65-110); Potassium 4.4 mmol/L (3.4-5.0); Sodium 135 mmol/L (137-145)
[2022-02-25] MEDS: SODIUM CHLORIDE 0.9% IV 1,000 ML 150 ML IV CONT (10:00)
--- NOTE | 2022-02-25 12:00 | ED.WEAKNESS ---
HPI - Weakness General Chief complaint: Weakness Stated complaint: COVID+, lethargic, dehydrated Time Seen by Provider: 02/25/22 08:42 Source: RN notes reviewed Mode of arrival: wheelchair Limitations: dementia History of Present Illness HPI Narrative: 86-year-old with a history of dementia was brought in from memory care unit with complaints of feeling extremely weak, poor oral intake. Patient was diagnosed with COVID approximately 4 days ago. Patient is a poor historian . Related Data Home Medications Medication Instructions Recorded Confirmed diclofenac sodium 1 % topical gel 2 g topical QID PRN Pain 08/09/21 10/25/21 memantine 5 mg tablet 5 mg PO BID 08/09/21 10/25/21 sertraline 50 mg tablet 50 mg PO DAILY 08/09/21 10/25/21 acetaminophen 650 mg tablet 650 mg PO Q6H PRN Pain 10/25/21 10/25/21 cyanocobalamin (vitamin B-12) 1,000 mcg PO DAILY 10/25/21 10/25/21 1,000 mcg tablet ergocalciferol (vitamin D2) 1,250 50,000 unit PO [id number] 10/25/21 10/25/21 mcg (50,000 unit) capsule (Vitamin D2) mirtazapine 7.5 mg tablet 7.5 mg PO HS 10/25/21 10/25/21 Allergies Allergy/AdvReac Type Severity Reaction Status Date / Time aspirin Allergy Unknown Stomach Verified 11/06/21 13:40 cramps iron Allergy Unknown Unknown Verified 11/06/21 13:40 Penicillins Allergy Unknown Blister Verified 11/06/21 13:40 Review of Systems Review of Systems: ROS unobtainable: Yes unobtainable due to mental status PMFSH Past Medical History Medical History Basal cell carcinoma Degenerative joint disease Dementia Depression with anxiety Hearing loss Transient ischemic attack Vitamin D deficiency Surgical History Surgical History History of basal cell carcinoma excision Neck and right forearm. History of cholecystectomy History of hysterectomy History of laparoscopy Family History Family History Grandparent Family history of cardiovascular disease Cerebrovascular accident Father Family history of malignant neoplasm, Onset Age: 71 Mother Family history of chronic obstructive pulmonary disease, Onset Age: 88 Aneurysm Other Hypertension Social History Social History Social History: Healthcare power of group leader semiconductor testing: Nena Giron, daughter. Code status: Do not resuscitate. Smoking status: Never smoker Alcohol intake: never Substance use: never Additional living arrangements comments: Resident of [facility]. with 2 grown daughters. Spiritual care concerns: No Exam Narrative: GENERAL: Thin and frail, and in no acute distress. HEAD: Normocephalic, atraumatic. EYES: PERRLA and EOMI. NECK: Supple. CHEST: Clear to auscultation. No respiratory distress. HEART: Regular rate and rhythm. No murmur heard. Normal peripheral pulses. ABDOMEN: Soft, nontender, nondistended, normal active bowel sounds. EXTREMITIES: Normal range of motion. No edema. SKIN: Warm, dry, no rash. NEURO: No focal deficits. Alert and oriented x3. PSYCH: Normal mood and affect. Course Course Emergency Course: 86-year-old with recent diagnosis of COVID was brought in for marked weakness and poor oral intake her physical exam is unremarkable except for the fact that she has dementia as per her daughter this is her baseline. Her lab work actually looks unremarkable except she has a UTI for which I did give her IV Rocephin. Vital Signs Vital signs: Vital Signs Temperature 36.7 C 02/25/22 08:35 Pulse Rate 81 02/25/22 08:35 Respiratory Rate 14 02/25/22 08:35 Blood Pressure 128/58 L 02/25/22 08:35 Pulse Oximetry 100 02/25/22 08:35 Oxygen Delivery Room Air 02/25/22 08:35 Temperature 36.7 C 02/25/22 08:35 Pulse Rate 75 02/25/22 08:41 Respiratory Rate 14 02/25/22 08:35 Blood Pressure 1
[2022-02-25 13:20] LABS: Valproic Acid 27.1 ug/mL (50-120)
== END 2022-02-25 14:30 ==
PROVIDERS: Emergency Provider Family Medicine; PCP Nurse Practitioner Family
DX: N39.0 Urinary tract infection, site not specified (principal); F03.90 Unspecified dementia, unspecified severity, without behavioral disturbance, psychotic disturbance, mood disturbance, and anxiety; U07.1 COVID-19; F41.8 Other specified anxiety disorders; E55.9 Vitamin D deficiency, unspecified; Z85.828 Personal history of other malignant neoplasm of skin; Z86.73 Personal history of transient ischemic attack (TIA), and cerebral infarction without residual deficits; Z66 Do not resuscitate; R94.31 Abnormal electrocardiogram [ECG] [EKG]
CPT/HCPCS: 36415; 71045; 80053; 80164; 81001; 85025; 87077; 87086; 87186; 93005; 96361; 96365; 96366; 99284; J0696; J7030

== ENCOUNTER 2022-03-04 12:27 | Inpatient (IN) | payer MEDICARE, SELFPAY ==
[2022-03-04] VITALS (12 sets, daily range): BP systolic 110–158; BP diastolic 20–95; PULSE 71–90; RESP 16–19; TEMP 36.1–36.8; O2SAT 98–100; BMI 16.7
--- NOTE | ~2022-03-04 | XR_ITS ---
EXAMINATION: XR chest 1V portable DATE: 03/04/2022 12:54 INDICATION: Altered mental status. TECHNIQUE: A single frontal view of the chest was obtained. COMPARISON: Chest single view 02/25/2022, 01/11/22 FINDINGS: There is no pneumonia, pleural effusion, or pneumothorax. Elbert B lines are noted. Skinfol ds overlie left hemithorax. The heart size is normal. Surgical clips in the right upper quadrant are likely from cholecystectomy. IMPRESSION: 1. Elbert B-lines, which may be mild pulmonary edema or mild chronic lung disease. Reviewed, dictated and finalized at location A. NTION ATTENDANT IMPRESSION: 1. Elbert B-lines, which may be mild pulmonary edema or mild chronic lung disea se.
--- NOTE | ~2022-03-04 | CT_ITS ---
EXAMINATION: CTA brain carotid DATE: 03/04/2022 13:53 INDICATION: Altered mental status. Left facial weakness. TECHNIQUE: Computed tomographic angiography (CTA) of the head was performed without and with 100 mL O mnipaque-350 intravenous contrast. CTA of the neck was performed with intravenous contrast. Automated exposure control and iterative reconstruction technique were employed. The dose-length product was 2 065.47 mGy-cm. Maximum intensity projection and volume rendered 3D-reconstructions were created by kadi bush technologist on a separate workstation. COMPARISON: Head CT 01/12/2022 FINDINGS: HEAD CTA: There is no intracranial hemorrhage, acute infarction, or abnormal intracranial mass lesion . There are scattered areas of low attenuation in the cerebral white matter. The ventricles are mariana l in size. There is mucosal thickening in the paranasal sinuses. Vertebral body heights are normal. T he mastoid air cells are normal. The vertebral arteries are codominant. There is no significant steno sis of basilar artery or the posterior cerebral arteries. The posterior communicating arteries are no rmal. There is no significant stenosis of the intracranial internal carotid arteries or anterior or m iddle cerebral arteries. Anterior communicating artery is normal. There is no aneurysm. NECK CTA: There are no pathologically enlarged lymph nodes. There is no significant stenosis of the v ertebral arteries. There is plaque in the proximal internal carotid arteries. There is 0% stenosis of the proximal right internal carotid artery relative to normal distal artery lumen diameter (NASCET c riteria). There is 0% stenosis of the proximal left internal carotid artery relative to normal distal artery lumen diameter. There is severe cervical spondylosis. There are changes of anterior and poste rior fusion at C2-C3. There is interbody fusion at C6-C7. There is anterior and posterior fusion from T1 to T4. IMPRESSION: 1. Moderate nonspecific cerebral white matter disease, which likely represents chronic small vessel i schemic disease. 2. No aneurysm or significant intracranial internal stenosis. 3. 0% stenosis of the proximal internal carotid arteries relative to normal distal artery lumen diame ters (NASCET criteria). Reviewed, dictated and finalized at location A. S CUT SAWYER IMPRESSION: 1. Moderate nonspecific cerebral white matter disease, which likely represents chronic small vessel ischemic disease. 2. No aneurysm or significant intracranial internal stenosis. 3. 0% stenosis of the proximal internal carotid arteries relative to normal dis mary beth artery lumen diameters (NASCET criteria).
--- NOTE | ~2022-03-04 | CT_ITS ---
EXAMINATION: CT abdomen pelvis wo con DATE: 03/05/2022 17:49 INDICATION: abdominal pain, malnutrition, dehydration TECHNIQUE: Computed tomography (CT) of the abdomen and pelvis was performed without intravenous contr ast. Automated exposure control and iterative reconstruction technique were employed. The dose-length product was 384.76 mGy-cm. COMPARISON: CT pelvis 01/12/2022. FINDINGS: Exam is severely limited by respiratory and bowel motion and beam hardening from arm position. Lower thorax: Senescent change. Bibasilar scar/atelectasis. Hiatal hernia. Liver: Normal. Biliary/Gallbladder: Gallbladder is normal. No bile duct dilation. Pancreas: No mass or duct dilation. Spleen: Normal. Adrenals:No mass. Kidneys: No mass, stone, or hydronephrosis. GI tract: No small or large bowel dilation. Appendix not visualized Diverticulosis without diverticul itis. Mesentery/Peritoneum: No ascites, mass, or free air. Retroperitoneum: No mass. Pelvis: Distended urinary bladder with wall thickening and trabeculation. Uterus not visualized. Soft Tissues: Mild body wall edema. Bones: No acute osseous finding. IMPRESSION: Limited examination as detailed above. Distended urinary bladder with wall thickening, may reflect cy stitis and/or urinary retention. Otherwise no acute abdominal pelvic process detected. Reviewed, dictated and finalized at location K. ENGINEER IMPRESSION: Limited examination as detailed above. Distended urinary bladder with wall thic kening, may reflect cystitis and/or urinary retention. Otherwise no acute abdom inal pelvic process detected.
--- NOTE | 2022-03-04 12:38 | ED.AMS ---
HPI - Altered Mental Status General Chief Complaint: Altered Mental Status Stated Complaint: facial droop, lethargic x 2 weeks, uti Time Seen by Provider: 03/04/22 12:37 History of Present Illness HPI narrative: Patient is an 86-year-old female with a history of dementia, depression presenting with altered mental status. Patient is coming from a nursing facility and has been noted to be more lethargic than normal. Today there is concerned that she might have had a left-sided facial droop. She is reportedly being treated for a UTI currently. On arrival, the patient is responsive to painful stimuli but unable to provide further history. Moving all extremities spontaneously. Related Data Home Medications Medication Instructions Recorded Confirmed diclofenac sodium 1 % topical gel 2 g topical QID PRN Pain 08/09/21 03/04/22 memantine 5 mg tablet 10 mg PO BID 08/09/21 03/04/22 sertraline 50 mg tablet 100 mg PO DAILY 08/09/21 03/04/22 acetaminophen 650 mg tablet 650 mg PO Q6H PRN Pain 10/25/21 03/04/22 cyanocobalamin (vitamin B-12) 1,000 mcg PO DAILY 10/25/21 03/04/22 1,000 mcg tablet ergocalciferol (vitamin D2) 1,250 50,000 unit PO [id number] 10/25/21 03/04/22 mcg (50,000 unit) capsule (Vitamin D2) mirtazapine 7.5 mg tablet 7.5 mg PO HS 10/25/21 03/04/22 Allergies Allergy/AdvReac Type Severity Reaction Status Date / Time aspirin Allergy Unknown Stomach Verified 11/06/21 13:40 cramps iron Allergy Unknown Unknown Verified 11/06/21 13:40 Penicillins Allergy Unknown Blister Verified 11/06/21 13:40 Review of Systems Review of Systems: All systems reviewed & are unremarkable except as noted in HPI and below PMFSH Past Medical History Medical History (Updated 03/05/22 @ 13:25 by Kolby Hall MD) Basal cell carcinoma Degenerative joint disease Dementia Depression with anxiety Hearing loss Transient ischemic attack Vitamin D deficiency Surgical History Surgical History (Updated 03/04/22 @ 17:18 by Judi Olivia NP) History of basal cell carcinoma excision Neck and right forearm. 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 She resides at a [facility] power of litigation attorney associate: Nena Giron, daughter. She has 2 children. Code status: Do not resuscitate. Smoking status: Unknown if ever smoked Alcohol intake: never Substance use: never Additional living arrangements comments: Resident of [facility]. with 2 grown daughters. Spiritual care concerns: No Exam Narrative: GENERAL: Elderly female lying in bed, grimaces to painful stimuli, protecting airway HEAD: Normocephalic, atraumatic. EYES: PERRLA ENT: Nares clear, no rhinorrhea or epistaxis. Mucous membranes dry NECK: Supple. CHEST: Clear to auscultation. No respiratory distress. HEART: Regular rate and rhythm. No murmur heard. Normal peripheral pulses. ABDOMEN: Soft, nontender, nondistended, normal active bowel sounds. EXTREMITIES: Normal range of motion. No edema. SKIN: Warm, dry, no rash. NEURO: Responsive only to painful stimuli, withdraws all extremities, unable to participate in full neuro exam Course Vital Signs Vital signs: Vital Signs Temperature 98.3 F 03/04/22 12:45 Pulse Rate 90 03/04/22 12:45 Respiratory Rate 16 03/04/22 12:45 Blood Pressure 158/95 H 03/04/22 12:45 Pulse Oximetry 98 03/04/22
--- NOTE | 2022-03-04 12:43 | ECG_ITS ---
Measurements Intervals [place] Rate: 99 P: 50 DC: 217 QRS: 84 QRSD: 60 T: 46 QT: 316 QTc: 406 Interpretive Statements SINUS RHYTHM ATRIAL AND VENTRICULAR PREMATURE COMPLEXES CANNOT RULE OUT SEPTAL INFARCT, AGE INDETERMINATE BORDERLINE ST-T WAVE ABNORMALITY- DIFFUSE LEADS BASELINE ARTIFACT- I, II, III, AVR, AVL, AVF, V1-V6 ABNORMAL ECG COMPARED TO ECG 02/25/2022 08:41:48 NO SIGNIFICANT CHANGES Electronically Signed On 03-04-2022 16:04:55 ASSISTANT PROFESSOR OF PHYSICS by Dameon Gerard D.O.
[2022-03-04 13:10] LABS: Basophils Percent Auto 0.6 % (0.2-1.2); Eosinophils Absolute Auto 0.1 K/mm3 (0-0.3); Hematocrit 34.7 % (37.0-47.0); Immature Granulocyte Absolute 0.05 K/mm3 (0.00-0.031); Immature Granulocyte Percent A 0.8 % (0-0.5); Lymphocytes Absolute Auto 1.61 K/mm3 (0.9-3.2); Lymphocytes Percent Auto 24.2 % (18.3-44.2); Mean Corpuscular HGB Conc 31.7 g/dl (32-36); Mean Corpuscular Volume 88.3 fl (80-100); Mean Platelet Volume 9.2 fl (7.4-10.4); Monocytes Absolute Auto 0.8 K/mm3 (0.1-0.6); Monocytes Percent Auto 11.3 % (2.6-8.5); Neutrophils Absolute Auto 4.1 K/mm3 (1.3-6.7); Neutrophils Percent Auto 61.1 % (45.5-73.1); Platelet Count Result 251 k/mm3 (150-375); Red Blood Count 3.93 M/mm3 (4.2-5.4); Red Cell Distribution Width 12.8 % (11.5-14.5); White Blood Count 6.6 K/mm3 (4.5-10.0)
[2022-03-04 13:11] LABS: Add Urine Microscopic? YES; Appearance Urine Slightly Cloudy (Clear); Bilirubin Urine Negative (Negative); Blood Urine Negative (Negative); Color Urine Yellow (Yellow); Glucose Urine UA Negative (Negative); Ketones Urine Trace mg/dL (Negative); Leukocyte Esterase Ur Trace LEU/UL (Negative); Nitrate Urine Negative (Negative); Protein Urine Negative (Negative); Specific Grav Ur 1.025 (1.001-1.035); Urobilinogen Urine 0.2 mg/dL (<2.0)
[2022-03-04 13:18] LABS: Mucus Urine Heavy /lpf; Squamous Epithelial Cell Urine Occasional /hpf (Few); WBC Urine 31-50 /hpf
[2022-03-04 13:29] LABS: Alanine Aminotransferase 11 U/L (6-35); Albumin Level 3.1 g/dL (3.5-5.1); Alkaline Phosphatase 76 U/L (38-126); Anion Gap 4 mmol/L (8-16); Aspartate Amino Transferase 19 U/L (14-36); Bilirubin,Total 0.4 mg/dL (0.2-1.3); Blood Urea Nitrogen 22 mg/dL (7-17); Carbon Dioxide 29 mmol/L (22-30); Chloride 107 mmol/L (98-107); Estimated CRCL calculation 37 ml/min; Estimated Glomerular Filt Rate > 60; Glucose 91 mg/dL (65-110); Lactic Acid Reflex 0.9 mmol/L (0.7-2.0); Potassium 3.8 mmol/L (3.4-5.0); Sodium 140 mmol/L (137-145)
[2022-03-04 13:30] LABS: INR 1.2
[2022-03-04 13:31] LABS: Partial Thromboplastin Time 35.3 SECONDS (22.3-36.8)
[2022-03-04 13:41] LABS: Troponin I < 0.012 ng/mL (0.000-0.034)
[2022-03-04 13:50] LABS: Influenza A QL RT-PCR Negative (Negative); Influenza B QL RT-PCR Negative (Negative); SARS-CoV-2 RNA PCR Negative
[2022-03-04] MEDS: SODIUM CHLORIDE 0.9% IV 1,000 ML 999 ML IV CONT (13:55)
--- NOTE | 2022-03-04 14:00 | PC.NURSE ---
pt has what appears to be stage 1 pressure ulcer to left hip. Repositioned pt multiple times and she continues to turn self back to left side.
--- NOTE | 2022-03-04 15:51 | PM.IMHP ---
H&P: HPI History of Present Illness Date/Time: 03/04/22 15:51 Chief Complaint: Altered mental status Narrative: This is an 86-year-old female patient who has a history of dementia and altered mental status. The patient is from a nursing facility. The patient has been. Lethargic lately. The patient recently was diagnosed with a UTI and prescribed oral antibiotic. The patient has been having very Little oral intake. She has been refusing to take her oral medications. The daughter is at the bedside providing information. Prior to having the UTI the patient was recovering from COVID. H&H is 11.0 in 34.7 which is slightly lower than last month. The patient was positive for UTI and was started on Rocephin. She was also started on IV fluids in the emergency room. Is reported that the patient started to perk up slightly when she received antibiotics and IV fluids. She is negative for influenza A/B and COVID. Head and neck CTA was read as the following1. Moderate nonspecific cerebral white matter disease, which likely represents chronic small vessel ischemic disease. 2. No aneurysm or significant intracranial internal stenosis. 3. 0% stenosis of the proximal internal carotid arteries relative to normal distal artery lumen diameters (NASCET criteria). Chest x-ray was read as Elbert B lines which may be mild pulmonary edema or mild chronic lung disease Patient is being admitted for observation status on the date of service of 09/01/2022 Review of Systems Review of Systems: See HPI All systems reviewed & are unremarkable except as noted in HPI and below Constitutional: Constitutional: Reports as per HPI and Reports no additional constitutional complaints Eyes: Eyes: Reports as per HPI and Reports no additional eye complaints ENT: Reports system reviewed and no additional complaints, except as documented and Reports Normal hearing present Cardiovascular: Cardiovascular: Reports no additional cardiovascular complaints Respiratory: Respiratory: Reports no additional respiratory complaints and Reports no additional respiratory complaints Gastrointestinal: Gastrointestinal: Reports as per HPI and Reports no additional gastrointestinal complaints Musculoskeletal: Musculoskeletal: Reports no additional musculoskeletal complaints Integumentary/Breasts: Skin/Breast: Reports system reviewed and no additional complaints, except as docu and Reports as per HPI Neurologic: Reports system reviewed and no additional complaints, except as documented, Reports as per HPI and Reports Normal hearing present Psychiatric: Psychiatric: Reports no additional psychiatric complaints and Reports as per HPI Endocrine: Endocrine: Reports no additional endocrine complaints Hematologic/Lymphatic: Hematologic/Lymphatic: Reports no additional hematologic/lymphatic complaints Allergic/Immunologic: Allergic/Immunologic: Reports no additional allergic/immunologic complaints [facility] Past Medical History Medical History Basal cell carcinoma Degenerative joint disease Dementia Depression with anxiety Hearing loss Transient ischemic attack Vitamin D deficiency Surgical History Surgical History (Updated 03/04/22 @ 17:18 by Judi Olivia NP) History of basal cell carcinoma excision Neck and right forearm. History of cholecystectomy History of hysterectomy History of laparoscopy History of removal of pigmented skin lesion S/P breast biopsy Family History Family History Grandparent Family history of cardiovascular disease Cerebrovascular accident Father Family history of malignant neoplasm, Onset Age: 71 Mother Family history of chronic obstructive pulmonary disease, Onset Age: 88 Aneurysm Other Hypertension Social History Social History (Updated 03/04/22 @ 17:19 by Judi Olivia NP) Social History: The patient was a homemaker
[2022-03-04 16:19] LABS: Troponin I < 0.012 ng/mL (0.000-0.034)
[2022-03-04] MEDS: cefTRIAXone 2 GM in SODIUM CHLORIDE 0.9% IV 100 ML 200 ML IVPB (16:59)
--- NOTE | 2022-03-04 17:13 | PC.NURSE ---
heart healthy dinner tray ordered
[2022-03-04] MEDS: SODIUM CHLORIDE 0.9% IV 1,000 ML 100 ML IV CONT (21:34)
--- NOTE | 2022-03-04 22:46 | PC.NURSE ---
all belongings placed in hospital bag. Upper and lower dentures placed in denture conatiner and labeled and placed in pt's shoe that is in belongings bag
--- NOTE | 2022-03-04 23:48 | PC.NURSE ---
This patient, Sally Farias, was admitted to Medical Room 341-01. Patient/family oriented to hospital policies and general routines including ID bracelet, bed and alarms, visiting hours, pain management, procedures, bathroom and other care routines, personal items, smoking policy, room service/diet, and visiting hours. Information on how to activate the Rapid Response Team has been discussed. Patient/Family are encouraged to report perceived risks to care and to ask questions if they do not understand what they are told or what they should do.
[2022-03-05 04:20] VITALS: BP 112/72; PULSE 75; RESP 16; TEMP 36.7; O2SAT 99
[2022-03-05 06:20] LABS: Basophils Percent Auto 0.7 % (0.2-1.2); Eosinophils Absolute Auto 0.1 K/mm3 (0-0.3); Eosinophils Percent Auto 2.2 % (0-4.4); Hematocrit 32.2 % (37.0-47.0); Hemoglobin 9.9 g/dL (12.0-15.0); Immature Granulocyte Absolute 0.03 K/mm3 (0.00-0.031); Immature Granulocyte Percent A 0.5 % (0-0.5); Lymphocytes Absolute Auto 1.24 K/mm3 (0.9-3.2); Mean Corpuscular HGB Conc 30.7 g/dl (32-36); Mean Corpuscular Hemoglobin 28.3 pg (26-34); Mean Platelet Volume 8.8 fl (7.4-10.4); Monocytes Absolute Auto 0.6 K/mm3 (0.1-0.6); Monocytes Percent Auto 9.8 % (2.6-8.5); Neutrophils Absolute Auto 3.9 K/mm3 (1.3-6.7); Neutrophils Percent Auto 65.8 % (45.5-73.1); Platelet Count Result 205 k/mm3 (150-375); Red Cell Distribution Width 12.9 % (11.5-14.5); White Blood Count 5.9 K/mm3 (4.5-10.0)
[2022-03-05 06:35] LABS: Lactic Acid Reflex 0.7 mmol/L (0.7-2.0)
[2022-03-05 06:36] LABS: Alanine Aminotransferase 10 U/L (6-35); Albumin Level 2.7 g/dL (3.5-5.1); Alkaline Phosphatase 69 U/L (38-126); Anion Gap 5 mmol/L (8-16); Aspartate Amino Transferase 20 U/L (14-36); Bilirubin,Total 0.3 mg/dL (0.2-1.3); Blood Urea Nitrogen 19 mg/dL (7-17); Calcium 7.5 mg/dL (8.4-10.2); Carbon Dioxide 24 mmol/L (22-30); Chloride 112 mmol/L (98-107); Estimated CRCL calculation 34 ml/min; Estimated Glomerular Filt Rate > 60; Glucose 80 mg/dL (65-110); Sodium 141 mmol/L (137-145)
[2022-03-05 09:30] VITALS: PULSE 75; RESP 16; O2SAT 99
[2022-03-05] MEDS: SODIUM CHLORIDE 0.9% IV 1,000 ML 100 ML IV CONT (09:32)
--- NOTE | 2022-03-05 13:13 | PM.IMPN ---
Progress Note: A&P Assessment and Plan (1) Acute UTI: Code(s): N39.0 - Urinary tract infection, site not specified Status: Acute Assessment and Plan: -the patient was started on Rocephin /6 Discontinue if C/s negative. (2) Dementia: Code(s): F03.90 - Unspecified dementia, unspecified severity, without behavioral disturbance, psychotic disturbance, mood disturbance, and anxiety Status: Chronic Assessment and Plan: -She refuses or is unable to swallow Namenda and Zoloft (home meds) -Tremor and cogwheeling and masklike facies may be signs of advanced Alzheimer dementia or could be due to Parkinson's with dementia. If able to tolerate PO intake, consider trial of Carbidopa-Levodopa. (3) Failure to thrive: Status: Acute Assessment and Plan: -may be related to the dementia advancing dementia vs depression vs gi issues vs acute infection (UTI?) vs encephalitis vs vasculitis -no sign of stroke, bleed, or neoplasm on CTA head and neck -PT/OT trial (4) Acute confusion: Code(s): R41.0 - Disorientation, unspecified Status: Acute Assessment and Plan: -UTI vs progression of dementia (5) Protein calorie malnutrition: Code(s): E46 - Unspecified protein-calorie malnutrition Status: Acute Assessment and Plan: - low albumin suggests chronically low PO intake -GI issues (has worsened anemia) vs advancing dementia - Evaluate anemia, CT Abd/Pelvis -ST eval/tx -continue IVF Subjective Date/time seen: 03/05/22 13:13 Interval history: elderly female with prior history of dementia was ddmitted March 04 with poor oral intake and decreased activity level worsening over several days to weeks. Recently treated for UTI. UA was abnormal here. Patient has not had anything to eat or drink since admission. Refuses to try. Resists care. Her only comment is ' help my stomach'. Review of Systems Review of Systems: ROS unobtainable: Yes unobtainable due to medical condition Exam Narrative: for ill-appearing elderly female lying in hospital bed curled in position. Responds and non directed fashion to verbal and tactile stimuli. Does not follow commands. Responds somewhat to her name but not other questions. Seems to be oriented to person only. Pharyngeal mucosa somewhat dry. Sclerae nonicteric. Pupils round reactive to light. Oral mucosa intact. [place]. Neck without JVD. Chest clear to auscultation. Heart regular rate without audible murmurs. Abdomen soft hypoactive bowel sounds no palpable masses and no obvious tenderness. Extremities without edema cyanosis or clubbing. Musculoskeletal with diffuse muscle wasting and no gross deformity to visual inspection. Neurologic cranial nerves symmetric to visual inspection. Muscle tone is increased throughout with mild tremor of hands with cogwheeling present. Objective Data Vital Signs Vital Signs: Vital Signs - 24 hr 03/04/22 13:30 03/04/22 19:30 03/04/22 14:30 Temperature 98.3 F 98.0 F 98.0 F Pulse Rate 78 78 77 Respiratory Rate 16 16 16 Blood Pressure 132/68 122/68 133/64 Pulse Oximetry 100 98 98 Oxygen Delivery 03/04/22 15:30 03/04/22 16:30 03/04/22 17:30 Temperature 97.8 F 97.9 F Pulse Rate 73 73 71 Respiratory Rate 16 16 16 Blood Pressure 140/68 136/66 120/63 Pulse Oximetry 98 98 99 Oxygen Delivery 03/04/22 17:30 03/04/22 18:30 03/04/22 20:30 Temperature 98.3 F 98.3 F 98.3 F Pulse Rate 78 71 72 Respiratory Rate 16 16 16 Blood Pressure 150/20 H 123/58 L 123/71 Pulse Oximetry 99 98 98 Oxygen Delivery 03/04/22 21:30 03/04/22 22:30 03/04/22 23:13 Temperature 98.3 F 97.0 F L 98 F Pulse Rate 72 71 74 Respiratory Rate 16 16 19 Blood Pressure 113/68 110/64 157/53 H Pulse Oximetry 98 98 100 Oxygen Delivery 03/04/22 23:46 03/05/22 04:20 Temperature 98.1 F Pulse Rate 75 Respiratory Rate 16 Blood Pressure 112/72 Pulse Oximetry 99 O
[2022-03-05 14:00] VITALS: BP 144/53; PULSE 76; RESP 18; TEMP 36.7; O2SAT 99
[2022-03-05 14:49] LABS: CRP 2.5 mg/dL (<1.0)
[2022-03-05 14:51] LABS: Prealbumin 6.4 mg/dL (17.6-36.0)
[2022-03-05 14:53] LABS: Iron 38 ug/dL (37-170)
[2022-03-05 14:56] LABS: Percent Iron Saturation 23 % (20-50)
[2022-03-05 15:48] LABS: Folic Acid 15.5 ng/mL (2.76->20)
[2022-03-05 19:20] VITALS: BP 132/82; PULSE 81; RESP 20; TEMP 36.5; O2SAT 98
[2022-03-05 20:00] VITALS: PULSE 81; RESP 20; O2SAT 98
[2022-03-06 05:16] VITALS: BP 140/77; PULSE 81; RESP 20; TEMP 36.4; O2SAT 99
[2022-03-06 06:04] LABS: Hematocrit 32.4 % (37.0-47.0); Hemoglobin 9.8 g/dL (12.0-15.0); Mean Corpuscular HGB Conc 30.2 g/dl (32-36); Mean Corpuscular Hemoglobin 28.1 pg (26-34); Mean Corpuscular Volume 92.8 fl (80-100); Platelet Count Result 223 k/mm3 (150-375); Red Blood Count 3.49 M/mm3 (4.2-5.4); Red Cell Distribution Width 12.5 % (11.5-14.5); White Blood Count 6.9 K/mm3 (4.5-10.0)
[2022-03-06 06:10] LABS: Anion Gap 7 mmol/L (8-16); Blood Urea Nitrogen 16 mg/dL (7-17); Calcium 7.4 mg/dL (8.4-10.2); Carbon Dioxide 20 mmol/L (22-30); Chloride 109 mmol/L (98-107); Estimated CRCL calculation 34 ml/min; Estimated Glomerular Filt Rate > 60; Glucose 70 mg/dL (65-110); Potassium 3.7 mmol/L (3.4-5.0); Sodium 136 mmol/L (137-145)
[2022-03-06] MEDS: SODIUM CHLORIDE 0.9% IV 1,000 ML 100 ML IV CONT (11:13)
--- NOTE | 2022-03-06 11:19 | PCSTNOTE ---
Addendum entered by Viktoria Young, LOADER OPERATOR/GROUND LEADER 03/06/22 11:21: Correction: Patient having increased difficulty following directions. Original Note: Speech Pathology: Patient minimally responsive per nurse. Will try bedside swallowing evaluation again tomorrow.
[2022-03-06 14:00] VITALS: BP 159/70; PULSE 71; RESP 18; TEMP 36.8; O2SAT 97
--- NOTE | 2022-03-06 15:42 | WPDPN ---
Progress Note: A&P Assessment and Plan (1) Acute UTI: Code(s): N39.0 - Urinary tract infection, site not specified Status: Acute Assessment and Plan: Continue Rocephin x6 days Blood culture pending WBC and lactic acid within normal limits CRP elevated UA positive for leukocyte Estrace (2) Dementia: Code(s): F03.90 - Unspecified dementia, unspecified severity, without behavioral disturbance, psychotic disturbance, mood disturbance, and anxiety Status: Chronic Assessment and Plan: Continue Namenda and Zoloft when patient able to swallow Unsure of patient's baseline (3) Failure to thrive: Status: Acute (4) Acute confusion: Code(s): R41.0 - Disorientation, unspecified Status: Acute Assessment and Plan: UTI vs progression of dementia (5) Protein calorie malnutrition: Code(s): E46 - Unspecified protein-calorie malnutrition Status: Acute Assessment and Plan: ST eval/tx continue IVF Subjective Date/time seen: 03/06/22 15:42 Interval history: Patient remains confused she is alert to self only. She does not appear to be in any distress her only complaint is she has lower back pain. Review of Systems Review of Systems: ROS unobtainable: Yes unobtainable due to mental status Exam Narrative: GENERAL: This is a well-nourished, well-developed patient, in no apparent distress. HEAD: normocephalic, atraumatic. EYES: PERRL. Sclera clear/white. Vision is grossly intact. EARS: External ears normal, auditory canals clear and without drainage, TMs normal without perforation. Hearing grossly intact. NOSE: External nose normal with no obvious nasal discharge, nares without redness, no rhinorrhea. THROAT: Mucous membranes moist, posterior pharynx clear. NECK: Neck supple, non-tender without lymphadenopathy, masses or thyromegaly. CARDIOVASCULAR: Regular rate and rhythm without murmurs, gallops, or rubs. RESPIRATORY: Clear to auscultation. Breath sounds equal bilaterally. No wheezes, rales, or rhonchi. GASTROINTESTINAL: Abdomen soft, non-tender, nondistended. Bowel sounds are active. No hepato-splenomegaly, or palpable masses. No guarding. SKIN: warm, intact with no suspicious lesions or rash, good texture and turgor. NEURO: awake, and orientated to self only with confusion EXTREMITIES: Normal range of motion. No edema. No calf tenderness. Objective Data Vital Signs Vital Signs: Vital Signs - 24 hr 03/05/22 19:20 03/05/22 20:00 03/06/22 05:16 Temperature 97.7 F 97.6 F Pulse Rate 81 81 81 Respiratory Rate 20 20 20 Blood Pressure 132/82 140/77 Pulse Oximetry 98 98 99 Oxygen Delivery Room Air 03/06/22 09:28 03/06/22 14:00 Temperature 98.2 F Pulse Rate 71 Respiratory Rate 18 Blood Pressure 159/70 H Pulse Oximetry 97 Oxygen Delivery Room Air Intake/Output Intake/Output: Intake & Output 03/03/22 03/04/22 03/05/22 03/06/22 23:59 23:59 23:59 23:59 Intake Total 1100 0 220 Output Total 100 Balance 1000 2049 220 Meds/Results Medications: Active Medications Generic Name Dose Route Start Last Admin Trade Name Freq PRN Reason Stop Dose Admin Sodium Chloride 1,000 mls @ 100 mls/hr 03/04/22 17:20 03/06/22 11:13 Normal Saline Iv IV CONT 100 mls/hr .Q10H LIVIA Administration Ceftriaxone Sodium/Dextrose 1 gm in 50 mls @ 100 mls/hr 03/05/22 17:00 03/05/22 17:25 Rocephin 1 Gm/D5w 50 Ml IVPB Infused Q24H LIVIA Infusion Radiology Results: ITS Impressions Chest X-Ray 03/04/22 12:55 IMPRESSION: 1. Elbert B-lines, which may be mild pulmonary edema or mild chronic lung disease. Head/Neck CTA 03/04/22 13:58 IMPRESSION: 1. Moderate nonspecific cerebral white matter disease, which likely represents chronic small vessel ischemic disease. 2. No aneurysm or significant intracranial internal stenosis. 3. 0% stenosis of the proximal internal carotid arteries relative to normal
[2022-03-06 19:38] VITALS: BP 113/53; PULSE 64; RESP 16; TEMP 36.4; O2SAT 100
[2022-03-06 20:00] VITALS: PULSE 64; RESP 16; O2SAT 100
[2022-03-07] MEDS: SODIUM CHLORIDE 0.9% IV 1,000 ML 100 ML IV CONT (01:27)
[2022-03-07 03:13] VITALS: BP 152/68; PULSE 86; RESP 17; TEMP 36.5; O2SAT 97
[2022-03-07 05:54] LABS: Hematocrit 34.1 % (37.0-47.0); Hemoglobin 10.6 g/dL (12.0-15.0); Mean Corpuscular HGB Conc 31.1 g/dl (32-36); Mean Corpuscular Hemoglobin 28.4 pg (26-34); Mean Corpuscular Volume 91.4 fl (80-100); Mean Platelet Volume 9.3 fl (7.4-10.4); Platelet Count Result 235 k/mm3 (150-375); Red Blood Count 3.73 M/mm3 (4.2-5.4); Red Cell Distribution Width 12.5 % (11.5-14.5); White Blood Count 6.9 K/mm3 (4.5-10.0)
[2022-03-07 06:06] LABS: Anion Gap 6 mmol/L (8-16); Blood Urea Nitrogen 10 mg/dL (7-17); Calcium 7.3 mg/dL (8.4-10.2); Carbon Dioxide 21 mmol/L (22-30); Chloride 111 mmol/L (98-107); Estimated CRCL calculation 39 ml/min; Estimated Glomerular Filt Rate > 60; Glucose 83 mg/dL (65-110); Potassium 3.6 mmol/L (3.4-5.0); Sodium 138 mmol/L (137-145)
[2022-03-07 08:00] VITALS: O2SAT 97
[2022-03-07] MEDS: LIDOCAINE 5% PATCH 1 PATCH TRANSDERM (10:36)
--- NOTE | 2022-03-07 11:18 | PCSTNOTE ---
Please refer to the Bedside Swallow Evaluation in the EMR. Please note, silent aspiration cannot be ruled out at bedside.
[2022-03-07 12:43] VITALS: BMI 16.7
--- NOTE | 2022-03-07 13:31 | PM.IMPN ---
Progress Note: A&P Assessment and Plan (1) Acute UTI: Code(s): N39.0 - Urinary tract infection, site not specified Status: Ruled-out Assessment and Plan: UA was positive for Leuk Esterace, and CRP was elevated but Urine culture is negative for any growth. Rocephin is discontinued in this setting. Blood culture pending and preliminarily the results are negative for any growth. WBC and lactic acid within normal limits, does not meet sepsis criteria. (2) Dementia: Code(s): F03.90 - Unspecified dementia, unspecified severity, without behavioral disturbance, psychotic disturbance, mood disturbance, and anxiety Status: Chronic Assessment and Plan: Continue Namenda and Zoloft when patient able to swallow Unsure of patient's baseline Pt. with alertness, but no orientation level that is assessable even to self. Suspect worsening of dementia. (3) Failure to thrive: Status: Acute Assessment and Plan: - Pt. refusing oral intake. Carolann RN, reports that pt. has not had any oral nutrition intake in 2 days. - Her weight has trended downward since admission to current 44.1 kg. - Pt. has physical signs of dehydration separate of vitals and labs with pallor of skin, tenting of skin and requires IVF. - Pt. with one wet depend in past 24 hours. - Continue IVF of NS at 100 ml/hr. - Order placed for IV insertion, and for soft wrist restraints as we do not have a sitter available to keep her from pulling out her IV. (4) Acute confusion: Code(s): R41.0 - Disorientation, unspecified Status: Acute Assessment and Plan: Suspect Progression of Dementia. Urine culture was negative for any growth. (5) Protein calorie malnutrition: Code(s): E46 - Unspecified protein-calorie malnutrition Status: Acute Assessment and Plan: ST evaluation performed and placed her on a pureed diet, Level 4. She had minimal cooperation to complete exam. continue IVF Time Spent With Patient Time with patient: 15 - 25 minutes Subjective Date/time seen: 03/07/22 0815 This elderly female patient is examined at the bedside today in interval assessment. She is alert with no level of orientation even to self. She has reportedly pulled out 4 IV's according to the RN who also endorses she has not had any oral nutrition in 2 days as she is not eating or drinking. She is from an assisted living facility, however, she is not in anyway safe to return to that environment at this time. She has refused any oral medications that have been offered and is not cooperative with any education or redirection. She appears very thin, frail, pale, and physically dry when assessing her oral mucosa and skin turgor, but not in respiratory distress. She does state her back hurts. Review of Systems Review of Systems: ROS unobtainable: Yes unobtainable due to medical condition and unobtainable due to mental status Exam Const: General: no acute distress Other: Elderly, frail, and appears pale HENMT: Mouth: Yes dry mucous membranes Eyes: General: appearance normal, both eyes and all related structures Sclera: sclerae normal Pupils: Equal, round and reactive pupils present EOM: EOMs intact bilaterally Neck: Neck: supple and no JVD Resp: Effort & Inspection: normal respiratory effort Auscultation: diminished lung sounds diffuse (Won't follow commands to thoroughly assess.) Cardio: Rate: regular rate Rhythm: regular rhythm Heart sounds: no gallops, Murmur heart sound present systolic II/ and no rubs GI: Inspection: non-distended GI Palp: Yes Soft to palpation and No Tenderness to palpation present (GI) Auscultation: normal bowel sounds Skin: General skin exam: No normal color (Pale), no rashes or lesions noted and no erythema Rashes: rashes noted Wounds: wounds noted (Left hip) Other: Poor skin turgor with tenting. Neuro: Speech: normal speech Other: Pt. moves all extremities well without deficit.
--- NOTE | 2022-03-07 13:58 | PM.EVENT ---
Event Note Event Note Event Note: I received a call from boarding house cook, William at 1158 AM. He was inquiring about whether or not patient truly required IV as her labs and VS did not reflect an immediate need for IVF. Again I advised that she has poor skin turgor, had only one urination in the past 24 hours documented and the pt is not eating or drinking. I then found out that my order three hours earlier for an IV was not followed as well as my order for the soft wrist restraints to be placed to protect the IV line. He indicated that it would be hard to do restraints on the medical floor, and that the patient's daughter wouldn't like the idea according to the RN. I attempted to call the daughter myself to discuss, as did William. There was no answer and a voicemail was left. He claims that she eats for the daughter which is in direct contradiction of what the nurse told me this morning, being that she had no nutrition in two days. Please see my initial assessment for this. I advised that as of now, my orders for IVF, IV insertion and Soft wrist restraints still stand as the pt. needs the IVF based off of her Physical assessment, and it is in her best interest to receive the fluids. It is now 1403, and I see that the orders placed this AM are still not in effect. There is also no sitter available for the patient.
[2022-03-07 16:13] VITALS: BP 143/62; PULSE 66; RESP 18; TEMP 36.7; O2SAT 100
--- NOTE | 2022-03-07 19:02 | PM.EVENT ---
Event Note Event Note Event Note: I was called by Carolann BEST at approximately 1530 telling me that the family was at the bedside and did not want to do restraints considering they are just a short fix and not a parts counterman. They are interested in Hospice at this point and I offered to speak to them by phone. Care Coordination was asked to come and speak with them regarding initiating of Hospice. They will make a decision tomorrow. OK to leave IV out at this point. No restraints needed.
[2022-03-07 19:38] VITALS: PULSE 66; RESP 18; O2SAT 100
[2022-03-07 19:56] VITALS: BP 124/61; PULSE 80; RESP 18; TEMP 36.6; O2SAT 97
[2022-03-08 05:36] VITALS: BP 136/56; PULSE 74; RESP 16; TEMP 36.1; O2SAT 100
[2022-03-08 05:53] LABS: Hematocrit 30.2 % (37.0-47.0); Hemoglobin 9.6 g/dL (12.0-15.0); Mean Corpuscular HGB Conc 31.8 g/dl (32-36); Mean Corpuscular Hemoglobin 27.6 pg (26-34); Mean Corpuscular Volume 86.8 fl (80-100); Mean Platelet Volume 9.3 fl (7.4-10.4); Platelet Count Result 242 k/mm3 (150-375); Red Blood Count 3.48 M/mm3 (4.2-5.4); Red Cell Distribution Width 12.6 % (11.5-14.5)
[2022-03-08 05:58] LABS: Anion Gap 4 mmol/L (8-16); Blood Urea Nitrogen 7 mg/dL (7-17); Calcium 7.4 mg/dL (8.4-10.2); Carbon Dioxide 23 mmol/L (22-30); Chloride 108 mmol/L (98-107); Estimated CRCL calculation 39 ml/min; Estimated Glomerular Filt Rate > 60; Glucose 87 mg/dL (65-110); Magnesium 1.7 mg/dL (1.6-2.3); Potassium 3.3 mmol/L (3.4-5.0); Sodium 135 mmol/L (137-145)
[2022-03-08] MEDS: LIDOCAINE 5% PATCH 1 PATCH TRANSDERM (08:52)
[2022-03-08 14:00] VITALS: BP 138/59; PULSE 72; RESP 20; TEMP 36.4; O2SAT 98
--- NOTE | 2022-03-08 16:01 | PM.IMPN ---
Progress Note: A&P Assessment and Plan (1) Acute confusion: Code(s): R41.0 - Disorientation, unspecified Status: Acute Assessment and Plan: Suspect Progression of Dementia. Urine culture was negative for any growth. plan for hospice once this is arranged at her facility (2) Acute UTI: Code(s): N39.0 - Urinary tract infection, site not specified Status: Ruled-out Assessment and Plan: UA was positive for Leuk Esterace, and CRP was elevated but Urine culture is negative for any growth. Rocephin is discontinued in this setting. Blood culture showing no growth to date WBC and lactic acid within normal limits, does not meet sepsis criteria. (3) Dementia: Code(s): F03.90 - Unspecified dementia, unspecified severity, without behavioral disturbance, psychotic disturbance, mood disturbance, and anxiety Status: Chronic Assessment and Plan: Continue Namenda and Zoloft when patient able to swallow Unsure of patient's baseline Pt. with alertness, but no orientation level that is assessable even to self. Suspect worsening of dementia. family has decided to proceed with hospice care (4) Failure to thrive: Status: Acute Assessment and Plan: - Pt. refusing oral intake. Carolann RN, reports that pt. has not had any oral nutrition intake in 2 days. - Her weight has trended downward since admission to current 44.1 kg. - Pt. has physical signs of dehydration separate of vitals and labs with pallor of skin, tenting of skin and requires IVF. - Pt. with one wet depend in past 24 hours. - Stop IV fluids (5) Protein calorie malnutrition: Code(s): E46 - Unspecified protein-calorie malnutrition Status: Acute Assessment and Plan: ST evaluation performed and placed her on a pureed diet, Level 4. She had minimal cooperation to complete exam. stop IV fluids Subjective Date/time seen: 03/08/22 16:01 Interval history: 86yo female with dementia here for altered mental status. Patient alert but confused and unable to provide history. Exam Narrative: AF 97.5 138/59 72 20 98% ra Gen - NARD lying flat in bed Chest - clear anteriorly, nml RR CV - RRR S1/S2 Abd - Soft, NT/ND, Positive BS Ext - No pedal edema Neuro - Alert but confused Psych -Pleasant and cooperative Skin - Warm and dry Objective Data Vital Signs Vital Signs: Vital Signs - 24 hr 03/07/22 16:13 03/07/22 19:38 03/07/22 19:56 Temperature 98.0 F 98 F Pulse Rate 66 66 80 Respiratory Rate 18 18 18 Blood Pressure 143/62 H 124/61 Pulse Oximetry 100 100 97 Oxygen Delivery Room Air 03/08/22 05:36 03/08/22 08:00 03/08/22 14:00 Temperature 97 F L 97.5 F L Pulse Rate 74 72 Respiratory Rate 16 20 Blood Pressure 136/56 L 138/59 L Pulse Oximetry 100 98 Oxygen Delivery Room Air Intake/Output Intake/Output: Intake & Output 03/05/22 03/06/22 03/07/22 03/08/22 23:59 23:59 23:59 23:59 Intake Total 2049 1270 340 100 Balance 2049 1270 340 100 Meds/Results Medications: Active Medications Generic Name Dose Route Start Last Admin Trade Name Freq PRN Reason Stop Dose Admin Sodium Chloride 1,000 mls @ 100 mls/hr 03/04/22 17:20 03/08/22 12:54 Normal Saline Iv IV CONT Not Given .Q10H LIVIA Lidocaine 1 patch 03/07/22 09:00 03/08/22 08:52 Lidocaine 5% Patch TRANSDERM 1 patch DAILY LIVIA Administration Radiology Results: ITS Impressions Chest X-Ray 03/04/22 12:55 IMPRESSION: 1. Elbert B-lines, which may be mild pulmonary edema or mild chronic lung disease. Head/Neck CTA 03/04/22 13:58 IMPRESSION: 1. Moderate nonspecific cerebral white matter disease, which likely represents chronic small vessel ischemic disease. 2. No aneurysm or significant intracranial internal stenosis. 3. 0% stenosis of the proximal internal carotid arteries relative to normal distal artery lumen diameters (NASCET criteria).
[2022-03-08 19:18] VITALS: BP 104/52; PULSE 73; RESP 16; TEMP 36.4; O2SAT 98
[2022-03-08 20:00] VITALS: PULSE 73; RESP 16; O2SAT 98
[2022-03-09 05:34] VITALS: BP 115/60; PULSE 65; RESP 16; TEMP 36.6; O2SAT 97
--- NOTE | 2022-03-09 10:29 | PM.DS ---
DS: Admitting Diagnosis Discharge Date 03/09/22 Admitting Diagnosis Altered mental status DS: Discharge Diagnosis Discharge Diagnosis (1) Acute confusion: Code(s): R41.0 - Disorientation, unspecified Status: Acute Assessment and Plan: Suspect Progression of Dementia. Urine culture was negative for any growth. plan for hospice once this is arranged at her facility (2) Acute UTI: Code(s): N39.0 - Urinary tract infection, site not specified Status: Ruled-out Assessment and Plan: UA was positive for Leuk Esterace, and CRP was elevated but Urine culture is negative for any growth. Rocephin is discontinued in this setting. Blood culture showing no growth to date WBC and lactic acid within normal limits, does not meet sepsis criteria. (3) Dementia: Code(s): F03.90 - Unspecified dementia, unspecified severity, without behavioral disturbance, psychotic disturbance, mood disturbance, and anxiety Status: Chronic Assessment and Plan: Continue Namenda and Zoloft when patient able to swallow Unsure of patient's baseline Pt. with alertness, but no orientation level that is assessable even to self. Suspect worsening of dementia. family has decided to proceed with hospice care (4) Failure to thrive: Status: Acute Assessment and Plan: - Pt. refusing oral intake. Carolann RN, reports that pt. has not had any oral nutrition intake in 2 days. - Her weight has trended downward since admission to current 44.1 kg. - Pt. has physical signs of dehydration separate of vitals and labs with pallor of skin, tenting of skin and requires IVF. - Pt. with one wet depend in past 24 hours. - Stop IV fluids (5) Protein calorie malnutrition: Code(s): E46 - Unspecified protein-calorie malnutrition Status: Acute Assessment and Plan: ST evaluation performed and placed her on a pureed diet, Level 4. She had minimal cooperation to complete exam. stop IV fluids DS: Summary Hospital Course Hospital Course: 86-year-old female patient who has a history of dementia and altered mental status.? The patient is from a nursing facility.? The patient has been lethargic lately.? The patient recently was diagnosed with a UTI and prescribed oral antibiotic.? The patient has been having very Little oral intake.? She has been refusing to take her oral medications.? The daughter is at the bedside providing? information.? Prior to having the UTI the patient was recovering from COVID.? H&H is 11.0 in 34.7 which is slightly lower than last month.? The patient was positive for UTI and was started on Rocephin.? She was also started on IV fluids in the emergency room.? Is reported that the patient started to perk up slightly when she received antibiotics and IV fluids. Urine culture came back negative for growth, Rocephin discontinued. Blood cultures negative. The rest of her labs were within normal limits. Severe failure to thrive noted. Hospice was chosen at discharge. Time Spent with Patient Time attestation: Total time spent providing and/or coordinating discharge services: DS: Data Data Completed and Pending Labs on day of discharge: Preliminary micro results at discharge 03/04/22 17:58 Blood Culture - Preliminary Blood 03/04/22 17:58 Blood Culture - Preliminary Blood Discharge Plan Discharge Attending physician on discharge: Melba Harrison Discharging Clinician: Melba Harrison Patient Disposition: Hospice - Home Activity: as tolerated Diet: as tolerated Stand Alone Forms: General Discharge Information Discharge Medications: New lidocaine [Lidoderm] 5 % Adhesive Patch,Medicated 1 patch transdermal DAILY 30 Days Qty: 30 0RF Continued mirtazapine 7.5 mg Tablet 7.5 mg PO HS sertraline 50 mg Tablet 100 mg PO DAILY diclofenac sodium 1 % Gel 2 g TOPICAL QID PRN (Reason: Pain) Rx Instructions:
[2022-03-09 14:13] VITALS: BP 136/66; PULSE 70; RESP 20; TEMP 36.1; O2SAT 97
[2022-03-09] MEDS: LIDOCAINE 5% PATCH 1 PATCH TRANSDERM (15:46)
== END 2022-03-09 18:03 | disposition hospice, home (50) | DRG 884 ==
LOC: ANHED 17:02 → ANH3MEDSUR 19:34 → ANH3MED 21:55
PROVIDERS: Internal Medicine; Nurse Practitioner; Admitting Provider Family Medicine; Emergency Provider Emergency Medicine; PCP Nurse Practitioner Family; Visit Provider Student in an Organized Health Care Education/Training Program
DX: F03.90 Unspecified dementia, unspecified severity, without behavioral disturbance, psychotic disturbance, mood disturbance, and anxiety (principal); N39.0 Urinary tract infection, site not specified; Z68.1 Body mass index [BMI] 19.9 or less, adult; E46 Unspecified protein-calorie malnutrition; M19.90 Unspecified osteoarthritis, unspecified site; E55.9 Vitamin D deficiency, unspecified; R62.7 Adult failure to thrive; F41.9 Anxiety disorder, unspecified; F32.A Depression, unspecified; Z20.822 Contact with and (suspected) exposure to COVID-19; Z66 Do not resuscitate; Z86.73 Personal history of transient ischemic attack (TIA), and cerebral infarction without residual deficits
CPT/HCPCS: 36415; 51701; 70496; 70498; 71045; 74176; 80048; 80053; 81001; 82607; 82746; 83540; 83550; 83605; 83735; 84134; 84443; 84484; 85025; 85027; 85610; 85730; 86140; 87040; 87086; 87636; 92610; 93005; 96361; 96365; 96367; 99285; A9270; G0378; J0696; J7030; Q9967